=== PATIENT | female | born 1950 | race Caucasian/White ===

== ENCOUNTER → 2021-09-23 13:38 | Outpatient (BNVA) | payer MEDICARE, SELFPAY | PROVIDERS: PCP Internal Medicine; Visit Provider Nurse Practitioner Family | DX: G47.33 Obstructive sleep apnea (adult) (pediatric) (principal); G24.01 Drug induced subacute dyskinesia; T43.505A Adverse effect of unspecified antipsychotics and neuroleptics, initial encounter | CPT/HCPCS: 99212 ==

== ENCOUNTER → 2022-05-12 14:09 | Outpatient (BNVA) | payer MEDICARE, SELFPAY | PROVIDERS: PCP Internal Medicine; Visit Provider Nurse Practitioner Family | DX: G24.01 Drug induced subacute dyskinesia (principal); T43.505A Adverse effect of unspecified antipsychotics and neuroleptics, initial encounter; G47.33 Obstructive sleep apnea (adult) (pediatric); R25.2 Cramp and spasm | CPT/HCPCS: 99212 ==

== ENCOUNTER → 2022-11-14 12:42 | Outpatient (BNVA) | payer MEDICARE, SELFPAY | PROVIDERS: PCP Internal Medicine; Visit Provider Nurse Practitioner Family | DX: G47.33 Obstructive sleep apnea (adult) (pediatric) (principal); G24.01 Drug induced subacute dyskinesia; T43.505A Adverse effect of unspecified antipsychotics and neuroleptics, initial encounter; R25.2 Cramp and spasm | CPT/HCPCS: 99212 ==

== ENCOUNTER 2023-11-13 11:48 | Outpatient (AMB) | payer MEDICARE, SELFPAY ==
[2023-11-13 12:56] VITALS: BP 112/74; PULSE 65; O2SAT 95; BMI 24.7
--- NOTE | 2023-11-13 12:56 | A.OFFVIS_ITS ---
Vital Signs 11/13/23 12:56 Height 5 ft 5 in Weight 148 lb 8 oz BMI 24.7 BP 112/74 Blood Pressure Location Rt brachial Position Sitting Pulse 65 Pulse Source Pulse Oximeter Pulse Oximetry (%) 95 Oxygen Delivery Method Room Air Intake Visit Reasons: 1YR Follow up appt-Unable to lvm Intake Note: Patient presents for 1 year follow up. Patient was doing ok until all of sudden she started getting a little fatigue,had a procedure for her heart and doing better. Allergies hayfever Allergy (Unknown, Uncoded 11/13/23 12:59) Unknown HPI Comments Details: 73-yr-old female presents for follow-up visit. Pt underwent an interval cardiac ablation to manage tachycardia, palpitations, SOB- which was very helpful. She has started on Vit B-[address] Norton. She has been having more daytime fatigue. She wonders if she is just doing too much or expecting too much of herself. She has noticed increased involuntary foot movements- does not prevent herself from walking- can stop it. Has not noticed any oral movements- but never really has. She usually sleeps about 7 hrs. Uses her CPAP nightly. She does have restless sleep- has chronic low back pain which radiates into the LLE. Has LLE spasms/tightness, not full cramps. Uses Tylenol prn. Avoids NSAIDs d/t GERD. States was told she has degenerative disc changes in lumbar region. Also notes sensations of rectum pressure/fullness- like she would need to ahve a BM, but has an ostomy. This is a/w inability to void and bladder fullness. She has LLE weakness. She has never had l-spine mri. Compliant with Magnesium. Previous tried Gabapentin 300mg qd-bid- was not overly helpful. She has been doing PT exercises. 08/09/23- 11/06/23, 90 day CPAP compliance report looks good- usage > 4 hrs 100%, average use 6 hrs 57 min, residual AHI 4.1/hr. [facility] Medical History (Updated 11/13/23 @ 13:55 by GAYLA Hills) Basal cell carcinoma Surgical History (Updated 11/13/23 @ 13:01 by TALIB Logan) H/O heart surgery S/P Mohs surgery for basal cell carcinoma History of cataract extraction with lens replacement H/O splenectomy Family History Father Cancer Stroke Mother Cancer Social History Alcohol intake: never Patient Tobacco Use Status: Former Tobacco user Review of Systems Const All systems reviewed & are unremarkable except as noted in HPI and below Physical Exam Vital Signs: Last Vital Signs Pulse 65 11/13/23 12:56 BP 112/74 11/13/23 12:56 Pulse Ox 95 11/13/23 12:56 Oxygen Delivery Method Room Air 11/13/23 12:56 BMI result Body Mass Index 24.7 Const General: no acute distress Orientation/consciousness: patient oriented x3 HEENT Head: Yes normocephalic Resp Effort & Inspection: normal respiratory effort and able to speak in complete sentences Auscultation: clear to auscultation bilaterally Neuro Other: LLE MS 5-/5 on hip flexor RLE MS: 5/5 Slow to stand, slight stoop, short steps, antalgic gait, steady w/ walker. General: patient oriented x3 Deep tendon reflexes (DTR's): Right patellar reflex intensity grade: 2+ and Left patellar reflex intensity grade: 2+ Psych Mental Status: mental status grossly normal Speech and movement: Clear speech present Attitude: cooperative Results Reviewed Results Reviewed: PAP compliance report- see HPI Assessment & Plan Assessment & Plan (1) Obstructive sleep apnea: Code(s): G47.33 - Obstructive sleep apnea (adult) (pediatric) Category: Medical (2) Leg cramping: Code(s): R25.2 - Cramp and spasm Category: Medical (3) Neuroleptic-induced tardive dyskinesia: Comment: h/o Risperdal exposure, chronic Effexor. Code(s): G24.01 - Drug induced subacute dyskinesia; T43.505A - Adverse effect of unspecified antipsychotics and neuroleptics, initial encounter Category: Medical (4) Low back pain radiating to left lower extremity: Code(s): M54.50 - Low back pain, unspecified; M79.605 - Pain in left leg Category: Medical Plan Continue CPAP 8 cmH2O nightly > 4 hrs nightly, as pt is having good clinical reduction in AHI from use. Clean machine and change PAP supplies routinely. Pt advised that using CPAP cleaning machines may result in her PAP amchine's warranty to be voided. For fatigue- Continue B-12 supplement per PCP. Monitor effect. ? Will monitor TD s/s- currently mild, no indications to start TD agents at this time- pt not currently on any neuroleptics. Continue Magnesium 400mg qhs. For low back pain radiating into LLE w/ LLE weakness, rectal discomfort/bladder issues: Pt advised to undergo l-spine MRI- pt will think about this. Consider retrying gabapentin, or trying pregabalin- she will think about this. May try OTC topical Magnesium or Lidocaine lotions/creams/gels, ? f/u in 6 months or sooner prn. Coding Level of Care Code Est Pt Level 4 (37492) Diagnoses Obstructive sleep apnea G47.33 Leg cramping R25.2 Neuroleptic-induced tardive dyskinesia G24.01; T43.505A Low back pain radiating to left lower extremity M54.50; M79.605
== END 2023-11-13 13:53 | disposition home or self-care (01) ==
PROVIDERS: Visit Provider Nurse Practitioner Family
DX: G47.33 Obstructive sleep apnea (adult) (pediatric) (principal); G24.01 Drug induced subacute dyskinesia; T43.505A Adverse effect of unspecified antipsychotics and neuroleptics, initial encounter; M54.50 Low back pain, unspecified; M79.605 Pain in left leg
CPT/HCPCS: 99214

== ENCOUNTER → 2023-11-13 11:48 | Outpatient (BNVA) | payer MEDICARE, SELFPAY | PROVIDERS: Visit Provider Nurse Practitioner Family | DX: G47.33 Obstructive sleep apnea (adult) (pediatric) (principal); G24.01 Drug induced subacute dyskinesia; T43.505A Adverse effect of unspecified antipsychotics and neuroleptics, initial encounter; M54.50 Low back pain, unspecified; M79.605 Pain in left leg | CPT/HCPCS: 99212 ==

== ENCOUNTER 2024-05-29 14:38 | Outpatient (AMB) | payer MEDICARE, SELFPAY ==
[2024-05-29 14:50] VITALS: BP 132/78; PULSE 65; O2SAT 96; BMI 24.8
--- NOTE | 2024-05-29 14:50 | A.OFFVIS_ITS ---
Vital Signs 05/29/24 14:50 Height 5 ft 5 in Weight 149 lb BMI 24.8 BP 132/78 Blood Pressure Location Rt brachial Position Sitting Pulse 65 Pulse Source Pulse Oximeter Pulse Oximetry (%) 96 Oxygen Delivery Method Room Air Intake Visit Reasons: 6 month F/U Treatment Technician Required: No Accompanied by: Self / Same As Patient Allergies hayfever Allergy (Unknown, Uncoded 11/13/23 12:59) Unknown HPI Comments Details: 73-yr-old female presents for follow-up visit. Pt underwent an interval cardiac ablation in 2023 to manage tachycardia, palpitations, SOB- which was very helpful at [facility]. Dr. Finn. She was tarted on Vit B-12 IM at [facility] by Dr Norton. She has been having more daytime fatigue, dragging and foggy. She has noticed increased involuntary foot movements- does not prevent herself from walking- can stop it. Has not noticed any oral movements- but never really has. CPAP Compliance 02/28/2024- 05/27/2024 She usually sleeps about 7 hrs. Uses her CPAP nightly, Average use >4 hours 97%, average nightly use 6 hours and 52 min, pressures is 8cmH20, residual AHI is 5.7. She adjusts the pressures to 9cmH20 as feels smothered by the lower pressure. She does have restless sleep- has chronic low back pain which radiates into the LLE. Has LLE spasms/tightness, not full cramps. Uses Tylenol prn. Avoids NSAIDs d/t GERD. States was told she has degenerative disc changes in lumbar region. She has LLE weakness. Compliant with Magnesium, it helps with her facial tremors. She has been doing exercises with resistance bands and bike at home. She lives alone and manages all her ADLs by herself. She does have bouts of depression, uses Venlafaxine and it works well. [facility] Medical History Basal cell carcinoma Surgical History H/O heart surgery S/P Mohs surgery for basal cell carcinoma History of cataract extraction with lens replacement H/O splenectomy Family History Father Cancer Stroke Mother Cancer Social History Alcohol intake: never Patient Tobacco Use Status: Former Tobacco user Physical Exam Vital Signs: Last Vital Signs Pulse 65 05/29/24 14:50 BP 132/78 05/29/24 14:50 Pulse Ox 96 05/29/24 14:50 Oxygen Delivery Method Room Air 05/29/24 14:50 BMI result Body Mass Index 24.8 Const General: no acute distress Orientation/consciousness: patient oriented x3 HEENT Head: Yes normocephalic Resp Effort & Inspection: normal respiratory effort and able to speak in complete sentences Auscultation: clear to auscultation bilaterally Neuro Other: LLE MS 5-/5 on hip flexor RLE MS: 5/5 Slow to stand, slight stoop, short steps, antalgic gait, steady w/ walker. General: patient oriented x3 Deep tendon reflexes (DTR's): Right patellar reflex intensity grade: 2+ and Left patellar reflex intensity grade: 2+ Psych Mental Status: mental status grossly normal Speech and movement: Clear speech present Attitude: cooperative Assessment & Plan Assessment & Plan (1) Obstructive sleep apnea: Code(s): G47.33 - Obstructive sleep apnea (adult) (pediatric) Category: Medical (2) Neuroleptic-induced tardive dyskinesia: Comment: h/o Risperdal exposure, chronic Effexor. Code(s): G24.01 - Drug induced subacute dyskinesia; T43.505A - Adverse effect of unspecified antipsychotics and neuroleptics, initial encounter Category: Medical (3) Low back pain radiating to left lower extremity: Code(s): M54.50 - Low back pain, unspecified; M79.605 - Pain in left leg Category: Medical Plan CPAP is compliance is good, will increase pressure to 9cmH20, and see if the smothering feeling resolves. Continue CPAP nightly, as patient continues to experience good clinical effects. Continue Magnesium 400 mg PO daily for facial spasms. Will continue f/u in 6months, to conduct titration study if patient continues to feel 8cmH20 is not working well for her. Patient was seen with Dr. Boyd. Coding Level of Care Code Est Pt Level 4 (50153) Complex EM visit Add On G2211 Diagnoses Obstructive sleep apnea G47.33 Neuroleptic-induced tardive dyskinesia G24.01; T43.505A Low back pain radiating to left lower extremity M54.50; M79.605
== END 2024-05-29 15:28 | disposition home or self-care (01) ==
PROVIDERS: PCP Internal Medicine; Visit Provider Physician Assistant Medical
DX: G47.33 Obstructive sleep apnea (adult) (pediatric) (principal); G24.01 Drug induced subacute dyskinesia; T43.505A Adverse effect of unspecified antipsychotics and neuroleptics, initial encounter; M54.50 Low back pain, unspecified; M79.605 Pain in left leg
CPT/HCPCS: 99214; G2211

== ENCOUNTER → 2024-05-29 14:38 | Outpatient (BNVA) | payer MEDICARE, SELFPAY | PROVIDERS: PCP Internal Medicine; Visit Provider Physician Assistant Medical | DX: G47.33 Obstructive sleep apnea (adult) (pediatric) (principal); G24.01 Drug induced subacute dyskinesia; M54.50 Low back pain, unspecified; M79.605 Pain in left leg; T43.505D Adverse effect of unspecified antipsychotics and neuroleptics, subsequent encounter | CPT/HCPCS: 99212 ==

== ENCOUNTER 2024-11-27 13:15 | Outpatient (AMB) | payer MEDICARE, SELFPAY ==
--- OUTSIDE RECORDS SUMMARY | 2024-11-27 14:06 | XMS_ITS | Data Portability ---
Author Organization [facility], Main Office Address [address] [facility] [address] [place] [id number] Care Team Providers Care Bunch Maker Name Role Phone RASHAWN BUITRAGO Primary Care Provider JIMI JUAREZ Grinder Set Up Operator Thread SERGE MAXWELL Neurologist PEPE TATUM Energy Technician RACHEL CASAREZ Orthopedic Surgeon GEORGE NICK Orthopedic Surgeon [phone] [address] Mattress Weaver [facility] Referrin g Provider CYNDI BEST Weights And Measures Sealer STUART SHARP Referring Provider [phone] Assessment Encounter Date Assessment Date Assessment LastModified by Organization Details LastModified Time 02/03/2020 02/03/2020 This service was provided using telemedicine. Patient consented to telephone visit Patient was located at at home Provider was located in the office. No other persons participated in the telemedicine visit except for the patient unless otherwise indicated here. Total time of visit was 35 minutes. [email or web address] Not available 02/03/2020 12:05:20 Plan of Treatment Reminders Order Date Submit Date Provider Last Modified By Organization Details Last Modified Time Details Appointments None recorded. Lab lipid panel, serum 2019 [place] [facility], [address] [facility], [address], [address], 0 17:07:54 CMP, serum or plasma 2019 020 [facility], [address], [address], [place], [address], 0 17:07:52 CMP, serum or plasma 2018 019 [facility], [address], [address], [place], [address], 9 21:05:22 CBC w/ auto diff 2018 019 [facility], [address], [address], [place], [address], 9 19:26:18 lipid panel, serum 2018 019 [facility], [address], [address], [place], [address], 9 20:56:15 CBC w/ auto diff 2017 018 [facility], [address], [address], [place], [address], 8 19:44:02 BMP, serum or plasma 2017 018 [facility], [address], [address], [place], [address], 8 15:40:29 CBC w/ auto diff 2017 018 [facility], [address], [address], [place], [address], 9 19:55:50 Referral None recorded. Procedures None recorded. Surgeries None recorded. Imaging electrocard iogram 2018 019 [email or web address] In-Office Order, Internal Use Only DO Not Attach Compendium DO Not Attach Compendium, Do Not Delete/merge, [id number] 9 16:54:58 Medication Orders None recorded. Patient TargetsNo targets recorded. Patient Instructions Encounter Date Encounter Id Patient Instructions Last Modified By Organization Details Last Modified Time 05/02/2018 [id number] At [facility] follow up visit, all current and discharge medications (OTC, herbal therapies, supplements) reviewed and reconciled with patient and or caregiver, including potential side effects, drug interactions, instructions, and the consequences of not taking medication. Reviewed potential barriers to medication adherence, such as side effects from medication or cost of medication. I have reviewed the note and agree with the assessment and plan of care. [email or web address] Not available 05/03/2018 05:34:00 05/17/2018 [id number] coughing up blood: care instructions [email or web address] Not available 05/18/2018 10:43:17 pneumonia: care instructions [email or web address] Not available 05/17/2018 13:25:35 bronchiectasis: care instructions [email or web address] Not available 05/18/2018 10:43:59 anemia: care instructions [email or web address] Not available 05/17/2018 13:25:35 Medications (OTC, herbal therapies, supplements) reviewed and reconciled with patient and or caregiver, including potential side effects, drug interactions, instructions, and the consequences of not taking medication. Reviewed potential barriers to medication adherence, such as side effects from medication or cost of medication. [email or web address] Not available 05/18/2018 10:43:43 12/03/2018 [id number] high cholesterol: care instructions [email or web address] Not available 12/03/2018 13:50:20 crohn's disease: care instructions [email or web address] Not available 12/03/2018 13:47:14 preventing falls: care instructions [email or web address] Not available 12/03/2018 13:47:14 medicare preventive services guide (female 74yrs and under) [email or web address] Not available 12/03/2018 13:47:14 depression treatment: care instructions [email or web address] Not available 12/03/2018 13:47:14 Reviewed the risks and benefits of continuous churn buttermaker opiate use, OUD discussed with the patient. Reviewed the risks and benefits of other non-opioid pain therapies. Reviewed caution with driving, fall risk, treatment for constipation. Patient verbalizes understanding of risk and benefits, and of OUD. [email or web address] Not available 12/03/2018 13:07:21 04/17/2019 [id number] low blood pressure: care instructions [email or web address] Not available 04/17/2019 16:29:47 02/03/2020 [id number] high cholesterol: care instructions [email or web address] Not available 02/03/2020 12:08:26 preventing falls: care instructions [email or web address] Not available 02/03/2020 12:05:21 medicare preventive services guide (female 74yrs and under) [email or web address] Not available 02/03/2020 12:05:21 depression treatment: care instructions [email or web address] Not available 02/03/2020 12:09:05 Reviewed the risks and benefits of continuous churn buttermaker opiate use, OUD discussed with the patient. Reviewed the risks and benefits of other non-opioid pain therapies. Reviewed caution with driving, fall risk, treatment for constipation. Patient verbalizes understanding of risk and benefits, and of OUD. [email or web address] Not available 02/03/2020 11:01:00 Reason for Referral None Reported. Results Created Date Observation Date Name Description Value Unit Range Abnormal Flag Note LastModifiedBy Organization Detail LastModifiedTime 05/02/2005/02/2018 BMP, serum or plasm a glucose 91 mg/dL (70-99 ) Not Available [facility] (Centralized Electronic Ordering - All Locations) Patient Can Go To The Location Of Their Choice, [id number] 05/02/2018 15:40:29 05/02/2005/02/2018 BMP, serum or plasm a BUN 23 mg/dL (8-23) Not Available [facility] (Centralized Electronic Ordering - All Locations) Patient Can Go To The Location Of Their Choice, [id number] 05/02/2018 15:40:29 05/02/2005/02/2018 BMP, serum or plasm a creatinine 0.8 mg/dL (0.5-1 .0) Not Available [facility] (Centralized Electronic Ordering - All Locations) Patient Can Go To The Location Of Their Choice, 05/02/2018 15:40:29 05/02/2005/02/2018 BMP, serum or plasm a sodium 143 mmol/ L (133-1 45) Not Available [facility] (Centralized Electronic Ordering - All Locations) Patient Can Go To The Location Of Their Choice, [id number] 05/02/2018 15:40:29 05/02/2005/02/2018 BMP, serum or plasm a potassium 4.5 mmol/ L (3.6-5 .2) Not Available [facility] (Centralized Electronic Ordering - All Locations) Patient Can Go To The Location Of Their Choice, 05/02/2018 15:40:29 05/02/2005/02/2018 BMP, serum or plasm a chloride 108 mmol/ L (98-10 7) high Not Available [facility] (Centralized Electronic Ordering - All Locations) Patient Can Go To The Location Of Their Choice, 05/02/2018 15:40:29 05/02/2005/02/2018 BMP, serum or plasm a bicarbonate 22 mmol/ L (22-29 ) Not Available [facility] (Centralized Electronic Ordering - All Locations) Patient Can Go To The Location Of Their Choice, 05/02/2018 15:40:29 05/02/2005/02/2018 BMP, serum or plasm a anion gap 13 (4-17) Not Available [facility] (Centralized Electronic Ordering - All Locations) Patient Can Go To The Location Of Their Choice, 05/02/2018 15:40:29 05/02/2005/02/2018 BMP, serum or plasm a calcium 9.3 mg/dL (8.6-1 0.5) Not Available [facility] (Centralized Electronic Ordering - All Locations) Patient Can Go To The Location Of Their Choice, 05/02/2018 15:40:29 05/02/2005/02/2018 BMP, serum or plasm a est GFR non 75 mL/mi n/1.7 3_M2 Creat inine based estim ated glome rular filtr ation rate (eGFR ) is calcu lated using the Chron ic Kidne y Disea se Epide miolo gy Colla borat ion (CKD- EPI). The CKD-E PI creat inine equat ion has not been valid ated in child traci (<18 years ), pregn ant women or in some racia l or ethni c subgr oups other than Cauca sians and Afric an Ameri cans. Not Available [facility] (Centralized Electronic Ordering - All Locations) Patient Can Go To The Location Of Their Choice, 05/02/2018 15:40:29 05/02/2005/02/2018 BMP, serum or plasm a est GFR 87 mL/mi n/1.7 3_M2 Creat inine based estim ated aryan hawkinsr filtr ation rate (eGFR ) is calcu lated using the Chron ic Kidne y Disea se Epide miolo gy Colla borat ion (CKD- EPI). The CKD-E PI creat inine equat ion has not been valid ated in child traci (<18 years ), pregn ant women or in some racia l or ethni c subgr oups other than Cauca sians and Afric an Ameri cans. Not Available [facility] (Centralized Electronic Ordering - All Locations) Patient Can Go To The Location Of Their Choice, 05/02/2018 15:40:29 05/17/2005/17/2018 CBC w/ auto diff WBC 8.6 K/mm3 (4.0-1 1.0) Not Available [facility] (Centralized Electronic Ordering - All Locations) Patient Can Go To The Location Of Their Choice, 05/17/2018 19:44:02 05/17/2005/17/2018 CBC w/ auto diff RBC 3.86 M/mm3 (4.20- 5.40) low Not Available [facility] (Centralized Electronic Ordering - All Locations) Patient Can Go To The Location Of Their Choice, 05/17/2018 19:44:02 05/17/2005/17/2018 CBC w/ auto diff HGB 12.3 gm/dL (11.7- 15.5) Not Available [facility] (Centralized Electronic Ordering - All Locations) Patient Can Go To The Location Of Their Choice, 05/17/2018 19:44:02 05/17/2005/17/2018 CBC w/ auto diff HCT 38.3 % (35.7- 45.8) Not Available [facility] (Centralized Electronic Ordering - All Locations) Patient Can Go To The Location Of Their Choice, 05/17/2018 19:44:02 05/17/2005/17/2018 CBC w/ auto diff MCV 99.2 fL (80.0- 100.0) Not Available [facility] (Centralized Electronic Ordering - All Locations) Patient Can Go To The Location Of Their Choice, 05/17/2018 19:44:02 05/17/20 18 05/17/2018 CBC w/ auto diff MCH 31.9 pg (27.0- 34.0) Not Available [facility] (Centralized Electronic Ordering - All Locations) Patient Can Go To The Location Of Their Choice, 05/17/2018 19:44:02 05/17/20 18 05/17/2018 CBC w/ auto diff MCHC 32.1 g/dL (33.0- 37.0) low Not Available [facility] (Centralized Electronic Ordering - All Locations) Patient Can Go To The Location Of Their Choice, 05/17/2018 19:44:02 05/17/20 18 05/17/2018 CBC w/ auto diff plt 370 K/mm3 (150-4 60) Not Available [facility] (Centralized Electronic Ordering - All Locations) Patient Can Go To The Location Of Their Choice, 05/17/2018 19:44:02 05/17/20 18 05/17/2018 CBC w/ auto diff RDW-SD 50.5 fL (<47.0 ) high Not Available [facility] (Centralized Electronic Ordering - All Locations) Patient Can Go To The Location Of Their Choice, 05/17/2018 19:44:02 05/17/20 18 05/17/2018 CBC w/ auto diff MPV 11.2 fL (9.4-1 2.4) Not Available [facility] (Centralized Electronic Ordering - All Locations) Patient Can Go To The Location Of Their Choice, 05/17/2018 19:44:02 05/17/20 18 05/17/2018 CBC w/ auto diff automated NRBC 0.0 #/100 _WBC' s Not Available [facility] (Centralized Electronic Ordering - All Locations) Patient Can Go To The Location Of Their Choice, 05/17/2018 19:44:02 05/17/20 18 05/17/2018 CBC w/ auto diff abs. NRBC 0.0 K/mm3 Not Available [facility] (Centralized Electronic Ordering - All Locations) Patient Can Go To The Location Of Their Choice, 05/17/2018 19:44:02 05/17/20 18 05/17/2018 CBC w/ auto diff neut # 5.5 K/mm3 (1.3-7 .0) Not Available [facility] (Centralized Electronic Ordering - All Locations) Patient Can Go To The Location Of Their Choice, 05/17/2018 19:44:02 05/17/20 18 05/17/2018 CBC w/ auto diff lymph # 1.6 K/mm3 (0.8-3 .1) Not Available [facility] (Centralized Electronic Ordering - All Locations) Patient Can Go To The Location Of Their Choice, 05/17/2018 19:44:02 05/17/20 18 05/17/2018 CBC w/ auto diff mono# 0.9 K/mm3 (0.4-0 .9) Not Available [facility] (Centralized Electronic Ordering - All Locations) Patient Can Go To The Location Of Their Choice, 05/17/2018 19:44:02 05/17/2005/17/2018 CBC w/ auto diff eo # 0.5 K/mm3 (0.0-0 .4) high Not Available [facility] (Centralized Electronic Ordering - All Locations) Patient Can Go To The Location Of Their Choice, 05/17/2018 19:44:02 05/17/20 18 05/17/2018 CBC w/ auto diff baso # 0.1 K/mm3 (0.0-0 .1) Not Available [facility] (Centralized Electronic Ordering - All Locations) Patient Can Go To The Location Of Their Choice, 05/17/2018 19:44:02 05/17/20 18 05/17/2018 CBC w/ auto diff abs. imm gran 0.1 K/mm3 Not Available [facility] (Centralized Electronic Ordering - All Locations) Patient Can Go To The Location Of Their Choice, 05/17/2018 19:44:02 05/17/20 18 05/17/2018 CBC w/ auto diff neut 64.2 % (44-76 ) Not Available [facility] (Centralized Electronic Ordering - All Locations) Patient Can Go To The Location Of Their Choice, 05/17/2018 19:44:02 05/17/20 18 05/17/2018 CBC w/ auto diff lymph 18.4 % (15-43 ) Not Available [facility] (Centralized Electronic Ordering - All Locations) Patient Can Go To The Location Of Their Choice, 05/17/2018 19:44:02 05/17/20 18 05/17/2018 CBC w/ auto diff monocyte 10.0 % (4.5-1 0.5) Not Available [facility] (Centralized Electronic Ordering - All Locations) Patient Can Go To The Location Of Their Choice, 05/17/2018 19:44:02 05/17/2005/17/2018 CBC w/ auto diff eo 5.7 % (0-6) Not Available [facility] (Centralized Electronic Ordering - All Locations) Patient Can Go To The Location Of Their Choice, 05/17/2018 19:44:02 05/17/2005/17/2018 CBC w/ auto diff baso 1.0 % (0-2) Not Available [facility] (Centralized Electronic Ordering - All Locations) Patient Can Go To The Location Of Their Choice, 05/17/2018 19:44:02 05/17/2005/17/2018 CBC w/ auto diff imm gran 0.7 % (0.0-0 .6) high Not Available [facility] (Centralized Electronic Ordering - All Locations) Patient Can Go To The Location Of Their Choice, 05/17/2018 19:44:02 05/17/2005/17/2018 BMP, serum or plasm a glucose 88 mg/dL (70-99 ) Not Available [facility] (Centralized Electronic Ordering - All Locations) Patient Can Go To The Location Of Their Choice, 05/17/2018 21:33:52 05/17/2005/17/2018 BMP, serum or plasm a BUN 14 mg/dL (8-23) Not Available [facility] (Centralized Electronic Ordering - All Locations) Patient Can Go To The Location Of Their Choice, 05/17/2018 21:33:52 05/17/2005/17/2018 BMP, serum or plasm a creatinine 0.8 mg/dL (0.5-1 .0) Not Available [facility] (Centralized Electronic Ordering - All Locations) Patient Can Go To The Location Of Their Choice, 05/17/2018 21:33:52 05/17/2005/17/2018 BMP, serum or plasm a sodium 141 mmol/ L (133-1 45) Not Available [facility] (Centralized Electronic Ordering - All Locations) Patient Can Go To The Location Of Their Choice, 05/17/2018 21:33:52 05/17/2005/17/2018 BMP, serum or plasm a potassium 4.5 mmol/ L (3.6-5 .2) Not Available [facility] (Centralized Electronic Ordering - All Locations) Patient Can Go To The Location Of Their Choice, 05/17/2018 21:33:52 05/17/2005/17/2018 BMP, serum or plasm a chloride 103 mmol/ L (98-10 7) Not Available [facility] (Centralized Electronic Ordering - All Locations) Patient Can Go To The Location Of Their Choice, 05/17/2018 21:33:52 05/17/2005/17/2018 BMP, serum or plasm a bicarbonate 25 mmol/ L (22-29 ) Not Available [facility] (Centralized Electronic Ordering - All Locations) Patient Can Go To The Location Of Their Choice, 05/17/2018 21:33:52 05/17/2005/17/2018 BMP, serum or plasm a anion gap 13 (4-17) Not Available [facility] (Centralized Electronic Ordering - All Locations) Patient Can Go To The Location Of Their Choice, 05/17/2018 21:33:52 05/17/2005/17/2018 BMP, serum or plasm a calcium 9.8 mg/dL (8.6-1 0.5) Not Available [facility] (Centralized Electronic Ordering - All Locations) Patient Can Go To The Location Of Their Choice, 05/17/2018 21:33:52 05/17/2005/17/2018 BMP, serum or plasm a est GFR non 75 mL/mi n/1.7 3_M2 Creat inine based estim ated glome rular filtr ation rate (eGFR ) is calcu lated using the Chron ic Kidne y Disea se Epide miolo gy Colla borat ion (CKD- EPI). The CKD-E PI creat inine equat ion has not been valid ated in child traci (<18 years ), pregn ant women or in some racia l or ethni c subgr oups other than Cauca sians and Afric an Ameri cans. Not Available [facility] (Centralized Electronic Ordering - All Locations) Patient Can Go To The Location Of Their Choice, 05/17/2018 21:33:52 05/17/2005/17/2018 BMP, serum or plasm a est GFR 87 mL/mi n/1.7 3_M2 Creat inine based estim ated glome rular filtr ation rate (eGFR ) is calcu lated using the Chron ic Kidne y Disea se Epide miolo gy Colla borat ion (CKD- EPI). The CKD-E PI creat inine equat ion has not been valid ated in child traci (<18 years ), pregn ant women or in some racia l or ethni c subgr oups other than Cauca sians and Afric an Ameri cans. Not Available [facility] (Centralized Electronic Ordering - All Locations) Patient Can Go To The Location Of Their Choice, 05/17/2018 21:33:52 12/04/1912/03/2018 CBC w/ auto diff WBC 6.7 K/mm3 (4.0-1 1.0) Not Available [facility] (Centralized Electronic Ordering - All Locations) Patient Can Go To The Location Of Their Choice, 12/03/2018 19:55:50 12/04/1912/03/2018 CBC w/ auto diff RBC 3.93 M/mm3 (4.20- 5.40) low Not Available [facility] (Centralized Electronic Ordering - All Locations) Patient Can Go To The Location Of Their Choice, 12/03/2018 19:55:50 12/04/1912/03/2018 CBC w/ auto diff HGB 12.5 gm/dL (11.7- 15.5) Not Available [facility] (Centralized Electronic Ordering - All Locations) Patient Can Go To The Location Of Their Choice, 12/03/2018 19:55:50 12/04/1912/03/2018 CBC w/ auto diff HCT 39.1 % (35.7- 45.8) Not Available [facility] (Centralized Electronic Ordering - All Locations) Patient Can Go To The Location Of Their Choice, 12/03/2018 19:55:50 12/04/1912/03/2018 CBC w/ auto diff MCV 99.5 fL (80.0- 100.0) Not Available [facility] (Centralized Electronic Ordering - All Locations) Patient Can Go To The Location Of Their Choice, 12/03/2018 19:55:50 12/04/1912/03/2018 CBC w/ auto diff MCH 31.8 pg (27.0- 34.0) Not Available [facility] (Centralized Electronic Ordering - All Locations) Patient Can Go To The Location Of Their Choice, 12/03/2018 19:55:50 12/04/1912/03/2018 CBC w/ auto diff MCHC 32.0 g/dL (33.0- 37.0) low Not Available [facility] (Centralized Electronic Ordering - All Locations) Patient Can Go To The Location Of Their Choice, 12/03/2018 19:55:50 12/04/1912/03/2018 CBC w/ auto diff plt 291 K/mm3 (150-4 60) Not Available [facility] (Centralized Electronic Ordering - All Locations) Patient Can Go To The Location Of Their Choice, 12/03/2018 19:55:50 12/04/1912/03/2018 CBC w/ auto diff RDW-SD 51.9 fL (<47.0 ) high Not Available [facility] (Centralized Electronic Ordering - All Locations) Patient Can Go To The Location Of Their Choice, 12/03/2018 19:55:50 12/04/1912/03/2018 CBC w/ auto diff MPV 11.9 fL (9.4-1 2.4) Not Available [facility] (Centralized Electronic Ordering - All Locations) Patient Can Go To The Location Of Their Choice, 12/03/2018 19:55:50 12/04/1912/03/2018 CBC w/ auto diff automated NRBC 0.0 #/100 _WBC' s Not Available [facility] (Centralized Electronic Ordering - All Locations) Patient Can Go To The Location Of Their Choice, 12/03/2018 19:55:50 12/04/1912/03/2018 CBC w/ auto diff abs. NRBC 0.0 K/mm3 Not Available [facility] (Centralized Electronic Ordering - All Locations) Patient Can Go To The Location Of Their Choice, 12/03/2018 19:55:50 12/04/1912/03/2018 CBC w/ auto diff neut # 3.9 K/mm3 (1.3-7 .0) Not Available [facility] (Centralized Electronic Ordering - All Locations) Patient Can Go To The Location Of Their Choice, 12/03/2018 19:55:50 12/04/1912/03/2018 CBC w/ auto diff lymph # 1.7 K/mm3 (0.8-3 .1) Not Available [facility] (Centralized Electronic Ordering - All Locations) Patient Can Go To The Location Of Their Choice, 12/03/2018 19:55:50 12/04/1912/03/2018 CBC w/ auto diff mono# 0.7 K/mm3 (0.4-0 .9) Not Available [facility] (Centralized Electronic Ordering - All Locations) Patient Can Go To The Location Of Their Choice, 12/03/2018 19:55:50 12/04/1912/03/2018 CBC w/ auto diff eo # 0.3 K/mm3 (0.0-0 .4) Not Available [facility] (Centralized Electronic Ordering - All Locations) Patient Can Go To The Location Of Their Choice, 12/03/2018 19:55:50 12/04/1912/03/2018 CBC w/ auto diff baso # 0.1 K/mm3 (0.0-0 .1) Not Available [facility] (Centralized Electronic Ordering - All Locations) Patient Can Go To The Location Of Their Choice, 12/03/2018 19:55:50 12/04/1912/03/2018 CBC w/ auto diff abs. imm gran 0.0 K/mm3 Not Available [facility] ([facility] Ordering - All Locations) Patient Can Go To The Location Of Their Choice, 12/03/2018 19:55:50 12/04/1912/03/2018 CBC w/ auto diff neut 58.3 % (44-76 ) Not Available [facility] (Centralized Electronic Ordering - All Locations) Patient Can Go To The Location Of Their Choice, 12/03/2018 19:55:50 12/04/1912/03/2018 CBC w/ auto diff lymph 25.0 % (15-43 ) Not Available [facility] (Centralized Electronic Ordering - All Locations) Patient Can Go To The Location Of Their Choice, 12/03/2018 19:55:50 12/04/1912/03/2018 CBC w/ auto diff monocyte 10.9 % (4.5-1 0.5) high Not Available [facility] (Centralized Electronic Ordering - All Locations) Patient Can Go To The Location Of Their Choice, 12/03/2018 19:55:50 12/04/1912/03/2018 CBC w/ auto diff eo 4.2 % (0-6) Not Available [facility] (Centralized Electronic Ordering - All Locations) Patient Can Go To The Location Of Their Choice, 12/03/2018 19:55:50 12/04/1912/03/2018 CBC w/ auto diff baso 1.0 % (0-2) Not Available [facility] (Centralized Electronic Ordering - All Locations) Patient Can Go To The Location Of Their Choice, 12/03/2018 19:55:50 12/04/1912/03/2018 CBC w/ auto diff imm gran 0.6 % (0.0-0 .6) Not Available [facility] (Centralized Electronic Ordering - All Locations) Patient Can Go To The Location Of Their Choice, 12/03/2018 19:55:50 12/04/1912/03/2018 lipid panel , serum cholesterol, total 209 mg/dL (<200) high Not Available [facility] ([facility] Ordering - All Locations) Patient Can Go To The Location Of Their Choice, 12/03/2018 20:56:15 12/04/1912/03/2018 lipid panel , serum triglyceride 89 mg/dL (<150) Not Available [facility] ([facility] Order[facility] - All Locations) Patient Can Go To The Location Of Their Choice, 12/03/2018 20:56:15 12/04/1912/03/2018 lipid panel , serum HDL chol 85 mg/dL (>39) Not Available [facility] (Centralized Electronic Ordering - All Locations) Patient Can Go To The Location Of Their Choice, 12/03/2018 20:56:15 12/04/1912/03/2018 lipid panel , serum LDL cholesterol, calculated 106 mg/dL (0-130 ) Not Available [facility] (Centralized Electronic Ordering - All Locations) Patient Can Go To The Location Of Their Choice, 12/03/2018 20:56:15 12/04/1912/03/2018 lipid panel , serum non HDL cholesterol (calc) 124 mg/dL (<160) Not Available [facility] ([facility] Ordering - All Locations) Patient Can Go To The Location Of Their Choice, [id number] 12/03/2018 20:56:15 04/17/20 19 04/17/2019 samuel [email or web address] am done Not Available In-Office Order Internal Use Only DO Not Attach Compendium DO Not Attach Compendium, Do Not Delete/merge, [id number] 04/17/2019 16:38:28 04/19/20 19 04/19/2019 CBC w/ auto diff WBC 7.9 K/mm3 (4.0-1 1.0) Not Available [facility] (Centralized Electronic Ordering - All Locations) Patient Can Go To The Location Of Their Choice, 04/19/2019 19:26:18 04/19/20 19 04/19/2019 CBC w/ auto diff RBC 3.95 M/mm3 (4.20- 5.40) low Not Available [facility] (Centralized Electronic Ordering - All Locations) Patient Can Go To The Location Of Their Choice, 04/19/2019 19:26:18 04/19/20 19 04/19/2019 CBC w/ auto diff HGB 12.3 gm/dL (11.7- 15.5) Not Available [facility] (Centralized Electronic Ordering - All Locations) Patient Can Go To The Location Of Their Choice, 04/19/2019 19:26:18 04/19/20 19 04/19/2019 CBC w/ auto diff HCT 39.5 % (35.7- 45.8) Not Available [facility] (Centralized Electronic Ordering - All Locations) Patient Can Go To The Location Of Their Choice, 04/19/2019 19:26:18 04/19/20 19 04/19/2019 CBC w/ auto diff MCV 100.0 fL (80.0- 100.0) Not Available [facility] (Centralized Electronic Ordering - All Locations) Patient Can Go To The Location Of Their Choice, 04/19/2019 19:26:18 04/19/20 19 04/19/2019 CBC w/ auto diff MCH 31.1 pg (27.0- 34.0) Not Available [facility] (Centralized Electronic Ordering - All Locations) Patient Can Go To The Location Of Their Choice, 04/19/2019 19:26:18 04/19/20 19 04/19/2019 CBC w/ auto diff MCHC 31.1 g/dL (33.0- 37.0) low Not Available [facility] (Centralized Electronic Ordering - All Locations) Patient Can Go To The Location Of Their Choice, 04/19/2019 19:26:18 04/19/20 19 04/19/2019 CBC w/ auto diff plt 289 K/mm3 (150-4 60) Not Available [facility] (Centralized Electronic Ordering - All Locations) Patient Can Go To The Location Of Their Choice, 04/19/2019 19:26:18 04/19/20 19 04/19/2019 CBC w/ auto diff RDW-SD 53.3 fL (<47.0 ) high Not Available [facility] (Centralized Electronic Ordering - All Locations) Patient Can Go To The Location Of Their Choice, 04/19/2019 19:26:18 04/19/20 19 04/19/2019 CBC w/ auto diff MPV 11.7 fL (9.4-1 2.4) Not Available [facility] (Centralized Electronic Ordering - All Locations) Patient Can Go To The Location Of Their Choice, 04/19/2019 19:26:18 04/19/20 19 04/19/2019 CBC w/ auto diff automated NRBC 0.0 #/100 _WBC' s Not Available [facility] (Centralized Electronic Ordering - All Locations) Patient Can Go To The Location Of Their Choice, 04/19/2019 19:26:18 04/19/2004/19/2019 CBC w/ auto diff abs. NRBC 0.0 K/mm3 Not Available [facility] (Centralized Electronic Ordering - All Locations) Patient Can Go To The Location Of Their Choice, 04/19/2019 19:26:18 04/19/20 19 04/19/2019 CMP, serum or plasm a glucose 90 mg/dL (70-99 ) Not Available [facility] (Centralized Electronic Ordering - All Locations) Patient Can Go To The Location Of Their Choice, 04/19/2019 21:05:22 04/19/20 19 04/19/2019 CMP, serum or plasm a BUN 15 mg/dL (8-23) Not Available [facility] (Centralized Electronic Ordering - All Locations) Patient Can Go To The Location Of Their Choice, 04/19/2019 21:05:22 04/19/2004/19/2019 CMP, serum or plasm a creatinine 0.8 mg/dL (0.5-1 .0) Not Available [facility] (Centralized Electronic Ordering - All Locations) Patient Can Go To The Location Of Their Choice, 04/19/2019 21:05:22 04/19/2004/19/2019 CMP, serum or plasm a sodium 143 mmol/ L (133-1 45) Not Available [facility] (Centralized Electronic Ordering - All Locations) Patient Can Go To The Location Of Their Choice, 04/19/2019 21:05:22 04/19/2004/19/2019 CMP, serum or plasm a potassium 4.4 mmol/ L (3.6-5 .2) Not Available [facility] (Centralized Electronic Ordering - All Locations) Patient Can Go To The Location Of Their Choice, 04/19/2019 21:05:22 04/19/2004/19/2019 CMP, serum or plasm a chloride 109 mmol/ L (98-10 7) high Not Available [facility] (Centralized Electronic Ordering - All Locations) Patient Can Go To The Location Of Their Choice, 04/19/2019 21:05:22 04/19/2004/19/2019 CMP, serum or plasm a bicarbonate 22 mmol/ L (22-29 ) Not Available [facility] (Centralized Electronic Ordering - All Locations) Patient Can Go To The Location Of Their Choice, 04/19/2019 21:05:22 04/19/2004/19/2019 CMP, serum or plasm a anion gap 12 (4-17) Not Available [facility] (Centralized Electronic Ordering - All Locations) Patient Can Go To The Location Of Their Choice, 04/19/2019 21:05:22 04/19/2004/19/2019 CMP, serum or plasm a albumin 4.3 gm/dL (3.4-4 .8) Not Available [facility] (Centralized Electronic Ordering - All Locations) Patient Can Go To The Location Of Their Choice, 04/19/2019 21:05:22 04/19/2004/19/2019 CMP, serum or plasm a calcium 9.2 mg/dL (8.6-1 0.5) Not Available [facility] (Centralized Electronic Ordering - All Locations) Patient Can Go To The Location Of Their Choice, 04/19/2019 21:05:22 04/19/2004/19/2019 CMP, serum or plasm a bilirubin,to letty 0.3 mg/dL (0-1.2 ) Not Available [facility] (Centralized Electronic Ordering - All Locations) Patient Can Go To The Location Of Their Choice, 04/19/2019 21:05:22 04/19/2004/19/2019 CMP, serum or plasm a total protein 6.5 gm/dL (6.2-8 .2) Not Available [facility] (Centralized Electronic Ordering - All Locations) Patient Can Go To The Location Of Their Choice, 04/19/2019 21:05:22 04/19/2004/19/2019 CMP, serum or plasm a Ag ratio 2.0 Not Available [facility] (Centralized Electronic Ordering - All Locations) Patient Can Go To The Location Of Their Choice, 04/19/2019 21:05:22 04/19/2004/19/2019 CMP, serum or plasm a AST 22 U/L (0-32) Not Available [facility] (Centralized Electronic Ordering - All Locations) Patient Can Go To The Location Of Their Choice, 04/19/2019 21:05:22 04/19/2004/19/2019 CMP, serum or plasm a alk phos 84 U/L (35-10 4) Not Available [facility] (Centralized Electronic Ordering - All Locations) Patient Can Go To The Location Of Their Choice, 04/19/2019 21:05:22 04/19/2004/19/2019 CMP, serum or plasm a ALT 18 U/L (0-33) Not Available [facility] (Centralized Electronic Ordering - All Locations) Patient Can Go To The Location Of Their Choice, 04/19/2019 21:05:22 04/19/2004/19/2019 CMP, serum or plasm a est GFR non 74 mL/mi n/1.7 3_M2 Creat inine based estim ated glome rular filtr ation rate (eGFR ) is calcu lated using the Chron ic Kidne y Disea se Epide miolo gy Colla borat ion (CKD- EPI). The CKD-E PI creat inine equat ion has not been valid ated in child traci (<18 years ), pregn ant women or in some racia l or ethni c subgr oups other than Cauca sians and Afric an Ameri cans. Not Available [facility] (Centralized Electronic Ordering - All Locations) Patient Can Go To The Location Of Their Choice, 04/19/2019 21:05:22 04/19/20 19 04/19/2019 CMP, serum or plasm a est GFR 86 mL/mi n/1.7 3_M2 Creat inine based estim ated glome rular filtr ation rate (eGFR ) is calcu lated using the Chron ic Kidne y Disea se Epide miolo gy Colla borat ion (CKD- EPI). The CKD-E PI creat inine equat ion has not been valid ated in child traci (<18 years ), pregn ant women or in some racia l or ethni c subgr oups other than Cauca sians and Afric an Ameri cans. Not Available [facility] (Centralized Electronic Ordering - All Locations) Patient Can Go To The Location Of Their Choice, 04/19/2019 21:05:22 02/11/2002/11/2020 CMP, serum or plasm a glucose 98 mg/dL (70-99 ) Not Available [facility] (Centralized Electronic Ordering - All Locations) Patient Can Go To The Location Of Their Choice, 02/11/2020 17:07:52 02/11/2002/11/2020 CMP, serum or plasm a BUN 15 mg/dL (8-23) Not Available [facility] (Centralized Electronic Ordering - All Locations) Patient Can Go To The Location Of Their Choice, 02/11/2020 17:07:52 02/11/2002/11/2020 CMP, serum or plasm a creatinine 0.8 mg/dL (0.5-1 .0) Not Available [facility] (Centralized Electronic Ordering - All Locations) Patient Can Go To The Location Of Their Choice, 02/11/2020 17:07:52 02/11/2002/11/2020 CMP, serum or plasm a sodium 144 mmol/ L (133-1 45) Not Available [facility] (Centralized Electronic Ordering - All Locations) Patient Can Go To The Location Of Their Choice, 02/11/2020 17:07:52 02/11/2002/11/2020 CMP, serum or plasm a potassium 4.2 mmol/ L (3.6-5 .2) Not Available [facility] (Centralized Electronic Ordering - All Locations) Patient Can Go To The Location Of Their Choice, 02/11/2020 17:07:52 02/11/2002/11/2020 CMP, serum or plasm a chloride 110 mmol/ L (98-10 7) high Not Available [facility] (Centralized Electronic Ordering - All Locations) Patient Can Go To The Location Of Their Choice, 02/11/2020 17:07:52 02/11/2002/11/2020 CMP, serum or plasm a bicarbonate 25 mmol/ L (22-29 ) Not Available [facility] (Centralized Electronic Ordering - All Locations) Patient Can Go To The Location Of Their Choice, 02/11/2020 17:07:52 02/11/2002/11/2020 CMP, serum or plasm a anion gap 9 (4-17) Not Available [facility] (Centralized Electronic Ordering - All Locations) Patient Can Go To The Location Of Their Choice, 02/11/2020 17:07:52 02/11/2002/11/2020 CMP, serum or plasm a albumin 4.5 gm/dL (3.4-4 .8) Not Available [facility] (Centralized Electronic Ordering - All Locations) Patient Can Go To The Location Of Their Choice, 02/11/2020 17:07:52 02/11/2002/11/2020 CMP, serum or plasm a calcium 9.4 mg/dL (8.6-1 0.5) Not Available [facility] (Centralized Electronic Ordering - All Locations) Patient Can Go To The Location Of Their Choice, 02/11/2020 17:07:52 02/11/2002/11/2020 CMP, serum or plasm a bilirubin,to letty 0.3 mg/dL (0-1.2 ) Not Available [facility] (Centralized Electronic Ordering - All Locations) Patient Can Go To The Location Of Their Choice, 02/11/2020 17:07:52 02/11/2002/11/2020 CMP, serum or plasm a total protein 6.2 gm/dL (6.2-8 .2) Not Available [facility] (Centralized Electronic Ordering - All Locations) Patient Can Go To The Location Of Their Choice, 02/11/2020 17:07:52 02/11/2002/11/2020 CMP, serum or plasm a Ag ratio 2.7 Not Available [facility] (Centralized Electronic Ordering - All Locations) Patient Can Go To The Location Of Their Choice, 02/11/2020 17:07:52 02/11/2002/11/2020 CMP, serum or plasm a AST 21 U/L (0-32) Not Available [facility] (Centralized Electronic Ordering - All Locations) Patient Can Go To The Location Of Their Choice, 02/11/2020 17:07:52 02/11/2002/11/2020 CMP, serum or plasm a alk phos 76 U/L (35-10 4) Not Available [facility] (Centralized Electronic Ordering - All Locations) Patient Can Go To The Location Of Their Choice, 02/11/2020 17:07:52 02/11/2002/11/2020 CMP, serum or plasm a ALT 15 U/L (0-33) Not Available [facility] (Centralized Electronic Ordering - All Locations) Patient Can Go To The Location Of Their Choice, 02/11/2020 17:07:52 02/11/2002/11/2020 CMP, serum or plasm a est GFR non 73 mL/mi n/1.7 3_M2 Creat inine based estim ated glome rular filtr ation rate (eGFR ) is calcu lated using the Chron ic Kidne y Disea se Epide miolo gy Colla borat ion (CKD- EPI). The CKD-E PI creat inine equat ion has not been valid ated in child traci (<18 years ), pregn ant women or in some racia l or ethni c subgr oups other than Cauca sians and Afric an Ameri cans. Not Available [facility] (Centralized Electronic Ordering - All Locations) Patient Can Go To The Location Of Their Choice, 02/11/2020 17:07:52 02/11/2002/11/2020 CMP, serum or plasm a est GFR 85 mL/mi n/1.7 3_M2 Creat inine based estim ated glome rular filtr ation rate (eGFR ) is calcu lated using the Chron ic Kidne y Disea se Epide miolo gy Colla borat ion (CKD- EPI). The CKD-E PI creat inine equat ion has not been valid ated in child traci (<18 years ), pregn ant women or in some racia l or ethni c subgr oups other than Cauca sians and Afric an Ameri cans. Not Available [facility] (Centralized Electronic Ordering - All Locations) Patient Can Go To The Location Of Their Choice, 02/11/2020 17:07:52 02/11/2002/11/2020 lipid panel , serum cholesterol, total 223 mg/dL (<200) high Not Available [facility] (Central[facility] Ordering - All Locations) Patient Can Go To The Location Of Their Choice, 02/11/2020 17:07:54 02/11/2002/11/2020 lipid panel , serum triglyceride 96 mg/dL (<150) Not Available [facility] ([facility] Order[facility] - All Locations) Patient Can Go To The Location Of Their Choice, 02/11/2020 17:07:54 02/11/2002/11/2020 lipid panel , serum HDL chol 84 mg/dL (>39) Not Available [facility] (Centralized Electronic Ordering - All Locations) Patient Can Go To The Location Of Their Choice, 02/11/2020 17:07:54 02/11/2002/11/2020 lipid panel , serum LDL cholesterol, calculated 120 mg/dL (0-130 ) Not Available [facility] (Centralized Electronic Ordering - All Locations) Patient Can Go To The Location Of Their Choice, 02/11/2020 17:07:54 02/11/2002/11/2020 lipid panel , serum non HDL cholesterol (calc) 139 mg/dL (<160) Not Available [facility] (Centralized [facility] Ordering - All Locations) Patient Can Go To The Location Of Their Choice, 02/11/2020 17:07:54 04/24/20 18 04/23/2018 XR, chest , 2 view No observ ation record ed. [facility] [address] [place], [address], 05/06/2018 06:21:40 04/24/20 18 04/24/2018 CT, angio gram, chest , w/ contr ast No observ ation record ed. [facility] [address] [place], [address], 05/06/2018 06:21:40 05/08/20 18 05/07/2018 MAMMO , scree jenny, digit al, bilat eral No observ ation record ed. [facility] [address] [address], [place], [address], 05/17/2018 13:10:11 05/30/20 18 05/30/2018 CT, chest , w/ contr ast No observ ation record ed. [facility] [address] [place], [address], 05/31/2018 06:48:02 08/06/[address], chest , w/o contr ast No observ ation record ed. [facility] [address] [place], [address], 08/16/2018 15:49:40 04/17/20 19 elect emma diogr am No observ ation record ed. jannette Not Available 04/02 16:49:28 04/26/20 19 04/26/2019 CT, chest , w/o contr ast No observ ation record ed. [facility] [address] [place], [address], 04/26/2019 13:18:20 05/26/20 19 05/25/2019 MAMMO , scree jenny, digit al, bilat eral PROCED URE: MM Digita l Mammo Screen ing INDICA TION: Screen ing for breast cancer . No known palpab le abnorm alitie s. Benign right excisi onal biopsy in 2007. Mother with breast cancer at age 40, sister with breast cancer at age 66. COMPAR TAMAR: 2017 and multip le prior studie s. TECHNI QUE: Full-f ield digita l CC and MLO 3D tomosy nthesi s images of both breast s were acquir ed. Comput er-aid ed detect ion (CAD) was utiliz ed in the interp retati on of this study. DENSIT Y: The breast tissue contai ns scatte red areas of fibrog landul ar densit y. FINDIN GS: No suspic ious masses , suspic ious microc alcifi cation s, or areas of jovita ectura l distor tion are seen in either breast to sugges t malign angella. Stable nodula r densit ies throug hout both breast s are redemo nstrat ed. IMPRES NAVJOT: No mammog raphic eviden ce of malign angella. RECOMM ENDATI ON: Annual mammog raphic screen ing BI-RAD S: 2 (Benig n) Lay letter mailed to david orr WSN: [id number] Dictat ed By: Aye Coles MD Dictat ed Date/T dre: 10:01 am Review ed By: Aye Coles MD Signed By: Aye Coles MD Signed Date/T dre: 10:01 am Transc ribed By: CSBarbara Transc riptio n Date/T dre: 9:56 am Birads : David orr Class: Outpat ient [email or web address] [facility] (Outpt Imaging) [address] [place], [address], 05/28/2019 09:20:35 12/10/19 20 12/10/2019 CT, chest , w/o contr ast No observ ation record ed. [facility] [address] [place], [address], 12/11/2019 08:55:10 12/25/1912/10/2019 CT, chest , w/o contr ast No observ ation record ed. [facility] [address] [facility], [place], [address], 12/25/2019 09:03:10 Result Notes None recorded. 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 Sofiya navarrete MD [address] [facility] [address], [facility] [place], [address], [facility] 6 10:16:01 Cellulit is and abscess of trunk 284592678 Completed 200901/21/2014 RECORDED 09/22/19 10 10:58AM BY DONITA AREVALO ON/ADDEN DUM Rashawn navarrete MD [address] [facility] [address], [place], [address], [facility] 6 10:16:00 Acute bronchit is 31628332 Completed 200701/21/2014 IMPRESSI ON: 1 MONTH OF COUGH, PT WITH A HX OF BRONCHIE CTASIS AND SPLENECT AMY,WILL TREAT WITH AVELOX, CALL IF COUGH NOT RESOLVED OR DEVELOPS FEVERS OR SOB. PT WILL GET CXR IF NOT BETTER IN 2 WEEKS AND RETURN, CXR PAPER TO PT; RECORDED 05/16/20 08 9:49AM BY BARRETT SY, BINGATI ON/ Rashawn navarrete MD [address] [facility], [facility], [address], [facility] 6 10:16:00 Anxiety state 109546442 Completed 201101/21/2014 RECORDED 02/27/20 12 1:17PM BY MONIQUE THOMAS I, DONITA ON/ Rashawn navarrete MD [address] [facility], [place], [address], [facility] 6 10:16:00 Anxiety state 687728361 Active 2013 Rashawn navarrete MD [address] [facility], [place], [address], [facility] 6 10:16:00 Asthma 905269692 Active [address] Marjan navarrete MD [address] [facility], [place], [address], [facility] 6 10:16:01 Screenin g for malignan t neoplasm of breast Completed 200801/21/2014 RECORDED 03/07/20 09 9:46AM BY RASHAWN GRANADO MD, ANNOTATI ON/ Rashawn navarrete MD [address] [facility] [address], [place], [address], [facility] 6 10:16:01 Acute exacerba tion of bronchie ctasis 813873049 Completed 201201/21/2014 IMPRESSI ON: MINOR SXS WITH CLEAR LUNGS. WILL DO SPUTUM CULTURE TO GUIDE TREATMEN T IF ANY NEEDED. IF SHE GETS WORSE WE CAN DO CXR AND EMPIRIC ABX; RECORDED 05/15/20 13 1:00PM BY DONITA MULLER ON/GENE navarrete MD [address] [facility] [address], [place], [address], [facility] 6 10:16:00 Epiderma l burn of foot 73218405 Completed 200701/21/2014 RECORDED 03/12/20 08 1:26PM BY DONITA BELLAMY ON/GENE navarrete MD [address] [facility], [place], [address], [facility] 6 10:16:01 Screenin g for malignan t neoplasm of cervix Completed 201301/21/2014 RECORDED 10/22/19 14 8:00AM BY DONITA MULLER ON/GENE navarrete MD [address] [facility] [address], [place], [address], [facility] 6 10:16:01 Neck pain 17780296 Completed 201101/21/2014 RECORDED 02/27/20 12 1:18PM BY DONITA MULLER ON/GENE navarrete MD [address] [facility] [address], [place], [address], [facility] 6 10:16:00 Chest pain 96741671 Completed 201101/21/2014 RECORDED 03/30/20 12 10:29AM BY JAYSON GARCIA MA, ANNOTATI ON/GENE navarrete MD [address] [facility] [address], [place], [address], [facility] 6 10:16:01 Concussi on injury of brain 827475757 Completed 201101/21/2014 RECORDED 02/27/20 12 1:18PM BY DONITA MULLER ON/ADDEN DUM Rashawn navarrete MD [address], [facility] [place], [address], [facility] 6 10:16:01 Contnavdeepo kait of finger 47065594 Completed 200701/21/2014 RECORDED 03/12/20 08 1:25PM BY DONITA BELLAMY ON/ADDEN Rashawn navarrete MD [address], [facility] [place], [address], [facility] 6 10:16:01 Cough 07083680 Completed 201101/21/2014 RECORDED 02/27/20 12 1:18PM BY DONITA MULLER ON/ADDEN Rashawn navarrete MD [address] [facility] [address], [facility] [place], [address], [facility] 6 10:16:01 Crohn's disease of large bowel 9489059 Active 2013 Rashawn navarrete MD [address] [facility] [address], [facility] [place], [address], [facility] 6 10:16:00 History of depressi on 804601363 Completed 201304/23/2014 RECORDED 10/22/19 14 10:51AM BY MONIQUE THOMAS I, OFFICE VISIT Rashawn navarrete MD [address] [facility] [address], [facility] [place], [address], [facility] 6 10:16:01 Recurren t major depressi ve episodes 491912931 Active 2013 Rashawn navarrete MD [address], [place], [address], [facility] 6 10:16:00 Dysuria 60028646 Completed 201101/21/2014 RECORDED 02/27/20 12 1:18PM BY DONITA MULLER ON/ADDEN DUM Rashawn navarrete MD [address] [facility] [address], [place], [address], [facility] 6 10:16:01 Ronaldo baker [id number] Completed 201310/30/2014 RECORDED 10/22/19 14 11:49AM BY RASHAWN GRANADO MD, OFFICE VISIT Rashawn navarrete MD [address] [facility] [address], [place], [address], [facility] 6 10:16:00 Malaise and fatigue 832826724 Completed 201201/21/2014 RECORDED 01/15/20 13 9:41AM BY DONITA MULLER ON/ADDEN DUM Rashawn navarrete MD [address] [facility] [address], [place], [address], [facility] 6 10:16:01 Influenz a vaccine needed 89561006765 06 Completed 201101/21/2014 RECORDED 02/27/20 12 1:18PM BY DONITA MULLER ON/CHRISEN TI navarrete MD [address] [facility], [place], [address], [facility] 6 10:16:01 Follow-u p encounte r Completed 201101/21/2014 RECORDED 02/27/20 12 1:18PM BY DONITA MULLER ON/ADDEN TI navarrete MD [address] [facility] [address], [place], [address], [facility] 6 10:16:01 Tobacco user [id number] Completed 201304/23/2014 RECORDED 10/22/19 14 10:59AM BY MONIQUE THOMAS I, OFFICE VISIT Rashawn navarrete MD [address] [facility] [address], [place], [address], [facility] 6 10:16:00 History of clinical finding in subject [id number] Completed 201304/23/2014 RECORDED 10/22/19 14 10:59AM BY MONIQUE THOMAS I, OFFICE VISIT Rashawn navarrete MD [address] [facility], [place], [address], [facility] 6 10:16:01 Gastroes ophageal reflux disease 504305150 Active 2013 Rashawn navarrete MD [address] [facility], [place], [address], [facility] 6 10:16:00 Adult health examinat ion Completed 201201/21/2014 RECORDED 12/28/19 13 11:17AM BY BING MULLERATI ON/ADDEN DUM Rashawn navarrete MD [address] [address], [place], [address], [facility] 6 10:16:01 Adult health examinat ion Completed 201304/23/2014 IMPRESSI ON: SHE HAS SOME FALL RISK BECAUSE OF GAIT PROBLEMS FROM BILATERA L KNEE OA. SHE IS FOLLOWED BY [facility] (DR TATUM) FOR THIS. SHE WAS SEEN BY [facility] AND THE RECOMMEN DATIONS WERE INSTITUT ED FOR DEPRESSI ON/COGNI TIVE ISSUES. SHE IS CURRENTL Y STABLE.; RECORDED 10/22/19 14 12:59PM BY RASHAWN GRANADO MD, OFFICE VISIT Rashawn navarrete MD [address] [facility], [place], [address], [facility] 6 10:16:01 Psychoge juancho headache 35629699 Completed 200901/21/2014 RECORDED 09/22/19 10 10:58AM BY BING AREVALOATI ON/ADDHUY navarrete MD [address], [place], [address], [facility] 6 10:16:00 Blood in urine 36263214 Completed 201101/21/2014 RECORDED 02/27/20 12 1:18PM BY DONITA MULLER ON/GENE navarrete MD [address], [place], [address], [facility] 6 10:16:00 Ileostom y present [id number] Completed 201301/21/2014 RECORDED 09/10/19 14 1:43PM BY DONITA MULLER ON/GENE navarrete MD [address], [place], [address], [facility] 6 10:16:01 Pure hypercho lesterol emia 951011322 Completed 201311/07/2016 Rashawn navarrete MD [address], [place], [address], [facility] 7 19:45:09 Lateral epicondy litis 195040233 Completed 201201/21/2014 IMPRESSI ON: SHE WILL RESTART NAPROSYN , RESTART EXERCISE S AND CALL [facility] FOR AN APPT.; RECORDED 05/03/20 13 2:17PM BY JAYSON GARCIA MA, ANNOTATI ON/GENE navarrete MD [address], [place], [address], [facility] 6 10:16:00 Amnesia [id number] Completed 201301/21/2014 STORY: HAD AN EVAL AT [facility] TO BE SECONDAR Y TO MENTAL HEALTH ISSUES.; RECORDED 09/10/19 14 1:44PM BY DONITA MULLER/ADDEN DUM Rashawn navarrete MD [address] [facility] [address], [place], [address], [facility] 6 10:16:01 Migraine [id number] Completed 201101/21/2014 RECORDED 02/27/20 12 1:18PM BY DONITA MULLER ON/ADD DUM Rashawn navarrete MD [address] [facility] [address], [place], [address], [facility] 6 10:16:00 Migraine [id number] Active 2013 Rashawn navarrete MD [address] [facility] [address], [place], [address], [facility] 6 10:16:00 Disorder of upper respirat ory system [id number] Completed 201301/21/2014 IMPRESSI ON: POSSIBLE ALLERGIE S; NO SINUSITI S AND NO ROLE FOR ABX.; RECORDED 10/22/19 14 7:59AM BY MONIQUE THOMAS I, DONITA ON/ADD DUM Rashawn navarrete MD [address] [facility] [address], [place], [address], [facility] 6 10:16:01 Active or passive immuniza tion Completed 201201/21/2014 RECORDED 05/03/20 13 2:17PM BY JAYSON GARCIA MA, DONITA ON/ DUM Rashawn navarrete MD [address] [facility] [address], [place], [address], [facility] 6 10:16:01 Osteoart hritis [id number] Active 2013 BILATERA L KNEES AND LUMBAR; RECORDED 10/22/19 14 10:47AM BY MONIQUE THOMAS I, OFFICE VISIT Rashawn navarrete MD [address] [facility] [address], [place], [address], [facility] 6 10:16:00 Disorder of bone and articula r cartilag e 547930400 Completed 201304/23/2014 RECORDED 10/22/19 14 10:47AM BY MONIQUE THOMAS I, OFFICE VISIT Rashawn navarrete MD [address] [facility] [address], [place], [address], [facility] 6 10:16:00 Shoulder joint pain 267750921 Completed 201201/21/2014 IMPRESSI ON: SHE WILL RESTART NAPROSYN , RESTART EXERCISE S AND CALL [facility] FOR AN APPT.; RECORDED 05/03/20 13 2:17PM BY JAYSON GARCIA MA, DONITA ON/GENE navarrete MD [address] [facility] [address], [place], [address], [facility] 6 10:16:00 Cellulit is of digit 52476616 Completed 201101/21/2014 RECORDED 02/27/20 12 1:18PM BY DONITA MULLER ON/GENE navarrete MD [address] [facility] [address], [place], [address], [facility] 6 10:16:00 Posterio r rhinorrh ea [id number] Completed 201101/21/2014 IMPRESSI ON: PT WITH INCREASE D MUCOSAL SECRETIO NS, POSSIBLY SECONDAR Y TO SEASONAL ALLERGIE S. NO EVIDENCE OF ESOPHAGE AL MOTILITY OR SUPERINTENDENT CONSTRUCTION AL ISSUES AT THIS TIME. ENCOURAG ED DAILY OTC ALLERGY MED WITH DECONGES TANT, TRIAL OF NASAL STEROID. F/U PRN IF SXS WORSEN OR FAIL TO IMPROVE. ; RECORDED 02/27/20 12 1:18PM BY DONITA MULLER ON/GENE navarrete MD [address] [facility] [address], [place], [address], [facility] 6 10:16:00 History of psychiat annabel disorder 431776075 Completed 201304/23/2014 RECORDED 10/22/19 14 10:51AM BY MONIQUE THOMAS I, OFFICE VISIT Rashawn navarrete MD [address] [facility] [address], [place], [address], [facility] 6 10:16:01 Eruption [id number] Completed 201101/21/2014 RECORDED 02/27/20 12 1:18PM BY DONITA MULLER ON/ADDEN DUM Rashawn navarrete MD [address] [facility] [address], [place], [address], [facility] 6 10:16:01 Otalgia 67848632 Completed 201201/21/2014 IMPRESSI ON: NORMAL EXAM, THERE IS NO APPRECIA BLE SWELLING , LYMPHADE NOPATHY OR RASH, SUSPECT THIS IS MUSCULAR AND WOULD LIKE HER TO CONTINUE THE FLEXERIL AND HEATING PAD. I WILL REQUEST THE RECORDS FROM HER RECENT PULM EVAL FROM [facility](NOT IN CHART TODAY).; RECORDED 10/19/19 13 2:33PM BY JOSE COLLADO MA, ANNOTATI ON/GENE navarrete MD [address] [facility] [address], [place], [address], [facility] 6 10:16:00 Knee pain Completed 201101/21/2014 RECORDED 02/27/20 12 1:18PM BY DONITA MULLER ON/GENE navarrete MD [address] [facility] [address], [place], [address], [facility] 6 10:16:00 Epidermo id cyst of skin 539099475 Completed 200701/21/2014 RECORDED 03/12/20 08 1:26PM BY DONITA BELLAMY ON/GENE navarrete MD [address] [facility] [address], [place], [address], [facility] 6 10:16:00 Complica tion [id number] Completed 201101/21/2014 RECORDED 02/27/20 12 1:18PM BY DONITA MULLER ON/GENE navarrete MD [address] [facility] [address], [place], [address], [facility] 6 10:16:01 Contusio n of toe 12073393 Completed 201101/21/2014 RECORDED 02/27/20 12 1:18PM BY DONITA MULLER ON/GENE navarrete MD [address] [facility] [address], [place], [address], [facility] 6 10:16:01 Urinary tract infectio us disease 48500660 Completed 201101/21/2014 RECORDED 02/27/20 12 1:18PM BY DONITA MULLER ON/GENE navarrete MD [address] [facility] [address], [place], [address], [facility] 6 10:16:00 Dizzines s and giddines s 941969660 Completed 201101/21/2014 IMPRESSI ON: THIS SOUNDS LIKE CHRONIC VERTIGO BUT WILL GET AN IMAGING STUDY TO R/O A CENTRAL ETIOLOGY FOR HER SX.; RECORDED 02/27/20 12 1:18PM BY DONITA MULLER ON/GENE navarrete MD [address] [facility] [address], [place], [address], [facility] 6 10:16:01 Pain of joint of wrist 142105649 Completed 04/23/2014 Rashawn navarrete MD [address] [facility] [address], [place], [address], [facility] 6 10:16:00 Osteoart hrosis of the carpomet acarpal joint of the thumb 94773210 Active She had surgery on the right side and is getting injectio ns on the left and may opt for surgery in 2018. Rashawn navarrete MD [address] [facility] [address], [place], [address], [facility] 7 08:35:27 Cellulit is and abscess of trunk 734440871 Completed 200902/10/2014 RECORDED 09/22/19 10 10:58AM BY DONITA AREVALO ON/ADD DUM Rashawn navarrete MD [address] [facility] [address], [place], [address], [facility] 6 10:16:00 Acute bronchit is 79691059 Completed 200702/10/2014 IMPRESSI ON: 1 MONTH OF COUGH, PT WITH A HX OF BRONCHIE CTASIS AND SPLENECT AMY,WILL TREAT WITH AVELOX, CALL IF COUGH NOT RESOLVED OR DEVELOPS FEVERS OR SOB. PT WILL GET CXR IF NOT BETTER IN 2 WEEKS AND RETURN, CXR PAPER TO PT; RECORDED 05/16/20 08 9:49AM BY DONITA HIGHTOWER ON/ DUM Rashawn navarrete MD [address] [facility] [address], [place], [address], [facility] 6 10:16:00 Anxiety state 596996392 Completed 201102/10/2014 RECORDED 02/27/20 12 1:17PM BY DONITA MULLER ON/ DUM Rashawn navarrete MD [address] [facility] [address], [place], [address], [facility] 6 10:16:00 Screenin g for malignan t neoplasm of breast Completed 200802/10/2014 RECORDED 03/07/20 09 9:46AM BY RASHAWN GRANADO MD, DONITA ON/GENE navarrete MD [address], [place], [address], [facility] 6 10:16:01 Acute exacerba tion of bronchie ctasis 165580852 Completed 201202/10/2014 IMPRESSI ON: MINOR SXS WITH CLEAR LUNGS. WILL DO SPUTUM CULTURE TO GUIDE TREATMEN T IF ANY NEEDED. IF SHE GETS WORSE WE CAN DO CXR AND EMPIRIC ABX; RECORDED 05/15/20 13 1:00PM BY DONITA MULLER ON/GENE navarrete MD [address], [place], [address], [facility] 6 10:16:00 Epiderma l burn of foot 63743644 Completed 200702/10/2014 RECORDED 03/12/20 08 1:26PM BY DONITA BELLAMY ON/GENE navarrete MD [address], [place], [address], [facility] 6 10:16:01 Screenin g for malignan t neoplasm of cervix Completed 201302/10/2014 RECORDED 10/22/19 14 8:00AM BY DONITA MULLER/GENE navarrete MD [address], [place], [address], [facility] 6 10:16:01 Neck pain 69058461 Completed 201102/10/2014 RECORDED 02/27/20 12 1:18PM BY DONITA MULLER/GENE navarrete MD [address], [place], [address], [facility] 6 10:16:00 Chest pain 56167575 Completed 201102/10/2014 RECORDED 03/30/20 12 10:29AM BY JAYSON GARCIA MA, DONITA ON/GENE navarrete MD [address], [place], [address], [facility] 6 10:16:01 Concussi on injury of brain 128404230 Completed 201102/10/2014 RECORDED 02/27/20 12 1:18PM BY DONITA MULLER ON/GENE navarrete MD [address] [facility] [address], [place], [address], [facility] 6 10:16:01 Contusio n of finger 57411447 Completed 200702/10/2014 RECORDED 03/12/20 08 1:25PM BY DONITA BELLAMY ON/GENE navarrete MD [address], [place], [address], [facility] 6 10:16:01 Cough 81567294 Completed 201102/10/2014 RECORDED 02/27/20 12 1:18PM BY DONITA MULLER ON/GENE navarrete MD [address] [facility] [address], [place], [address], [facility] 6 10:16:01 Dysuria [id number] Completed 201102/10/2014 RECORDED 02/27/20 12 1:18PM BY DONITA MULLER ON/GENE navarrete MD [address], [place], [address], [facility] 6 10:16:01 Malaise and fatigue 722965513 Completed 201202/10/2014 RECORDED 01/15/20 13 9:41AM BY DONITA MULLER ON/GENE navarrete MD [address] [facility] [address], [place], [address], [facility] 6 10:16:01 Influenz a vaccine needed [id number] 06 Completed 201102/10/2014 RECORDED 02/27/20 12 1:18PM BY DONITA MULLER ON/GENE navarrete MD [address] [facility] [address], [place], [address], [facility] 6 10:16:01 Follow-u p encounte r Completed 201102/10/2014 RECORDED 02/27/20 12 1:18PM BY DONITA MULLER ON/GENE navarrete MD [address] [facility] [address], [place], [address], [facility] 6 10:16:01 Adult health examinat ion Completed 201202/10/2014 RECORDED 12/28/19 13 11:17AM BY DONITA MULLER/GENE navarrete MD [address] [facility] [address], [place], [address], [facility] 6 10:16:01 Psychoge juancho headache 68859520 Completed 200902/10/2014 RECORDED 09/22/19 10 10:58AM BY DONITA AREVALO ON/GENE navarrete MD [address] [facility] [address], [place], [address], [facility] 6 10:16:00 Blood in urine 47345011 Completed 201102/10/2014 RECORDED 02/27/20 12 1:18PM BY DONITA MULLER/GENE navarrete MD [address] [facility] [address], [place], [address], [facility] 6 10:16:00 Ileostom y present 869010860 Completed 201302/10/2014 RECORDED 09/10/19 14 1:43PM BY DONITA MULLER ON/GENE navarrete MD [address] [facility] [address], [place], [address], [facility] 6 10:16:01 Lateral epicondy litis 021849701 Completed 201202/10/2014 IMPRESSI ON: SHE WILL RESTART NAPROSYN , RESTART EXERCISE S AND CALL [facility] FOR AN APPT.; RECORDED 05/03/20 13 2:17PM BY JAYSON GARCIA MA, ANNOTATI ON/GENE navarrete MD [address] [facility] [address], [place], [address], [facility] 6 10:16:00 Amnesia [id number] Completed 201302/10/2014 STORY: HAD AN EVAL AT [facility] AND FELT TO BE SECONDAR Y TO MENTAL HEALTH ISSUES.; RECORDED 09/10/19 14 1:44PM BY DONITA MULLER ON/GENE navarrete MD [address] [facility] [address], [place], [address], [facility] 6 10:16:01 Migraine 12212030 Completed 201102/10/2014 RECORDED 02/27/20 12 1:18PM BY DONITA MULLER/GENE navarrete MD [address] [facility] [address], [place], [address], [facility] 6 10:16:00 Disorder of upper respirat ory system 381384351 Completed 201302/10/2014 IMPRESSI ON: POSSIBLE ALLERGIE S; NO SINUSITI S AND NO ROLE FOR ABX.; RECORDED 10/22/19 14 7:59AM BY DONITA MULLER ON/GENE navarrete MD [address] [facility] [address], [place], [address], [facility] 6 10:16:01 Active or passive immuniza tion Completed 201202/10/2014 RECORDED 05/03/20 13 2:17PM BY JAYSON GARCIA MA, DONITA ON/GENE navarrete MD [address] [facility] [address], [place], [address], [facility] 6 10:16:01 Shoulder joint pain 952073572 Completed 201202/10/2014 IMPRESSI ON: SHE WILL RESTART NAPROSYN , RESTART EXERCISE S AND CALL [facility] FOR AN APPT.; RECORDED 05/03/20 13 2:17PM BY JAYSON GARCIA MA, DONITA ON/GENE navarrete MD [address] [facility] [address], [place], [address], [facility] 6 10:16:00 Cellulit is of digit 06450778 Completed 201102/10/2014 RECORDED 02/27/20 12 1:18PM BY DONITA MULLER ON/GENE navarrete MD [address] [facility] [address], [place], [address], [facility] 6 10:16:00 Posterio r rhinorrh ea 57595325 Completed 201102/10/2014 IMPRESSI ON: PT WITH INCREASE D MUCOSAL SECRETIO NS, POSSIBLY SECONDAR Y TO SEASONAL ALLERGIE S. NO EVIDENCE OF ESOPHAGE AL MOTILITY OR SUPERINTENDENT CONSTRUCTION AL ISSUES AT THIS TIME. ENCOURAG ED DAILY OTC ALLERGY MED WITH DECONGES TANT, TRIAL OF NASAL STEROID. F/U PRN IF SXS WORSEN OR FAIL TO IMPROVE. 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 I WILL REQUEST THE RECORDS FROM HER RECENT PULM EVAL FROM [facility](NOT IN CHART TODAY).; RECORDED 10/19/19 13 2:33PM BY JOSE COLLADO MA, ANNOTATI ON/GENE navarrete MD [address] [facility] [address], [place], [address], [facility] 6 10:16:00 Knee pain Completed 201102/10/2014 RECORDED 02/27/20 12 1:18PM BY DONITA MULLER/GENE navarrete MD [address] [facility] [address], [place], [address], [facility] 6 10:16:00 Epidermo id cyst of skin 625120007 Completed 200702/10/2014 RECORDED 03/12/20 08 1:26PM BY DONITA BELLAMY/GENE navarrete MD [address] [facility] [address], [place], [address], [facility] 6 10:16:00 Complica tion 596521426 Completed 201102/10/2014 RECORDED 02/27/20 12 1:18PM BY DONITA MULLER ON/GENE navarrete MD [address] [facility] [address], [place], [address], [facility] 6 10:16:01 Contusio n of toe 51550675 Completed 201102/10/2014 RECORDED 02/27/20 12 1:18PM BY DONITA MULLER ON/GENE navarrete MD [address] [facility] [address], [place], [address], [facility] 6 10:16:01 Urinary tract infectio us disease 93890676 Completed 201102/10/2014 RECORDED 02/27/20 12 1:18PM BY DONITA MULLER ON/GENE navarrete MD [address] [facility] [address], [place], [address], [facility] 6 10:16:00 Dizzines s and giddines s 179823161 Completed 201102/10/2014 IMPRESSI ON: THIS SOUNDS LIKE CHRONIC VERTIGO BUT WILL GET AN IMAGING STUDY TO R/O A CENTRAL ETIOLOGY FOR HER SX.; RECORDED 02/27/20 12 1:18PM BY DONITA MULLER ON/GENE navarrete MD [address] [facility] [address], [place], [address], [facility] 6 10:16:01 Thoracic back pain 833688496 Active Rashawn navarrete MD [address] [facility] [address], [place], [address], [facility] 6 10:16:00 Degenera tion of lumbar interver tebral disc 76879599 Active 2013 Rashawn navarrete MD [address] [facility] [address], [place], [address], [facility] 6 10:16:00 Palpitat ions 46351200 Active Rashawn navarrete MD [address] [facility] [address], [place], [address], [facility] 6 10:16:01 Bilatera l hearing loss 03200274 Active Rashawn navarrete MD [address] [facility] [address], [place], [address], [facility] 6 10:16:00 Low back pain 728223581 Active Rashawn navarrete MD [address] [facility] [address], [place], [address], [facility] 6 10:16:00 Disorder of breast 60416166 Active Rashawn navarrete MD [address] [facility] [address], [place], [address], [facility] 6 10:16:00 Metatars algia 33118154 Active right toes secondar y to prior fracture raphael blackburn [place] null, [facility] 6 14:55:01 Wound of skin 850833674 Active Rashawn navarrete MD [address] [facility] [address], [place], [address], [facility] 6 10:16:00 Advance directiv e discusse d with patient 288969044 Active Rashawn navarrete MD [address] [facility] [address], [place], [address], [facility] 6 10:16:00 Rib pain 818830172 Active Rashawn navarrete MD [address] [facility] [address], [place], [address], [facility] 6 17:31:59 Hyperlip idemia 84475467 Active 2016 Rashawn navarrete MD [address], [place], [address], [facility] 7 19:45:34 Colostom y present 457840028 Active 2016 Rashawn navarrete MD [address] [facility] [address], [place], [address], [facility] 7 19:49:23 Osteoart hritis of knee 049242315 Active 2016 Seen at [facility]. Also followed by rheum. Consider ing knee replacem ent. Rashawn navarrete MD [address] [facility] [address], [place], 9, [facility] 8 06:51:02 Osteopen ia 395422027 Active 2017 Recommen d calcium with vitamin D. Rashawn navarrete MD [address] [facility] [address], [place], 9, [facility] 8 17:13:53 Pain of right shoulder joint [id number] 608589 Active 2017 Seen at [facility]; underlyi ng cervical radiculo chris. 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, [address], [facility] 0 12:09:35 Problem Notes None recorded. Procedures Surgical History Date Name Laterality Status Provider Name and Address Organization Details Recorded Time 02/03/20 20 [facility] 11:07:14 06/14/20 19 bronchoscopy completed [facility] 06/14/2019 16:05:39 05/26/20 19 Most Recent Mammogram completed [facility] 05/28/2019 09:20:25 05/26/20 19 Mammogram Diagnostic Bilateral completed [facility] 05/28/2019 09:17:52 12/04/19 19 Mini-Cog Test completed Monique Mckeon [facility] 12/03/2018 13:07:21 11/09/19 18 Mini-Cog Test completed Monique Mckeon [facility] 11/08/2017 13:18:44 11/08/19 17 Fall Risk Assessment completed Monique Mckeon [facility] 11/07/2016 11:21:17 11/08/19 17 Mini-Cog Test completed Monique Mckeon [facility] 11/07/2016 11:21:28 11/02/19 16 Fall Risk Assessment completed Monique Mckeon [facility] 11/02/2015 11:07:31 11/02/19 16 Mini-Cog Test completed Monique Mckeon [facility] 11/02/2015 11:07:31 11/02/19 16 Advanced Care Planning completed Monique Mckeon [facility] 11/02/2015 10:59:29 10/21/19 16 Date of Last Pap Smear completed Raghu Judge [facility] 10/26/2015 11:38:19 10/31/19 15 Fall Risk Assessment completed Monique Mckeon [facility] 10/30/2014 09:40:35 10/31/19 15 Mini-Cog Test completed Monique Mckeon [facility] 10/30/2014 09:40:35 09/19/19 15 Other completed Rashawn Buitrago MD [address], [address], [facility] 06/10/2017 08:33:16 07/03/18 85 Splenectomy completed Rashawn Buitrago MD [address], [address], [facility] 10/30/2014 10:06:07 07/03/18 85 Other completed Rashawn Buitrago MD [address], [address], [facility] 10/30/2014 10:06:07 Other completed MEREDITH Sampson [address], [address], [facility] 03/06/2014 14:01:29 Imaging Results None recorded. Procedure Notes None recorded. Medical Equipment None Reported. Allergies Allergen ID Allergen Name Allergen Category Reaction Reaction Severity Criticality Documentation Date Start Date Code Code System Note Provider Name and Address Organization Details Recorded Time 99422 No known allergy (situatio n) Not available Not available Not available Not available 01/14/20142013 96484 6003 SNOMED Alpesh Mann blackburn BARRETT [facility], [facility] 6 14:54:25 82345 adhesive tape environme nt,medica tion rash Not available Not available 05/02/2018 80221 ELMA Greer [facility] 8 09:16:32 Medications Name Sig Start Date Stop Date Status Note LastModified by Organization Details LastModified Time celecoxib 200 mg capsule 12/03 completed Not Available Not Available Not Available cyclobenz aprine 10 mg tablet AT BEDTIME 11/24 completed RECORDED 11/25/19 12 10:43AM BY RAGHU JUDGE, ANNOTATI ON/GENE LUKE; Not Available Not Available Not Available azithromy az 250 mg capsule DIRECTED 04/27 completed RECORDED 06/03/20 09 1:58PM BY WILLARD JOHNSON, [facility], MEDICATI ON AUTO-CHRIS CTIVATIO N;TWO TABS DAY ONE, FOLLOWED BY ONE TAB DAILY DAYS 2-5 Not Available Not Available Not Available silver sulfadiaz ine 1 % topical cream APPLY BID WITH THICK COVERING 05/05 completed RECORDED 05/07/20 07 9:15AM BY RASHAWN GRANADO MD, MEDICATI ON AUTO-CHRIS CTIVATIO N; Not Available Not Available Not Available albuterol sulfate 0.63 mg/3 mL solution for nebulizat ion Inhale 1 mL every day by inhalati on route as needed. active Not Available Not Available No t Available venlafaxi ne ER 37.5 mg capsule,e xtended release 24 hr Take 1 capsule every day by oral route for 30 days. 05/04 completed Not Available Not Available Not Available prednison e 10 mg tablet 03/03 completed Not Available Not Available Not Available venlafaxi ne ER 75 mg capsule,e xtended release 24 hr DAILY 04/17 completed Not Available Not Available Not Available tizanidin e 2 mg tablet TAKE 1 TABLET BY MOUTH EVERY 8 HOURS FOR 10 DAYS active Not Available Not Available No t Available azithromy az 250 mg tablet TAKE 2 TABLETS (500 MG) BY ORAL ROUTE ONCE DAILY FOR 1 DAY THEN 1 TABLET (250 MG) BY ORAL ROUTE ONCE DAILY FOR 4 DAYS 03/03 completed Not Available Not Available Not Available ibuprofen 800 mg tablet active Not Available Not Available Not Available sumatript an 100 mg tablet NEEDED TO TREAT A MIGRAINE MAY REPEAT AFTER 2 HRS 06/15 completed RECORDED 06/15/20 12 10:43AM BY DONITA POND ON/ADDEN DUM; Not Available Not Available Not Available meloxicam 15 mg tablet Take 1 tablet every day by oral route for 30 days. 05/09 completed Not Available Not Available Not Available phenazopy ridine 200 mg tablet THREE TIMES DAILY 06/15 completed RECORDED 06/15/20 10 1:51PM BY CINDY GAN MD, MEDICATI ON AUTO-CHRIS CTIVATIO N; Not Available Not Available Not Available ostomy supplies paste NEEDED 10/20 completed RECORDED 10/21/19 09 2:34PM BY DONITA POND ON/ADDEN DUM;THIS ORDER DISCONTI NUED PER MEDI-SPA N. Not Available Not Available Not Available moxifloxa az 400 mg tablet DAILY 05/26 completed RECORDED 06/06/20 08 9:32AM BY QUEENIE Navarrete MD, MEDICATI ON AUTO-CHRIS CTIVATIO N; Not Available Not Available Not Available venlafaxi ne ER 150 mg capsule,e xtended release 24 hr Take 1 capsule every day by oral route for 30 days. active Not Available Not Available No t Available Advair Diskus 100 mcg-50 mcg/dose powder for inhalatio n EVERY 12 HOURS 01/02 completed RECORDED 01/03/20 10 9:56AM BY ALPESH RODRIGUEZ MA, OFFICE VISIT; Not Available Not Available Not Available metronida zole 500 mg tablet Take 1 tablet 3 times a day by oral route as directed for 7 days. 05/09 completed Not Available Not Available Not Available fluocinon bernardino 0.05 % topical ointment 05/04 completed Not Available Not Available Not Available ciproflox acin 500 mg tablet TWO TIMES DAILY 05/26 completed RECORDED 05/27/20 13 10:52AM BY RASHAWN GRANADO MD, MEDICATI ON AUTO-CHRIS CTIVATIO N; Not Available Not Available Not Available risperido ne 2 mg tablet QD 2007 active RECORDED 03/12/20 08 2:14PM BY RASHAWN GRANADO MD, ANNOTREMBERTO ON/ADDEN DUM; Not Available Not Available Not Available meloxicam 7.5 mg tablet DAILY active RECORDED 06/24/20 11 3:05PM BY RASHAWN GRANADO MD, ANNOTATI ON/ADDEN DUM; Not Available Not Available Not Available oxycodone -acetamin ophen 5 mg-325 mg tablet Q 4HR/PRN active Not Available Not Available No t Available rifampin 300 mg capsule Take 1 capsule 3 times a week by oral route for 30 days. active Not Available Not Available No t Available calcium 600 mg (as calcium carbonate 1,500 mg) tablet DAILY active RECORDED 10/22/19 14 10:48AM BY MONIQUE THOMAS I, OFFICE VISIT; Not Available Not Available Not Available Fluticaso ne Propionat e (Inhal) 50 mcg/BLIST inhl powd DAILY, TO EACH NOSTRIL 2013 active RECORDED 09/10/19 14 2:37PM BY RASHAWN GRANADO MD, OFFICE VISIT; Not Available Not Available Not Available citalopra m 20 mg tablet DAILY 07/05 completed RECORDED 07/05/19 12 6:07PM BY RASHAWN GRANADO MD, DONITA ON/ADDEN DUM; Not Available Not Available Not Available amitripty line 25 mg tablet Take 1 tablet every day by oral route at bedtime for 30 days. 12/03 completed Not Available Not Available Not Available lorazepam 0.5 mg tablet Take 1 tablet every day by oral route as directed for 30 days. 05/09 completed Not Available Not Available Not Available amitripty line 10 mg tablet Take 1 tablet every day by oral route at bedtime for 30 days. 12/03 completed Not Available Not Available Not Available cephalexi n 500 mg capsule FOUR TIMES DAILY 2010 active RECORDED 06/24/20 11 3:06PM BY RASHAWN GRANADO MD, ANNOTATI ON/ADDEN DUM;X7 DAYS Not Available Not Available Not Available pantopraz ole 40 mg tablet,de layed release TAKE 1 TABLET BY MOUTH TWICE A DAY active Not Available Not Available No t Available Antivert 25 mg tablet DAILY NEEDED FOR VERTIGO 01/21 completed RECORDED 01/25/20 12 2:11PM BY RASHAWN GRANADO MD, MEDICATI ON AUTO-CHRIS CTIVATIO N; Not Available Not Available Not Available Advair Diskus 250 mcg-50 mcg/dose powder for inhalatio n active Not Available Not Available Not Available gabapenti n 300 mg capsule Take 1 capsule every day by oral route for 30 days. active Not Available Not Available No t Available omeprazol e 20 mg capsule,d elayed release Take 1 capsule every day by oral route for 30 days. 11/07 completed Not Available Not Available Not Available cephalexi n 500 mg tablet TWO TIMES DAILY 04/08 completed RECORDED 04/12/20 11 9:15AM BY IRMA ENCARNACION PA-C, MEDICATI ON AUTO-CHRIS CTIVATIO N; Not Available Not Available Not Available ibuprofen 600 mg tablet Take 1 tablet 3 times a day by oral route with meals for 14 days. active Not Available Not Available No t Available levofloxa az 750 mg tablet 05/17 completed Not Available Not Available Not Available celecoxib 100 mg capsule Take 1 capsule every day by oral route as directed for 30 days. 05/09 completed Not Available Not Available Not Available fluticaso ne propionat e 50 mcg/actua tion nasal spray,melissa pension USE 2 SPRAYS IN EACH NOSTRIL DAILY 02/02 completed Not Available Not Available Not Available aspirin-a cetaminop hen-caffe ine 250 mg-250 mg-65 mg tablet EVERY 6 HOURS NEEDED FOR PAIN 03/30 completed RECORDED 03/30/20 12 10:34AM BY JAYSON GARCIA MA, OFFICE VISIT; Not Available Not Available Not Available loratadin e 10 mg tablet TAKE 1 TABLET BY MOUTH DAILY 05/02 completed Not Available Not Available Not Available nabumeton e 500 mg tablet Take 2 tablets twice a day by oral route for 30 days. 12/03 completed Not Available Not Available Not Available Ventolin HFA 90 mcg/actua tion aerosol inhaler Inhale 2 puffs every day by inhalati on route for 30 days. active Not Available Not Available No t Available tobramyci n 0.3 %-dexamet hasone 0.1 % eye drops,melissa pension active Not Available Not Available Not Available oxycodone 5 mg tablet 04/17 completed Not Available Not Available Not Available albuterol (refill) 90 mcg/actua tion aerosol inhaler NEEDED active RECORDED 10/22/19 14 10:48AM BY MONIQUE THOMAS I, OFFICE VISIT; Not Available Not Available Not Available azithromy az 500 mg tablet TAKE ONE TABLET BY MOUTH THREE TIMES WEEKLY active Not Available Not Available No t Available codeine-g uaifenesi n oral syrup Q 8HRS PRN COUGH 10/23 completed RECORDED 10/24/19 10 3:07PM BY DONITA POND ON/ADDEN DUM; Not Available Not Available Not Available Stomahesi ve misc MONTHLY 09/09 completed RECORDED 09/10/19 14 11:22AM BY DONITA POND ON/ADDEN DUM;DX: ILEOSTOM Y D/T CROHN'S DISEASE (555.1) Not Available Not Available Not Available Spiriva with HandiHale r 18 mcg and inhalatio n capsules TWO TIMES DAILY active Not Available Not Available No t Available Vicodin EVERY FOUR HOURS, NEEDED 2010 active RECORDED 06/24/20 11 3:06PM BY RASHAWN GRANADO MD, DONITA ON/ADDEN DUM;X 3 DAYS Not Available Not Available Not Available omeprazol e DAILY active RECORDED 10/22/19 14 10:48AM BY MONIQUE THOMAS I, OFFICE VISIT; Not Available Not Available Not Available naproxen sodium DAILY active RECORDED 10/22/19 14 10:48AM BY MONIQUE THOMAS I, OFFICE VISIT; Not Available Not Available Not Available Ocuvite 1 tablet daily by mouth 02/02 completed Not Available Not Available Not Available Castro Garcia Skin Barrier A MONTH FOR 1 YEAR 08/01 completed RECORDED 08/01/19 12 11:50AM BY DONITA POND ON/ADDEN DUM;DX: ILEOSTOM Y Not Available Not Available Not Available Colostomy Pouch MONTHLY 09/09 completed RECORDED 09/10/19 14 11:22AM BY RAGHU JUDGE ANNOTREMBERTO ON/ADDEN DUM;DX: ILEOSTOM Y D/T CROHN'S DIS (555.1) Not Available Not Available Not Available cholecalc iferol (vitamin D3) 25 mcg (1,000 unit) tablet Take 1 tablet every day by oral route. active Not Available Not Available No t Available Breo Ellipta 100 mcg-25 mcg/dose powder for inhalatio n Inhale 1 inhalati on every day by inhalati on route for 90 days. 05/09 completed Not Available Not Available Not Available Durga Cohesive UUD 09/22 completed RECORDED 12/16/19 07 2:48PM BY LUIS FERNANDO WINSTON MD, MEDICATI ON AUTO-CHRIS CTIVATIO N; Not Available Not Available Not Available Breo Ellipta 200 mcg-25 mcg/dose powder for inhalatio n Inhale 1 puff every day by inhalati on route for 30 days. 12/03 completed Not Available Not Available Not Available Vitals Date Recorded Body height Body mass index (BMI) Body weight Heart rate Oxygen saturation Oxygen saturation in Arterial blood by Pulse oximetry Body temperature Systolic blood pressure Diastolic blood pressure Provider Name and Address Organization Details Last Updated DateTime 9 167.64 cm 28.6 kg/m2 65343.8 5 g 82 /min 98 % 98 % 97.7 [degF] 118 mm[Hg] 64 mm[Hg] Monique Mckeon [facility] 9 13:15:42 Date Recorded Body height Provider Name an d Address Organization Details Last Updated DateTime 02/03/2020 167.64 cm Monique Mckeon [facility] 02/03/2020 11:01:16 Date Recorded Body height Body mass index (BMI) Body weight Heart rate Oxygen saturation Oxygen saturation in Arterial blood by Pulse oximetry Body temperature Systolic blood pressure Diastolic blood pressure Provider Name and Address Organization Details Last Updated DateTime 9 167.64 cm 28.2 kg/m2 74026.6 6 g 82 /min 98 % 98 % 98.7 [degF] 94 mm[Hg] 58 mm[Hg] Monique Mckeon [facility] 9 16:04:49 Date Recorded Body height Body mass index (BMI) Body weight Body temperature Heart rate Oxygen saturation Oxygen saturation in Arterial blood by Pulse oximetry Systolic blood pressure Diastolic blood pressure Provider Name and Address Organization Details Last Updated DateTime 8 167.64 cm 28.6 kg/m2 72432.8 5 g 97.9 [degF] 102 /min 94 % 94 % 108 mm[Hg] 68 mm[Hg] Jordana Rosasluz [facility] 8 09:15:40 Date Recorded Body height Body mass index (BMI) Body weight Heart rate Oxygen saturation Oxygen saturation in Arterial blood by Pulse oximetry Body temperature Systolic blood pressure Diastolic blood pressure Provider Name and Address Organization Details Last Updated DateTime 8 167.64 cm 28.2 kg/m2 02596.6 6 g 98 /min 96 % 96 % 97.8 [degF] 122 mm[Hg] 68 mm[Hg] Monique Mckeon [facility] 8 12:56:31 Social History Question Answer Notes LastModified by Organizat ion Details LastModified Time Tobacco Smoking Status Former Smoker Not Available [facility] 05/05/2020 03:36:38 Do You Have An Advance Directive? Yes [id number] Information not available 05/05/2020 Is Blood Transfusion Acceptable In An Emergency? Yes [id number] Information not available 05/05/2020 What Is Your Level Of Caffeine Consumption? Occasional [id number] Information not available 05/05/2020 How Much Tobacco Do You Chew? None [id number] Information not available 05/05/2020 In The 14 Days Before Symptom Onset, Have You Had Close Contact With A Laboratory-confi rmed COVID-19 While That Case Was Ill? No [id number] Information not available 05/05/2020 In The 14 Days Before Symptom Onset, Have You Had Close Contact With A Person Who Is Under Investigation For COVID-19 While That Person Was Ill? No [id number] Information not available 05/05/2020 Have You Been To An Area Known To Be High Risk For COVID-19? No [id number] Information not available 05/05/2020 Are You Deaf Or Do You Have Serious Difficulty Hearing? Yes [id number] Information not available 05/05/2020 What Type Of Diet Are You Following? REGULAR [id number] Information not available 05/05/2020 Which Illicit Or Recreational Drugs Have You Used? None [id number] Information not available 05/05/2020 Live Alone Or With Others? Alone Had A Brother And A Sister Both Of Whom Are . Gets Help When Needed From A Niece. [email or web address] Information not available 02/03/2020 Do You Take Precautions To Prevent Distracted Driving? Yes [employer] Private Information not available 11/02/2015 How Often Do You Need To Have Someone Help You When You Read Instructions, Pamphlets, Or Other Written Material From Your Doctor Or Pharmacy? Never [employer] Private Information not available 11/02/2015 Have You Served In The ? No [email or web address] Information not available 05/19/2016 Have You Or Anyone In Your Household Had Any Of The Following Symptoms In The Last 14 Days: Sore Throat, Cough, Chills, Body Aches For Unknown Reasons, Shortness Of Breath For Unknown Reasons, Loss Of Smell, Loss Of Taste, Fever At Or Greater Than 100 Degrees Fahrenheit? No [email or web address] Information not available 02/03/2020 Are You Or Anyone In Your Household A Health Care Provider Or Emergency Responder? No [employer] Private Information not available 02/03/2020 To The Best Of Your Knowledge Have You Been In Close Proximity To Any Individual Who Tested Positive For COVID-19? No [email or web address] Information not available 02/03/2020 What Was The Date Of Your Most Recent Tobacco Screening? 12/03/2018 [id number] Information not available 05/05/2020 How Many Children Do You Have? 0 [id number] Information not available 05/05/2020 Difficulty Reading? No [employer] Private Information not available 10/30/2014 Seat Belts Used Routinely Yes [email or web address] Information not available 11/02/2015 Are You Sexually Active? No [id number] Information not available 05/05/2020 Smoke Alarm In Home Yes [email or web address] Information not available 11/02/2015 Are You Passively Exposed To Smoke? No Information not available 11/02/2015 Do You Use Sunscreen Routinely? Yes [id number] Information not available 05/05/2020 Difficulty Watching TV? No Information not available 10/30/2014 Do You Have Difficulty Walking Or Climbing Stairs? No [id number] Information not available 05/05/2020 Sex: Unknown Functional Status Question Answer Note LastModified by Organizat ion Details LastModified Time What is your level of alcohol consumption? None [id number] Information not available 05/05/2020 Are you currently employed? No [id number] Information not available 05/05/2020 Difficulty driving at night? Yes Information not available 10/30/2014 Do you have difficulty doing errands alone? No [id number] Information not available 05/05/2020 Are you able to care for yourself? Yes [id number] Information not available 05/05/2020 Do you have difficulty dressing or bathing? No [id number] Information not available 05/05/2020 Do you or have you ever used e-cigarettes or vape? Never used electronic cigarettes [id number] Information not available 05/05/2020 What is your exercise level? Moderate [id number] Information not available 05/05/2020 Mental Status Question Answer Note LastModified by Organization D etails LastModified Time Do you have difficulty concentrating, remembering or making decisions? No [id number] Information no t available 05/05/2020 Family History Relationship Description Onset Age of this Age Resolved Age Notes LastModified by Organization Details LastModified Time Mother Carcinoma in situ of breast 85 [email or web address] Not available 08/2018 13:45:31 Sister Carcinoma in situ of breast [email or web address] Not available 11/01 11:07:30 Father Malignant tumor of colon 80 [email or web address] Not available 08/2018 13:45:46 Medical History No medical history recorded. Gynecological History Statement/Question Response Date of Last Pap Smear 10/21/2015 Most Recent Mammogram 05/26/2019 Obstetrics History GPAL:G 0 P 0 0 0 0 Immunizations Vaccine Type Date Status Note Provider Nam e and Address Organization Details Recorded Time Influenza, split virus, trivalent, PF 5 completed Monique pablo [facility] 04/29/2015 10:11:07 Influenza, high-dose, trivalent, PF 5 completed Monique pablo [facility] 04/29/2015 10:11:07 Influenza, high-dose, trivalent, PF 6 completed Alpesh [place] bev [facility] 05/19/2016 15:00:41 Pneumococcal conjugate PCV 13 5 completed Not Available [facility] 07/20/2019 02:21:36 Influenza, split virus, quadrivalent, preservative 7 completed Monique pablo [facility] 05/09/2017 13:00:17 Influenza, split virus, quadrivalent, preservative 8 completed Jordana pablo [facility] 05/02/2018 09:18:42 Influenza, split virus, trivalent, PF 4 completed Not Available [facility] 07/20/2019 02:21:57 Td (adult), 2 Lf tetanus toxoid, preservative free, adsorbed 0 completed Monique pablo [facility] 04/29/2015 10:11:07 pneumococcal polysaccharide PPV23 0 completed Monique pablo [facility] 04/29/2015 10:11:07 Tdap 7 completed Monique pablo [facility] 04/29/2015 10:11:07 Influenza, split virus, trivalent, preservative 7 completed Monique pablo [facility] 04/29/2015 10:11:07 Influenza, split virus, trivalent, preservative 8 completed Monique pablo [facility] 04/29/2015 10:11:07 Influenza, split virus, trivalent, preservative 9 completed Monique pablo [facility] 04/29/2015 10:11:07 pneumococcal polysaccharide PPV23 9 completed Monique pablo [facility] 04/29/2015 10:11:07 Influenza, split virus, trivalent, preservative 1 completed Monique pablo [facility] 04/29/2015 10:11:07 Meningococcal MCV4O 1 completed Monique pablo [facility] 04/29/2015 10:11:07 Influenza, split virus, trivalent, preservative 1 completed Monique pablo [facility] 04/29/2015 10:11:07 Tdap 1 completed Monique pablo [facility] 04/29/2015 10:11:07 pneumococcal polysaccharide PPV23 3 completed Monique pablo [facility] 04/29/2015 10:11:07 Past Encounters Encounter ID Performer Location Encounter Start Date Encounter Closed Date Diagnosis/Indication Diagnosis SNOMED-CT Code Diagnosis ICD10 Code Diagnosis Note [id number] MEREDITH Munoz Main Office [address] [facility] [address] [facility] [address] 01/21/2014 13:40:31 01/21/2014 14:54:33 Pain of joint of wrist [id number] concern for scaphoid fracture. x-ray normal. still wear splint and see ortho [id number] auto[facility]Comm erce [address] [facility] [place] [address] 09/07/2006 00:00:00 [id number] autoEComm erce [address] [facility] [place] [address] 09/07/2006 00:00:00 [id number] autoEComm erce [address] [facility],[address] [place] [address] 09/07/2006 00:00:00 [id number] autoEComm erc [address] [facility] [place] [address] 04/20/2007 00:00:00 [id number] autoEComm erce [address] [facility] [address] [place] [address] 04/20/2007 00:00:00 [id number] autoEComm erce [address] [facility] [address] [place] [address] 04/20/2007 00:00:00 [id number] autoEComm erce [address] [facility] [address] [place] [address] 04/20/2007 00:00:00 [id number] autoEComm erce [address] [facility] [address] [place] [address] 06/19/2007 00:00:00 [id number] autoEComm erce [address] [facility] [address] [place] [address] 06/19/2007 00:00:00 [id number] autoEComm erce [address] [facility],[address] [place] [address] 06/19/2007 00:00:00 [id number] autoEComm erce [address] [facility],[address] [place] [address] 06/19/2007 00:00:00 [id number] autoEComm erce [address] [facility],[address] [place] [address] 07/12/2006 00:00:00 [id number] autoEComm erce [address] [facility] [place] [address] 07/12/2006 00:00:00 [id number] autoEComm erce [address] [facility],[address] [place] [address] 12/19/2007 00:00:00 [id number] autoEComm erce [address] [facility],[address] [place] [address] 12/19/2007 00:00:00 [id number] autoEComm erce [address] [facility],[address] [place] [address] 03/12/2008 00:00:[address] [id number]Comm erce [address] [place] [address] 03/07/2009 00:00:00 [id number] autoEComm erce [address] [place] [address] 03/07/2009 00:00:00 [id number] autoEComm erce [address] [place] [address] 03/07/2009 00:00:00 [id number] autoEComm erce [address] [place] [address] 03/19/2009 00:00:00 [id number] autoEComm erce [address] [facility] [address] [place] [address] 04/22/2009 00:00:00 [id number] autoEComm erce [address] [facility],[address] [place] [address] 04/22/2009 00:00:00 [id number] autoEComm erce [address] [facility],[address] [place] [address] 04/22/2009 00:00:00 [id number] autoEComm erce [address] [facility] [place] [address] 04/22/2009 00:00:00 [id number] autoEComm erce [address] [facility] [place] [address] 09/21/2009 00:00:00 [id number] autoEComm erce [address] [facility],[address] [place] [address] 09/21/2009 00:00:00 [id number] autoEComm erce [address] [facility],[address] [place] [address] 09/21/2009 00:00:00 [id number] autoEComm erce [address] [facility],[address] [place] [address] 09/21/2009 00:00:00 [id number] autoEComm erce [address] [facility],[address] [place] [address] 01/02/2010 00:00:00 [id number] autoEComm erce [address] [place] [address] 01/02/2010 00:00:00 [id number] autoEComm erce [address] [place] [address] 01/02/2010 00:00:00 [id number] autoEComm erce [address] [place] [address] 05/28/2010 00:00:00 [id number] autoEComm erce [address] [facility] [address] [place] [address] 05/28/2010 00:00:00 [id number] autoEComm erce [address] [facility] [address] [place] [address] 07/12/2010 00:00:00 [id number] autoEComm erce [address] [facility] [address] [place] [address] 07/12/2010 00:00:00 [id number] autoEComm erce [address] [facility] [address] [place] [address] 09/13/2010 00:00:00 [id number] autoEComm erce [address] [facility] [address] [place] [address] 09/13/2010 00:00:00 [id number] autoEComm erce [address] [facility] [address] [place] [address] 09/13/2010 00:00:00 [id number] autoEComm erce [address] [facility] [address] [place] [address] 09/13/2010 00:00:00 [id number] autoEComm erce [address] [facility] [address] [place] [address] 04/01/2011 00:00:00 [id number] autoEComm erce [address] [facility] [address] [place] [address] 04/01/2011 00:00:00 [id number] autoEComm erce [address] [place] [address] 04/01/2011 00:00:00 [id number] autoEComm erce [address] [place] [address] 06/24/2011 00:00:00 [id number] autoEComm erce [address] [place] [address] 06/24/2011 00:00:00 [id number] autoEComm erce [address] [place] [address] 06/24/2011 00:00:00 [id number] autoEComm erce [address] [facility] [address] [place] [address] 09/08/2011 00:00:00 [id number] autoEComm erce [address] [facility],[address] [place] [address] 03/30/2012 00:00:00 [id number] autoEComm erce [address] [facility] [address] [place] [address] 10/18/2012 00:00:00 [id number] autoEComm erce [address] [facility] [address] [place] [address] 10/18/2012 00:00:00 [id number] autoEComm erce [address] [facility] [place] [place] [address] 10/18/2012 00:00:00 [id number] autoEComm erce [address] [facility],[address] [place] [address] 12/27/2012 00:00:00 [id number] autoEComm erce [address] [facility] [address] [place] [address] 01/14/2013 00:00:00 [id number] autoEComm erce [address] [facility] [address] [place] [address] 01/14/2013 00:00:00 [id number] autoEComm erce [address] [place] [address] 04/22/2013 00:00:00 [id number] autoEComm erce [address] [place] [address] 04/22/2013 00:00:00 [id number] autoEComm erce [address] [place] [address] 2 05/03/2013 00:00:00 [id number] autoEComm erce [address] [place] [address] 2 05/03/2013 00:00:00 [id number] autoEComm erce [address] [place] [address] 05/03/2013 00:00:00 [id number] autoEComm erce [address] [facility] [address] [place] [address] 05/15/2013 00:00:00 [id number] autoEComm erce [address] [facility] [address] [place] [address] 2 05/15/2013 00:00:00 [id number] autoEComm erce [address] [facility] [address] [place] [address] 2 05/15/2013 00:00:00 [id number] autoEComm erce [address] [facility] [address] [place] [address] 2 09/09/2013 00:00:00 [id number] autoEComm erce [address] [facility] [address] [place] [address] 2 09/09/2013 00:00:00 [id number] autoEComm erce [address] [place] [address] 2 10/21/2013 00:00:00 [id number] autoEComm erce [address] [place] [address] 2 10/21/2013 00:00:00 [id number] autoEComm erce [address] [facility],[address] [place] [address] 2 05/16/2008 00:00:00 [id number] autoEComm erce [address] [place] [address] 2 05/16/2008 00:00:00 [id number] autoEComm erce [address] [place] [address] 2 05/16/2008 00:00:00 [id number] autoEComm erce [address] [facility] [address] [place] [address] 05/16/2008 00:00:00 [id number] autoEComm erce [address] [place] [address] 2 03/06/2012 00:00:00 [id number] autoEComm erce [address] [facility] [address] [place] [address] 03/06/2012 00:00:00 [id number] autoEComm erce [address] [facility],[address] [place] [address] 2 03/06/2012 00:00:00 [id number] autoEComm erce [address] [facility],[address] [place] [address] 03/06/2012 00:00:00 [id number] autoEComm erce [address] [facility],[address] [place] [address] 09/29/2007 00:00:00 [id number] autoEComm erce [address] [facility],[address] [place] [address] 09/29/2007 00:00:00 [id number] autoEComm erce [address] [facility],[address] [place] [address] 2 02/21/2007 00:00:00 [id number] autoEComm erce [address] [facility],[address] [place] [address] 2 02/21/2007 00:00:00 [id number] autoEComm erce [address] [facility],[address] [place] [address] 02/19/2013 00:00:00 [id number] autoEComm erce [address] [facility],[address] [place] [address] 2 02/19/2013 00:00:00 [id number] autoEComm erce [address] [facility] [address] [place] [address] 2 12/23/2011 00:00:00 [id number] autoEComm erce [address] [place] [address] 12/23/2011 00:00:00 [id number] autoEComm erce [address] [facility],[address] [place] [address] 12/23/2011 00:00:00 [id number] autoEComm erce [address] [facility],[address] [place] [address] 2 01/15/2009 00:00:00 [id number] autoEComm erce [address] [facility],[address] [place] [address] 2 09/12/2008 00:00:00 [id number] autoEComm erce [address] [facility],[address] [place] [address] 2 09/12/2008 00:00:00 [id number] autoEComm erce [address] [facility],[address] [place] [address] 2 11/19/2010 00:00:00 [id number] autoEComm erce [address] [facility],[address] [place] [address] 2 11/19/2010 00:00:00 [id number] MEREDITH Sampson Main Office [address] [facility] [address] [place], [place] [address] 03/06/2014 13:41:22 03/06/2014 14:11:55 Thoracic back pain [id number] Rashawn Buitrago MD Main Office [address] [facility] [address] [place], [place] [address] 04/22/2014 11:20:08 04/22/2014 12:05:47 Thoracic back pain 820752207 Needs infl uenza immunization 169190894 Varicella vaccination 97116680 Essential hypertension 50831994 Osteoarthr osis of the carpometacarpal joint of the thumb 96663240 left hand; she will be getting surgery done next year. 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 to podiatry for considerat ion steroid injection. she will get copy of x[facility] Palpitations 14773784 ch ronic problem with mild change we discussed how to diagnose afib. I suggested either 24 hr holter or cardio referral. she is undecided but understand s the risks of afib. she will call us if interested in either of those options [id number] Rashawn Buitrago MD Main Office [address] [address] [place] [address] 10/30/2014 09:20:58 10/30/2014 10:29:31 Adult health examination 334021267 At [facility] risk for falls 046431679 Bilateral hearing loss 09543986 Administra tion of pneumococcal vaccine 83159897 Pure hypercholesterolemia 835399076 [id number] Rashawn Buitrago MD Main Office [address] [place] [address] 04/29/2015 09:48:27 04/29/2015 11:29:43 Anxiety state 179988291 F41.1 good control with current meds Recurrent major depressive episodes 909561498 F33.9 good control with current meds. Low back pain 719365992 M54.5 appears to be muscular; she will continue with heat and ice and gentle stretching and will call Dr Tatum if it persists. Colostomy present 912019 [address] Juarez Crohn's di sease of large bowel 9509671 K50.[address] Juarez [id number] Rashawn Buitrago MD Main Office [address] [address] [place] [address] 11/02/2015 10:51:39 11/02/2015 11:56:45 Adult health examination 432682955 Z00.00 At formerly [facility] risk for falls 906824214 Z91.81 Advance di rective discussed with patient 844689530 Z71.89 Pure hypercholesterolemia 880458769 E78.0 Colostomy present 597034 [address] Juarez Crohn's di sease of large bowel 6691006 K50.118 [id number] Lina Gonzales PA-C Main Office [address] [place] [address] 02/01/2016 09:47:31 02/01/2016 11:21:36 Dysuria 15778913 R30.0 Rib pain 005271443 R07.8 1 R. lower rib cage pain. Pt. is advised to take Tylenol ES and apply heat for 10 minutes couple of times daily. PT. was reassured. If pain persists or new symptoms occur further work up might be needed. [id number] Rashawn Buitrago MD Main Office [address] [place] [address] 05/04/2016 10:38:02 05/04/2016 12:02:09 Asthma 543983463 J45.909 good control; no longer using an inhaler Anxiety state 736073689 F41.1 good control with current meds Hyperlipidemia 69337075 E78.5 Her 10-year risk according to the risk calculator is 6.9%. She will try to make some changes and we will recheck her lipids in 6 months. [id number] Luis Fernando Winston MD Main Office [address] [place] [address] 05/19/2016 14:45:36 05/19/2016 16:03:37 Pain in lower limb 42742737 M79.661 [id number] Rashawn Buitrago MD Main Office [address] [place] [address] [place] [address] 07/12/2016 13:58:12 07/12/2016 14:58:41 Acute sinusitis 49156991 J01.90 [id number] Rashawn Buitrago MD Main Office [address] [place] [address] 11/07/2016 10:51:50 11/07/2016 12:00:35 Adult health examination 193422353 Z00.00 UTD with immunizati ons and does not want the shingles shot because she reports that her copay for this is around $100. No need for a colonoscop y since it was removed secondary to Crohns disease in 1984. Crohn's di sease of large bowel 5308789 K50.118 Followed by GI and has been stable for years Colostomy present 692879 [address] Juarez Recurrent major depressive episodes 861873717 F33.9 good control with current meds. Hyperlipidemia 85951688 E78.5 Her LDL is running at a good level and her HDL is high at 75. [id number] Rashawn Buitrago MD Main Office [address] [place] [address] [place] [address] 01/13/2017 10:54:58 01/13/2017 12:03:40 Left sided abdominal pain 637147555 R10.9 This is probably groin strain from recent exercise but will get an xray to look for obstructio n. This is less likely given her mild tenderness and a functionin g stoma. [id number] Lina Gonzales PA-C Main Office [address] [address] [place] [address] 03/03/2017 10:38:22 03/03/2017 11:05:06 Costal chondritis 82880042 M94.0 Pt. is advised to use heating pad couple of times a day and add Tylenol PRN on top of her Celebrex she uses for arthritis. [id number] Rashawn Buitrago MD Main Office [facility] [place] [address] [place] [address] 05/09/2017 12:31:17 05/09/2017 13:20:52 Gastroesophageal reflux disease 106975385 K21.9 Asthma 929254198 J45.90 9 Recurrent major depressive episodes 622043931 F33.9 good control with current meds. [id number] Rashawn Buitrago MD Main Office [address] [place] [address] [place] [address] 11/08/2017 12:46:00 11/08/2017 14:05:36 Adult health examination 960187515 Z00.00 UTD with immunizati ons and does not want the shingles shot because she reports that her copay for this is around $100. No need for a colonoscop y since it was removed secondary to Crohns disease in 1984. Palpitations 36758131 R0 0.2 Younger brother recently of an [place] Crohn's di sease of large bowel 9578484 K50.118 Followed by GI and has been stable for years Colostomy present 212050 [address] Juarez Recurrent major depressive episodes 013282525 F33.9 good control with current meds. [id number] Rashawn Buitrago MD Main Office [address] [address] 04/27/2018 08:23:02 04/29/2018 21:04:12 [id number] Lina Gonzales PA-C Main Office [address] [place] [address] 05/02/2018 09:01:11 05/02/2018 10:12:27 Right upper zone pneumonia 779097533 J18.1 f/u with pulmonary. PT. will need repeat CT in 6 weeks. Otherwise ,clinicall y stable from pulm. point of view. Acute inju ry of kidney 7398843480 6088726 N17.9 repeat labs. Anemia 831426125 D64.9 normocytic pattern, ? anemia of chronic disease . Repeat CBC in 1 month. [id number] Rashawn Buitrago MD Main Office [address] [address] 05/17/2018 12:34:29 05/17/2018 13:29:20 Pneumonia 897179443 J18.9 Completed a course of abx and doing better. Anemia 069394914 D64.9 Hemoptysis 69689552 R04. 2 Believed to have been secondary to her pneumonia. Will get a copy of her recent bronchosco py and she will f/u with pulmonary as scheduled. Bronchiectasis 62912027 J47.9 [id number] Rashawn Buitrago MD Main Office [address] [address] 12/03/2018 12:36:08 12/03/2018 13:56:31 Adult health examination 608993012 Z00.00 UTD with immunizati ons and will get the shingles shot at her pharmacy. No need for a colonoscop y since her colon was removed secondary to Crohns disease in 1984. Crohn's di sease of large bowel 9639206 K50.118 Followed by GI and has been stable for years Colostomy present 934251 [address] Juarez Recurrent major depressive episodes 662951111 F33.9 good control with current meds. Hyperlipidemia 59568420 E78.5 Last level was at goal. [id number] Rashawn Buitrago MD Main Office [address] [facility] [address] [place] [address] 04/17/2019 16:00:55 04/17/2019 16:54:57 Low blood pressure 20773937 I95.9 If this persists she will call and we will do a cardiology appointmen t. [id number] Rashawn Buitrago MD Telehealt h 3640 [facility] [address] [place] [address] 02/03/2020 06:46:29 02/03/2020 14:33:27 Adult health examination 543750123 Z00.00 UTD with immunizati ons and will get the shingles shot at her pharmacy. No need for a colonoscop y since her colon was removed secondary to Crohns disease in 1984. Hyperlipidemia 69543814 E78.5 Last level was at goal. Recurrent major depressive episodes 069664417 F33.0 good control with current meds. Seeing a psychiatri st Colostomy present 977654 [address] Juarez Pulmonary Mycobacterium avium complex infection 020884758 A31.0 On meds for one year (started Aug 2019) and followed by Dr Best. Health Concerns Section Related Observation LastModified by Organization Detai ls LastModified Time None Recorded Concern Status LastModified by Organization Details LastModified Time None Recorded Advance Directives Directive Y: Payers Encounter Date Sequence Insurance Name Policy Number Policy Sheets Covered Member ID Sheets Member ID Guarantor Name 05/02/2018 1 [place] [employer] Erika Montalvo [id number] [id number] Erika Montalvo 05/02/2018 2 [place] [id number] Erika Montalvo [id number] Erika Montalvo 05/17/2018 1 [place] [employer] Erika A Katia [id number] [id number] Erika A Katia 05/17/2018 2 [place] [id number] Erika A Katia [id number] Erika A Katia 12/03/2018 1 [place] [employer] Erika A Katia [id number] P46 Erika A Katia 12/03/2018 2 [place] [id number] Erika A Katia [id number] Erika A Katia 04/17/2019 1 [place] [employer] Erika A Katia [id number] P46 Erika A Katia 04/17/2019 2 [place] [id number] Erika A Katia [id number] Erika A Katia 02/03/2020 1 [place] [employer] Erika A Katia [id number] P46 Erika A Katia 02/03/2020 2 [place] [id number] Erika A Katia [id number] Erika A Katia Notes Date Note Type Note Provider Name and Address Organization Details Recorded Time 05/02/2018 text/html Hospitalization Contact RecordReported bypatient.Follow UpHospital[facility]; admit date: (Please enter in format 'MM/DD/YYYY'); date of discharge: (Please enter in format 'MM/DD/YYYY') (04/24/2018); date of contact: (Please enter in format 'MM/DD/YYYY') (04/26/2018)Notes:Med icare covered inpatient stay? yes Medicare JAN with in 48 working hours? yes High Complexity code valid on or before:May Moderate Complexity code valid on or before: May HCP on file? yes MOLST on file? no Discharge Summary available? yes 68 year old female presented to [facility] complaining of hemoptysis . Patient was outside raking leaves reports that evening started to experience coughing fit which resulted to clotted blood . Patient admitted for further management , CT angio ordered impression negative for PE, but concerning for infectious verus malignant process. Patient was started pn IV ceftriaxone and zithromax. Bronchoscopy was completed noted was old blood and a clot , no lesion or mass found. Likely pneumonia . Patient instructed to continue antibiotic for a total of 7 days. Patient was stable for discharge. Patient was switch to oral levaquin and to completed the last 5 days of antibiotic regimen. Custom Dressmaker JAN call to patient regarding discharge status . Unable to successfully reach patient , left detailed message to please contact office with questions, concerns, change in status. Patient is scheduled to follow up with CAROLE Hollingsworth on 05/02/18 at 9:30 am . 68 year old female with past medical h/o Crohn's disease , s/p total colectomy, chronic bronchiectasis followed by DR. Low , presented to [facility] ER on 04/24/18 c/o hemoptysis started on 04/21/18. Pt. had some cough and passing bright red clotted blood intermittently. Some fatigue, no fever or SOB. She denied recent travel. Labs showed mild anemia w/o coagulopathy, renal functions with elev. creatinine. CTA chest showed no PE , but R. hilar adenopathy with nodular infiltrates in the middle and upper lobe concerning for infectious process or malignancy. PT. was admitted . Pt. treated with Rocephin and Azithromycin and transferred to medical floor. Seen by Dr. Best. Had bronchoscopy neg for mass, showed old blood clot. Believed to be pneumonia . Planned CT in 6 weeks and post hosp. f/u. PT. was discharged on Abx and reports completing course yesterday.Pt. reports feeling well since the discharge. No fever, chills. Energy is reported back to normal. Pt. has no kayley with Dr. Low but knows she is supposed to have repeat chest CT in 6 weeks. She will be calling him to have that set up. Melani pablo [facility] 05/03/2018 16:23:44 05/17/2018 text/html She had hemoptys is and went to the [facility] ER where she was diagnosed with pneumonia. She was ruled out for a PE. She also had a bronchoscopy done by Dr Best. She completed a course of abx and is followed by pulmonary and will be having more imaging done next month to document resolution. Currently she is feeling well and denies any cough, fever or SOB. We have her report from her hospitalization and her pulmonary consults but do not have a report on her bronchoscopy. Rashawn Buitrago MD [address], [address], [facility] 05/18/2018 10:44:20 12/03/2018 text/html Medicare Annual Wellness VisitReported bypatient.Diet and Nutrition:healthy diet; discussed vitamin and supplement use (vitamin D); discussed maintaining calcium balance Fracture Risk:history of fractures(right foot 2014) Physical Activity:exercises on a regular basis (walking) Orientation:no disorientation to time; no disorientation to date; no disorientation to place Concentration and Memory:no decreased concentrating ability; does not forget words;memory lapses or loss(recent events) Speech/Motor difficulties:no speech difficulties; no difficulty expressing formulated concepts; no difficulty with fine manipulative tasks; no difficulty writing/copying; no slowed reaction time; does not knock things over when trying to pick them up Hearing:no loss of hearing Vision:no vision problems; cataracts and macular degeneration Activities of Daily Living:able to bathe with limited or no assistance; able to contol urination and bowels; able to dress with limited or no assistance; able to feed self with limited or no assistance; able to get out of chair or bed with limited or no assistance; able to groom with limited or no assistance; able to toilet with limited or no assistance Instrumental Activities of Daily Living:able to do house work with limited or no assistance; able to grocery shop with limited or no assistance; able to manage medications with limited or no assistance; able to manage money with limited or no assistance; able to prepare meals with limited or no assistance; able to use the phone with limited or no assistance Falls Risk Assessment:fall(s) in the past year 1 Rashawn Buitrago MD [address], [address], [facility] 12/03/2018 19:09:39 04/17/2019 text/html She took her BP recently and noted a low blood pressure. She has had a little lightheadedness when changing position. Denies CP and not taking any new meds either prescription or OTC. Does not drink alcohol or do drugs. Has crohns disease and a colostomy and has not noted any change in her colostomy output. No f/c. Rashawn Buitrago MD [address], [address], [facility] 04/17/2019 18:06:40 02/03/2020 text/html Medicare Annual Wellness VisitReported bypatient.Diet and Nutrition:healthy diet; discussed vitamin and supplement use (vitamin D); discussed maintaining calcium balance Fracture Risk:history of fractures(right foot 2014) Physical Activity:exercises on a regular basis (walking) Orientation:no disorientation to time; no disorientation to date; no disorientation to place Concentration and Memory:no decreased concentrating ability; does not forget words;memory lapses or loss(recent events) Speech/Motor difficulties:no speech difficulties; no difficulty expressing formulated concepts; no difficulty with fine manipulative tasks; no difficulty writing/copying; no slowed reaction time; does not knock things over when trying to pick them up Hearing:no loss of hearing Vision:no vision problems; cataracts and macular degeneration Activities of Daily Living:able to bathe with limited or no assistance; able to contol urination and bowels; able to dress with limited or no assistance; able to feed self with limited or no assistance; able to get out of chair or bed with limited or no assistance; able to groom with limited or no assistance; able to toilet with limited or no assistance Instrumental Activities of Daily Living:able to do house work with limited or no assistance; able to grocery shop with limited or no assistance; able to manage medications with limited or no assistance; able to manage money with limited or no assistance; able to prepare meals with limited or no assistance; able to use the phone with limited or no assistance Falls Risk Assessment:fall(s) in the past year 1 Rashawn Buitrago MD [address], [address], [facility] 02/03/2020 12:11:49 OBGyn Episode No OBEpisode recorded.
--- NOTE | 2024-11-27 14:15 | A.OFFVIS_ITS ---
Vital Signs 11/27/24 14:22 Height 5 ft 5 in Weight 152 lb BMI 25.3 BP 122/72 Blood Pressure Location Lt brachial Position Sitting Pulse 66 Pulse Source Pulse Oximeter Pulse Oximetry (%) 95 Oxygen Delivery Method Room Air Intake Visit Reasons: 6 month F/U Intake Note: Patient presents follow up ANNIE. Compliance requested from [facility]. PSG scheduled to order new CPAP 12/25. Looking to see if a candidate for inspire. Allergies heyfever Allergy (Unknown, Uncoded 11/27/24 14:34) Unknown HPI Comments Details: 74 year old female with copd is being evaluated for ANNIE she is on cpap therapy. HST is needed for cpap reinstatement. She goes to sleep at 10pm and tosses and turns, if she starts reading she will fall asleep immediately. She wakes up 3-4 to go use the bathroom. She feels more tired daily. ANGEL infection, with chronic upper respiratory infections and bronchitis which lead to pneumonia 2x in the last 4 months. Mood and diet is okay, she is trying to decrease her cholesterol levels. Denies migraines. Memory is poor at base line, she forgets a lot, can be clearer some days. Loses things easily, word recall is slow, attention and focus has decreased. She does puzzles, socializes daily, does all her yard wark. She lives independently in [facility]. She is able to complete all her ADLs independently. She needs some minor support with daily task and requests assistance. RLS: uncomfortable sensation bilaterally in feet travels up to the shins, she thinks it was TD due to anti depressant use. (Venlafaxine). She is scheduled for in lab sleep study on December 25, 2024, and her labs are wnl. Del[employer] for [employer] services ([email or web address] [facility] Medical History (Updated 11/27/24 @ 15:05 by Carolyn Casillas PA-C) COPD (chronic obstructive pulmonary disease) Basal cell carcinoma Surgical History H/O heart surgery S/P Mohs surgery for basal cell carcinoma History of cataract extraction with lens replacement H/O splenectomy Family History Father Cancer Stroke Mother Cancer Social History Alcohol intake: never Patient Tobacco Use Status: Former Tobacco user Physical Exam Vital Signs: Last Vital Signs Pulse 66 11/27/24 14:22 BP 122/72 11/27/24 14:22 Pulse Ox 95 11/27/24 14:22 Oxygen Delivery Method Room Air 11/27/24 14:22 BMI result Body Mass Index 25.3 Const General: cooperative, comfortable and no acute distress Orientation/consciousness: patient oriented x3 Eyes Pupils: Equal, round and reactive pupils present Neck Neck: Yes full ROM Resp Effort & Inspection: normal respiratory effort and able to speak in complete sentences Neuro Other: slow to stand, ambulates with cane, stooped posture, gait is antalgic, uses her walker when she is more fatigued. General: patient oriented x3 and moves all extremities Cranial nerves: Yes Facial sensation intact/muscles of mastication intact, Yes Equal, round and reactive pupils present, Yes Normal accommodation reflex present, Yes Normal facial strength present, Yes Midline tongue present, Yes Ability to bilaterally rotate head present and Yes Ability to bilaterally elevate shoulders present Gait exam (Neuro): Antalgic gait present Motor exam (neuro): 5/5 motor strength present throughout and Normal motor muscle tone present throughout Coordination: [id number]-fh-[id number] test normal Psych Appearance: grossly normal Results Reviewed Results Reviewed: Labs from Dr. Lai office at [facility] [place]. Assessment & Plan Assessment & Plan (1) Obstructive sleep apnea: Comment: Inspire therapy if her AHI is improved. Code(s): G47.33 - Obstructive sleep apnea (adult) (pediatric) Category: Medical (2) Neuroleptic-induced tardive dyskinesia: Comment: h/o Risperdal exposure, chronic Effexor. Code(s): G24.01 - Drug induced subacute dyskinesia; T43.505A - Adverse effect of unspecified antipsychotics and neuroleptics, initial encounter Category: Medical (3) Low back pain radiating to left lower extremity: Code(s): M54.50 - Low back pain, unspecified; M79.605 - Pain in left leg Category: Medical Plan ANNIE on cpap therapy, insurance needs reinstatement and evaluation of sleep apnea. Inspire candidate? moderate ANNIE ENT? Labs from [facility] are normal with exception of folate >20. HDL was 90, TSH, vit d, b12, homocysteine and mma all normal. Dine in labs at [facility] Dr. powell Patient Instructions: Sleep Hygiene provided: set a scheduled bedtime and wake time to help regulate the circadian rhythm and balance the release of pituitary hormones. Sleep in a dark room, temperatures below 68 degrees, and no devices n bed. Limit caffeinated products 6 hours prior to bed, and limit fluids 2-4 hours prior to bed. Gentle night yoga, diffusing essential oils, and playing soft music can be relaxing. Coding Level of Care Code Est Pt Level 4 (58604) Diagnoses Obstructive sleep apnea G47.33 Neuroleptic-induced tardive dyskinesia G24.01; T43.505A Low back pain radiating to left lower extremity M54.50; M79.605 Time Spent (min) 30
[2024-11-27 14:22] VITALS: BP 122/72; PULSE 66; O2SAT 95; BMI 25.3
== END 2024-11-27 15:05 | disposition home or self-care (01) ==
LOC: HO.HSMS 13:16
PROVIDERS: PCP Internal Medicine; Visit Provider Physician Assistant Medical
DX: G47.33 Obstructive sleep apnea (adult) (pediatric) (principal); G24.01 Drug induced subacute dyskinesia; T43.505A Adverse effect of unspecified antipsychotics and neuroleptics, initial encounter; M54.50 Low back pain, unspecified; M79.605 Pain in left leg
CPT/HCPCS: 99214

== ENCOUNTER → 2024-11-27 13:15 | Outpatient (BNVA) | payer MEDICARE, SELFPAY | PROVIDERS: PCP Internal Medicine; Visit Provider Physician Assistant Medical | DX: G47.33 Obstructive sleep apnea (adult) (pediatric) (principal); G24.01 Drug induced subacute dyskinesia; M54.50 Low back pain, unspecified; M79.605 Pain in left leg; T43.505A Adverse effect of unspecified antipsychotics and neuroleptics, initial encounter; X58.XXXA Exposure to other specified factors, initial encounter; Z99.89 Dependence on other enabling machines and devices | CPT/HCPCS: 99212 ==

== ENCOUNTER → 2024-12-25 19:30 | Outpatient (REF) | payer MEDICARE, SELFPAY ==
--- OUTSIDE RECORDS SUMMARY | 2024-12-25 22:30 | XMS_ITS ---
Author Name [facility] Organization Unknown Encounters Encounter Type Encounter Reason Primary Diagnosis Location Date Ambulatory [facility] 08/29/2024 Ambulatory [facility] 08/29/2024 Care Team Organization Name Specialty Phone Email Start Date End Da [facility]ly [facility] 2024
== END ==
LOC: HO.SL 19:30
PROVIDERS: Visit Provider Nurse Practitioner Family
DX: G47.33 Obstructive sleep apnea (adult) (pediatric) (principal); R06.83 Snoring
CPT/HCPCS: 95810

== ENCOUNTER → 2024-12-25 22:43 | Outpatient (BNV) | payer MEDICARE, SELFPAY | PROVIDERS: Visit Provider Psychiatry & Neurology Neurology | DX: G47.61 Periodic limb movement disorder (principal) | CPT/HCPCS: 95810 ==

== ENCOUNTER 2025-02-28 13:46 | Outpatient (AMB) | payer MEDICARE, SELFPAY ==
--- OUTSIDE RECORDS SUMMARY | 2025-02-28 13:48 | XMS_ITS | Encounter Summary ---
Author Organization [facility] Address [address] [place] [address] Care Team Providers Care Net Development Manager Name Role Phone Terrance Buitrago MD Primary Care Provider U Jose Javed MD Unavailable [phone] Jan Segundo Unavailable Unavailable Natali Phillip MD Unavailable Horacio Juarez MD Unavailable Unavailab Damir Haas MD Unavailable UnavailAnjum Newsome Unavailable Unavailable Star Norton MD Primary Care Provider Unavail able Erika Souza PA-C Unavailable Reason for Visit * Reason Onset Date Comments Provider Call Back 05/20/2019 Encounter Details Date Type Department Care Team Description 05/20/2019 Telephone Pulmonology - [place] [address] [facility] [address] [place] [address] Natali Phillip MD [address] [place] [address] Provider Call Back Social History Tobacco Use Types Packs/Day Years Used Date Smoking Tobacco: Former Cigarettes 1 Q uit: 1980 Smokeless Tobacco: Never Alcohol Use Standard Drinks/Week Comments No 0 (1 standard drink = 0.6 oz pur e alcohol) Sex Assigned at Date Recorded Not on file documented as of this encounter Miscellaneous Notes * Telephone Encounter - Natali Phillip MD - 05/20/2019 6:21 PM EST Can you book her for a bronch in a week or two * Telephone Encounter - Winnie Esteban M.A. - 05/20/2019 3:12 PM EST I called patient but she did not anwer the phone. * Telephone Encounter - Marylou Del Cid - 05/20/2019 9:47 AM EST Caller requesting call back from provider: Is the caller the patient? YES If caller is not the patient, what is the callers name? N/A Callers relationship to patient? N/A If person calling is not the patient themselves, is there a verbal release in FYI or permanent comments for this person: YES Reason for call back: Patient called and said she needs the diagnostic code for her insurance Caller offered to speak with the nurse for assistance: YES Response: Patient offered to speak with nurse for assistance and patient agreed. Message forwarded to nurse. documented in this encounter Plan of Treatment Not on file documented as of this encounter Visit Diagnoses Not on filedocumented in this encounter Care Teams Net Development Manager Relationship Specialty Start Date End Date Terrance Buitrago MD PCP - General Internal Medicine 08/01/1706/02 Star Norton MD [address] [place] [address] PCP - General Internal Medicine 06/13/23 Jose Orozco MD [address] [address] Specialist Cardiology 06/01/23 Jan Segundo [address] [address] Obstetrics/Gynecology 06/12/23 Natali Phillip MD [address] [place] [address] Specialist Pulmonology 06/12/23 Horacio Juarez MD [address] [place] [address] Gastroenterology 06/12/23 Damir Fried MD [address] [place] [address] Rheumatology 06/12/23 Anjum Brody [address] [place] [address] Ophthalmology 06/12/23 Erika Souza PA-C [address] [place] [address] Specialist Cardiology 08/09/23 documented as of this encounter
--- OUTSIDE RECORDS SUMMARY | 2025-02-28 13:48 | XMS_ITS | Encounter Summary ---
Author Organization [facility] Address [address] [place] [address] Care Team Providers Care Pattern Keeper Name Role Phone Terrance Buitrago MD Primary Care Provider U Jose Javed MD Unavailable [phone] Jan Segundo Unavailable Unavailable Natali Phillip MD Unavailable Horacio Juarez MD Unavailable Unavailab Damir Haas MD Unavailable UnavailAnjum Newsome Unavailable Unavailable Star Norton MD Primary Care Provider Unavail able Erika Souza PA-C Unavailable Reason for Visit * Reason Onset Date Comments refill request 05/23/2018 Encounter Details Date Type Department Care Team Description 05/23/2018 Refill Pulmonology - [address] [place] [id number] Richardson Johnson MD refill request Social History Tobacco Use Types Packs/Day Years Used Date Smoking Tobacco: Former Cigarettes 1 Q uit: 1980 Smokeless Tobacco: Never Alcohol Use Standard Drinks/Week Comments No 0 (1 standard drink = 0.6 oz pur e alcohol) Sex Assigned at Date Recorded Not on file documented as of this encounter Miscellaneous Notes * Telephone Encounter - Richardson Johnson MD - 05/23/2018 3:46 PM EST Ordered. * Telephone Encounter - Alexa Rogers M.A. - 05/23/2018 2:38 PM EST Pt has an appt in Aug with you * Telephone Encounter - Gabby Low - 05/23/2018 1:58 PM EST Patient would like script to be: E-PRESCRIBED/FAXED TO PHARMACY WHEN WAS THE PATIENT'S LAST APPOINTMENT WITH THE PRESCRIBING PROVIDER? 05/16/18 Does patient have an upcoming appointment? Yes 08/16/18 (THE MEDICATION REQUESTED IS ON THE MED LIST ABOVE) All of the medications requested were on the CURRENT MEDS list Did you check the Pharmacy information above?: YES Patient wants: 30 -day supply Is this a mail order prescription request ? NO Patients current [place] carrier is: [place] / [place] / Product Type: MEDICARE [id number] documented in this encounter Plan of Treatment Not on file documented as of this encounter Visit Diagnoses Not on filedocumented in this encounter Care Teams Pattern Keeper Relationship Specialty Start Date End Date Terrance Buitrago MD PCP - General Internal Medicine 08/01/1706/02 Star Norton MD [address] [place] [address] PCP - General Internal Medicine 06/13/23 Jose Orozco MD [address] [address] Specialist Cardiology 06/01/23 Jan Segundo [address] [address] Obstetrics/Gynecology 06/12/23 Natali Phillip MD [address] [place] [address] Specialist Pulmonology 06/12/23 Horacio Juarez MD [address] [place] [address] Gastroenterology 06/12/23 Damir Fried MD [address] [place] [address] Rheumatology 06/12/23 Anjum Brody [address] [place] [address] Ophthalmology 06/12/23 Erika Souza PA-C [address] [place] [address] Specialist Cardiology 08/09/23 documented as of this encounter
--- OUTSIDE RECORDS SUMMARY | 2025-02-28 13:48 | XMS_ITS | Clinical Summary ---
Author Organization [facility] Address [address] [place] [address] Care Team Providers Care Director Of Student Services Name Role Phone Jose Orozco MD Unavailable [phone] Jan Segundo Unavailable Unavailable Natali Phillip MD Unavailable Horacio Juarez MD Unavailable Unavailab Damir Haas MD Unavailable UnavailAnjum Newsome Unavailable Unavailable Star Norton MD Primary Care Provider Unavail able Erika Souza PA-C Unavailable Allergies No known active allergies Medications Medication Sig Dispensed Refills Start Date End Date Status venlafaxine (EFFEXOR-XR) 150 MG 24 hr capsule Take 150 mg by mouth daily. 0 Active pantoprazole (PROTONIX) 40 MG tablet TAKE 1 TABLET BY MOUTH TWICE A DAY 2 12/13/2017 Active CPAP Historical (HISTORICAL CPAP)Indications:ANNIE (obstructive sleep apnea) Inhale into the lungs. [facility] 0 Active alendronate (FOSAMAX) 70 MG tablet Take 70 mg by mouth every 7 days. 0 Active simvastatin (ZOCOR) 10 MG tablet 0 12/10/2021 Active Multiple Vitamins-Minerals (PreserVision AREDS 2+Multi Vit) CapIndications:Bronchi ectasis without complication (HCC) Take by mouth. 0 Ac tive MAGNESIUM OXIDE OR Take by mouth. 0 Ac tive Cyanocobalamin 1000 MCG/ML Kit Inject as directed. 0 Active ALBUTEROL SULFATE 108 (90 Base) MCG/ACT Aero SolnIndications:ANNIE (obstructive sleep apnea),LACI (mycobacterium avium-intracellulare) (HCC),Bronchiectasis without complication (HCC) Inhale 2 Puffs into the lungs every 4 hours as needed for Cough or Wheezing for up to 30 days. 16 g 2 02/08/2024 Active Active Problems Problem Noted Date History of cardiac radiofrequency ablati on 08/09/2023 Overview: Done on 07/12/2023 at [facility] w SR indications:Symptomatic palpitation SOB (shortness of breath) 08/09/2023 Sinus riya-tachy syndrome 08/09/2023 Bradycardia 08/09/2023 Atrial tachycardia 06/08/2023 AVNRT (AV tadeo re-entry tachycardia) PSVT (paroxysmal supraventricular tachyc ardia) 06/08/2023 COPD (chronic obstructive pulmonary dise ase) 06/08/2023 HLD (hyperlipidemia) 06/08/2023 Palpitation 06/08/2023 Mycobacterium avium complex 04/08/2019 Asthma 08/28/2017 Allergic rhinitis 08/28/2017 ANNIE (obstructive sleep apnea) 08/28/2017 Overview: CPAP Depression 08/28/2017 Immunizations Name Administration Dates Next Due COVID-19 (Moderna) 11/09/2021,07/01/2021, 021,10/15/2020 COVID-19 (Pfizer) 03/19/2022 Family History Medical History Relation Name Comments Cancer of the Breast Mother Cancer of the Breast Sister COPD,CA D, HTN,Drug/Alcohol, Joint Problems Relation Name Status Comments Mother Sister Social History Tobacco Use Types Packs/Day Years Used Date Smoking Tobacco: Former Cigarettes 1 Q uit: 1979 Smokeless Tobacco: Never Tobacco Cessation:Counseling Given: Not Answered Alcohol Use Standard Drinks/Week Comments No 0 (1 standard drink = 0.6 oz pur e alcohol) Sex Assigned at Date Recorded Not on file Last Filed Vital Signs Vital Sign Reading Time Taken Comments Blood Pressure 114/64 02/01/2024 9:35 AM EDT Pulse 67 02/01/2024 9:35 AM EDT Temperature 36.5 C (97.7 F) 02/01/2024 9:35 AM EDT Respiratory Rate 20 02/01/2024 9:35 AM EDT Oxygen Saturation 96% 02/01/2024 9:35 AM EDT Inhaled Oxygen Concentration - - Weight 65.7 kg (144 lb 12.8 oz) 02/01/2024 9:35 AM EDT Height 165.1 cm (5' 5 ) 02/01/2024 9:35 AM EDT Body Mass Index 24.1 02/01/2024 9:35 AM EDT Plan of Treatment Health Maintenance Due Date Last Done Comments DEPRESSION SCREEN 1960 HEPATITIS C SCREENING 1966 CHOLESTEROL SCREENING 1968 MAMMOGRAM 1988 SHINGLES VACCINE (1 of 2) 1998 BONE DENSITY SCREENING 2013 FALL RISK ASSESSMENT 2013 DTAP/TDAP/TD (3 - Td or Tdap) 05/23/2021 05/23/2011, 04/20/2007 Covid-19 Vaccine (2022-2 4 season) 2024 03/19/2022, 11/09/2021, 07/01/2021, Additional history exists INFLUENZA (#1) 2025 03/13/2019, 03/03, 02/01/2016, Additional history exists PNEUMOCOCCAL VACCINE Completed 10/30/2014, 04/22/2013, 03/19/2009, Additional history exists Care Teams Director Of Student Services Relationship Specialty Start Date End Date Star Norton MD [address] [place] [address] PCP - General Internal Medicine 06/13/23 Jose Orozco MD [address] [address] Specialist Cardiology 06/01/23 Jan Segundo [address] [address] Obstetrics/Gynecology 06/12/23 Natali Phillip MD [address] [place] [address] Specialist Pulmonology 06/12/23 Horacio Juarez MD [address] [place] [address] Gastroenterology 06/12/23 Damir Fried MD [address] [place] [address] Rheumatology 06/12/23 Anjum Brody [address] [place] [address] Ophthalmology 06/12/23 Erika Souza PA-C [address] [place], [place] Specialist Cardiology 08/09/23
--- OUTSIDE RECORDS SUMMARY | 2025-02-28 13:48 | XMS_ITS | Encounter Summary ---
Author Organization [facility] Address [address] [place] [address] Care Team Providers Care Mechanical Spreader Operator Name Role Phone Terrance Buitrago MD Primary Care Provider U Jsoe aJved MD Unavailable [phone] Jan Segundo Unavailable Unavailable Natali Phillip MD Unavailable Horacio Juarez MD Unavailable Unavailab Damir Haas MD Unavailable UnavailAnjum Newsome Unavailable Unavailable Star Norton MD Primary Care Provider Unavail able Erika Souza PA-C Unavailable Encounter Details Date Type Department Care Team Description 04/26/2018 SCAN Medical Records [address] [place] [id number] Abstract, Provider Social History Tobacco Use Types Packs/Day Years Used Date Smoking Tobacco: Former Cigarettes 1 Q uit: 1980 Smokeless Tobacco: Never Alcohol Use Standard Drinks/Week Comments No 0 (1 standard drink = 0.6 oz pur e alcohol) Sex Assigned at Date Recorded Not on file documented as of this encounter Plan of Treatment Not on file documented as of this encounter Procedures Procedure Name Priority Date/Time Associated Diagnosis Comments OUTSIDE LAB Routine 04/26/2018 documented in this encounter Results * OUTSIDE LAB (04/26/2018) Provider Default LAB documented in this encounter Visit Diagnoses Not on filedocumented in this encounter Care Teams Mechanical Spreader Operator Relationship Specialty Start Date End Date Terrance Buitrago MD PCP - General Internal Medicine 08/01/1706/02 Star Norton MD [address] [place] [address] PCP - General Internal Medicine 06/13/23 Jose Orozco MD [address] [address] Specialist Cardiology 06/01/23 Jan Segundo [address] [address] Obstetrics/Gynecology 06/12/23 Natali Phillip MD [address] [place] [address] Specialist Pulmonology 06/12/23 Horacio Juarez MD [address] [place] [address] Gastroenterology 06/12/23 Damir Fried MD [address] [place] [address] Rheumatology 06/12/23 Anjum Brody [address] [place] [address] Ophthalmology 06/12/23 Erika Souza PA-C [address] [place] [address] Specialist Cardiology 08/09/23 documented as of this encounter
--- OUTSIDE RECORDS SUMMARY | 2025-02-28 13:48 | XMS_ITS | Encounter Summary ---
Author Organization [facility] Address [address] [place] [address] Care Team Providers Care Sports Team Manager Name Role Phone Terrance Buitrago MD Primary Care Provider U Jose Javed MD Unavailable [phone] Jan Segundo Unavailable Unavailable Natali Phillip MD Unavailable Horacio Juarez MD Unavailable Unavailab Damir Haas MD Unavailable UnavailAnjum Newsome Unavailable Unavailable Star Norton MD Primary Care Provider Unavail able Erika Souza PA-C Unavailable Encounter Details Date Type Department Care Team Description 06/18/2019 Orders Only Medical Records [address] [place] [address] Natali Phillip MD [address] [place] [address] Social History Tobacco Use Types Packs/Day Years [...] Date/Time Associated Diagnosis Comments OUTSIDE LAB Routine 06/14/2019 documented in this encounter Results * OUTSIDE LAB (06/14/2019) Natali Phillip MD LAB documented in this encounter Visit Diagnoses Not on filedocumented in this encounter Care Teams Sports Team Manager Relationship Specialty Start Date End Date Terrance Buitrago MD PCP - General Internal Medicine 08/01/1706/02 Star Nroton MD [address] [place] [address] PCP - General Internal Medicine 06/13/23 Jose Orozco MD [address] [address] Specialist Cardiology 06/01/23 Jan Segundo [address] [address] Obstetrics/Gynecology 06/12/23 Natali Phillip MD [address] [place] [address] Specialist Pulmonology 06/12/23 Horacio Juarez MD [address] [place] [address] Gastroenterology 06/12/23 Damir Fried MD [address] [place] [address] Rheumatology 06/12/23 Anjum Brody [address] [place] [address] Ophthalmology 06/12/23 Erika Souza PA-C [address] [place] [address] Specialist Cardiology 08/09/23 documented as of this encounter
--- OUTSIDE RECORDS SUMMARY | 2025-02-28 13:48 | XMS_ITS | Encounter Summary ---
Author Organization [facility] Address [address] [place] [address] Care Team Providers Care Research Methods Instructor Name Role Phone Terrance Buitrago MD Primary Care Provider U Jose Javed MD Unavailable [phone] Jan Segundo Unavailable Unavailable aNtali Phillip MD Unavailable Horacio Juarez MD Unavailable Unavailab Damir Haas MD Unavailable UnavailAnjum Newsome Unavailable Unavailable Star Norton MD Primary Care Provider Unavail able Erika Souza PA-C Unavailable Encounter Details Date Type Department Care Team Description 04/26/2019 Orders Only Medical Records [address] [place] [id number] Abstract, Provider Moderate persistent asthma, unspecified whether complicated; Mycobacterium avium complex (HCC) Social History Tobacco Use Types Packs/Day Years [...] Procedure Name Priority Date/Time Associated Diagnosis Comments CAT SCAN OF CHEST NO CONTRAST Routine 04/25/2019 Moderate persistent asthma, unspecified whether complicated Mycobacterium avium complex (HCC) documented in this encounter Results * CAT SCAN OF CHEST NO CONTRAST (04/25/2019) Natali Phillip MD CT SCANS documented in this encounter Visit Diagnoses Diagnosis Moderate persistent asthma, unspecified whether complicated Mycobacterium avium complex (HCC) Other specified mycobacterial diseases documented in this encounter Care Teams Research Methods Instructor Relationship Specialty Start Date End Date Terrance Buitrago MD PCP - General Internal Medicine 08/01/1706/02 Star Norton MD [address] [place] [address] PCP - General Internal Medicine 06/13/23 Jose Orozco MD [address] [address] Specialist Cardiology 06/01/23 Jan Segundo [address] [address] Obstetrics/Gynecology 06/12/23 Natali Phillip MD [address] [place] [address] Specialist Pulmonology 06/12/23 Horacio Juarez MD [address] [place] [address] Gastroenterology 06/12/23 Damir Fried MD [address] [place] [address] Rheumatology 06/12/23 Anjum Brody [address] [place] [address] Ophthalmology 06/12/23 Eriak Souza PA-C [address] [place], [place] Specialist Cardiology 08/09/23 documented as of this encounter
--- OUTSIDE RECORDS SUMMARY | 2025-02-28 13:48 | XMS_ITS | Encounter Summary ---
Author Organization [facility] Address [address] [place] [address] Care Team Providers Care Housefellow Name Role Phone Terrance Buitrago MD Primary Care Provider U Jose Javed MD Unavailable [phone] Jan Segundo Unavailable Unavailable Natali Phillip MD Unavailable Horacio Juarez MD Unavailable Unavailab Damir Haas MD Unavailable UnavailAnjum Newsome Unavailable Unavailable Star Norton MD Primary Care Provider Unavail able Erika Souza PA-C Unavailable Encounter Details Date Type Department Care Team Description 08/06/2018 Old Medical Records Medical Records [address] [place] [id number] Abstract, Provider Social History Tobacco Use Types [...] on filedocumented in this encounter Care Teams Housefellow Relationship Specialty Start Date End Date Terrance Buitrago MD PCP - General Internal Medicine 08/01/1706/02 Star Norton MD [address] [place] [address] PCP - General Internal Medicine 06/13/23 Jose Orozco MD [address] [facility] [address] [place] [address] Specialist Cardiology 06/01/23 Jan Segundo. 300 [facility] [address] [place] [address] Obstetrics/Gynecology 06/12/23 Natali Phillip MD [address] [place] [address] Specialist Pulmonology 06/12/23 Horacio Juarez MD [address] [place] [address] Gastroenterology 06/12/23 Damir Fried MD [address] [place] [address] Rheumatology 06/12/23 Anjum Brody [address] [place] [address] Ophthalmology 06/12/23 Erika Souza PA-C [address] [place] [address] Specialist Cardiology 08/09/23 documented as of this encounter
--- OUTSIDE RECORDS SUMMARY | 2025-02-28 13:48 | XMS_ITS | Encounter Summary ---
Author Organization [facility] Address [address] [place] [address] Care Team Providers Care Material Controller Name Role Phone Terrance Buitrago MD Primary Care Provider U Jose Javed MD Unavailable [phone] Jan Segundo Unavailable Unavailable Natali Phillip MD Unavailable Horacio Juarez MD Unavailable Unavailab Damir Haas MD Unavailable UnavailAnjum Newsome Unavailable Unavailable Star Norton MD Primary Care Provider Unavail able Erika Souza PA-C Unavailable Reason for Visit * Reason Onset Date Comments refill request 06/16/2021 Encounter Details Date Type Department Care Team Description 06/16/2021 Refill Pulmonology - [place] 175 [facility] [address] [place] [address] Natali Phillip MD 175 [place] [address] refill request Social History Tobacco Use Types Packs/Day Years Used Date Smoking Tobacco: Former Cigarettes 1 Q uit: 1979 Smokeless Tobacco: Never Alcohol Use Standard Drinks/Week Comments No 0 (1 standard drink = 0.6 oz pur e alcohol) Sex Assigned at Date Recorded Not on file COVID-19 Exposure Response Date Recorded In the last month, have you been in contact with someone who was confirmed or suspected to have Coronavirus / COVID-19? No / Unsure 06/08/2021 2:44 PM EST documented as of this encounter Miscellaneous Notes * Telephone Encounter - Corina Chase - 06/16/2021 11:15 AM EST JONY 06/08/2021 documented in this encounter Plan of Treatment Not on file documented as of this encounter Visit Diagnoses Diagnosis 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 Chronic obstructive pulmonary disease, unspecified COPD type (HCC) documented in this encounter Care Teams Material Controller Relationship Specialty Start Date End Date Terrance Buitrago MD PCP - General Internal Medicine 08/01/1706/02 Star Norton MD 175 [place] [address] PCP - General Internal Medicine 06/13/23 Jose Orozco MD [address] [address] Specialist Cardiology 06/01/23 Jan Segundo [address] [address] Obstetrics/Gynecology 06/12/23 Natali Phillip MD [address] [place], [place] Specialist Pulmonology 06/12/23 Horacio Juarez MD [address] [place], [place] Gastroenterology 06/12/23 Damir Fried MD 175 [place] [address] Rheumatology 06/12/23 Anjum Brody [address] [place] [address] Ophthalmology 06/12/23 Erika Souza PA-C [address] [place], [place] Specialist Cardiology 08/09/23 documented as of this encounter
--- OUTSIDE RECORDS SUMMARY | 2025-02-28 13:48 | XMS_ITS | Encounter Summary ---
Author Organization [facility] Address [address] [place] [address] Care Team Providers Care Terrestrial Ecologist Name Role Phone Terrance Buitrago MD Primary Care Provider U Jose Javed MD Unavailable [phone] Jan Segundo Unavailable Unavailable Natali Phillip MD Unavailable Horacio Juarez MD Unavailable Unavailab Damir Haas MD Unavailable UnavailAnjum Newsome Unavailable Unavailable Star Norton MD Primary Care Provider Unavail able Erika Souza PA-C Unavailable Reason for Visit * Reason Comments E-prescribe Rx Request Encounter Details Date Type Department Care Team Description 08/28/2020 Refill Pulmonology - [place] 175 [facility] [address] [place] [address] Natali Phillip MD 175 [place] [address] E-prescribe Rx Request Social History Tobacco Use Types Packs/Day Years Used Date Smoking Tobacco: Former Cigarettes 1 Q uit: 1979 Smokeless Tobacco: Never Alcohol Use Standard Drinks/Week Comments No 0 (1 standard drink = 0.6 oz pur e alcohol) Sex Assigned at Date Recorded Not on file documented as of this encounter Miscellaneous Notes * Telephone Encounter - Arnel Rausch - 08/28/2020 4:54 PM EST [id number] documented in this encounter Plan of Treatment Not on file documented as of this encounter Visit Diagnoses Diagnosis LACI (mycobacterium avium-intracellulare) ([facility]) Pulmonary diseases due to other mycobacteria documented in this encounter Care Teams Terrestrial Ecologist Relationship Specialty Start Date End Date Terrance Buitrago MD PCP - General Internal Medicine 08/01/1706/02 Star Norton MD 175 [place] [address] PCP - General Internal Medicine 06/13/23 Jose Orozco MD [address] [address] Specialist Cardiology 06/01/23 Jan Segundo [address] [address] Obstetrics/Gynecology 06/12/23 Natali Phillip MD [address] [place], [place] Specialist Pulmonology 06/12/23 Horacio Juarez MD 175 [place] [address] Gastroenterology 06/12/23 Damir Fried MD 175 [place] [address] Rheumatology 06/12/23 Anjum Brody [address] [place] [address] Ophthalmology 06/12/23 Erika Souza PA-C [address] [place], [place] Specialist Cardiology 08/09/23 documented as of this encounter
--- OUTSIDE RECORDS SUMMARY | 2025-02-28 13:48 | XMS_ITS | Encounter Summary ---
Author Organization [facility] Address [address] [place] [address] Care Team Providers Care Garment Supervisor Name Role Phone Terrance Buitrago MD Primary Care Provider U Jose Javed MD Unavailable [phone] Jan Segundo Unavailable Unavailable Natali Phillip MD Unavailable Horacio Juarez MD Unavailable Unavailab Damir Haas MD Unavailable UnavailAnjum Newsome Unavailable Unavailable Star Norton MD Primary Care Provider Unavail able Erika Souza PA-C Unavailable Reason for Visit * Reason Onset Date Comments medication problems 07/26/2019 Encounter Details Date Type Department Care Team Description 07/26/2019 Telephone Pulmonology - [place] 175 [facility] [address] [place] [address] Natali Phillip MD 175 [place] [address] medication problems Social History Tobacco Use Types Packs/Day Years Used Date Smoking Tobacco: Former Cigarettes 1 Q uit: 1980 Smokeless Tobacco: Never Alcohol Use Standard Drinks/Week Comments No 0 (1 standard drink = 0.6 oz pur e alcohol) Sex Assigned at Date Recorded Not on file documented as of this encounter Miscellaneous Notes * Telephone Encounter - Natali Phillip MD - 07/26/2019 5:55 PM EST Spoke with her- will continue med for now * Telephone Encounter - Marylou Del Cid - 07/26/2019 10:44 AM EST What is the name of the medication patient is having a problem with?: rifampin (RIFADIN) 300 MG capsule ethambutol (MYAMBUTOL) 400 MG tablet What is the problem?: patient called and said she was given these medication for Mycobacterium avium-intracellulare infection, but she believe one or both of these medication are giving her allergic reaction. After taking them she has itching hands and lower back. Patient would like to know what should she do or to received a call back. Please advise. Is the patient calling about the problem? YES If the patient is not the caller who is? N/a Is this a NEW medication?: YES How long has the patient been taking this medication? Unknown Who prescribed this medication for the patient? Dr Phillip Who is patients PCP?: Dr. Terrance Buitrago Payor: MEDICARE-[employer] / Plan[place] / Product Type: MEDICARE [id number] documented in this encounter Plan of Treatment Not on file documented as of this encounter Visit Diagnoses Not on filedocumented in this encounter Care Teams Garment Supervisor Relationship Specialty Start Date End Date Terrance Buitrago MD PCP - General Internal Medicine 08/01/1706/02 Star Norton MD [address] [place] [address] PCP - General Internal Medicine 06/13/23 Jose Orozco MD [address] [address] Specialist Cardiology 06/01/23 Jan Segundo [address] [address] Obstetrics/Gynecology 06/12/23 Natali Phillip MD [address] [place] [address] Specialist Pulmonology 06/12/23 Horacio Juarez MD 175 [place] [address] Gastroenterology 06/12/23 Damir Fried MD 175 [place] [address] Rheumatology 06/12/23 Anjum Brody [address] [place] [address] Ophthalmology 06/12/23 Erika Souza PA-C [address] [place] [address] Specialist Cardiology 08/09/23 documented as of this encounter
--- OUTSIDE RECORDS SUMMARY | 2025-02-28 13:48 | XMS_ITS | Encounter Summary ---
Author Organization [facility] Address [address] [place] [address] Care Team Providers Care Downstream Biomanufacturing Technician Name Role Phone Terrance Buitrago MD Primary Care Provider U Jose Javed MD Unavailable [phone] Jan Segundo Unavailable Unavailable Natali Phillip MD Unavailable Horacio Juarez MD Unavailable Unavailab Damir Haas MD Unavailable UnavailAnjum Newsome Unavailable Unavailable Star Norton MD Primary Care Provider Unavail able Erika Souza PA-C Unavailable Encounter Details Date Type Department Care Team Description 11/06/2021 [facility] Medical Records [address] [place] [id number] [place] [address] Social History Tobacco Use Types Packs/Day Years [...] Name Priority Date/Time Associated Diagnosis Comments OUTSIDE EKG Routine 11/06/2021 OUTSIDE PLAIN FILM Routine 11/06/2021 OUTSIDE LAB Routine 11/06/2021 OUTSIDE LAB Routine 11/06/2021 OUTSIDE LAB Routine 11/06/2021 documented in this encounter Results * OUTSIDE PLAIN FILM (11/06/2021) Provider Default RADIOLOGY * OUTSIDE LAB (11/06/2021) Provider Default LAB * OUTSIDE LAB (11/06/2021) Provider Default LAB * OUTSIDE LAB (11/06/2021) Provider Default LAB * OUTSIDE EKG (11/06/2021) Provider Default CARDIOLOGY documented in this encounter Visit Diagnoses Not on filedocumented in this encounter Care Teams Downstream Biomanufacturing Technician Relationship Specialty Start Date End Date Terrance Buitrago MD PCP - General Internal Medicine 08/01/1706/02 Star Norton MD [address] [place] [address] PCP - General Internal Medicine 06/13/23 Jose Orozco MD [address] [address] Specialist Cardiology 06/01/23 Jan Segundo [address] [address] Obstetrics/Gynecology 06/12/23 Natali Phillip MD [address] [place], [place] Specialist Pulmonology 06/12/23 Horacio Juarez MD [address] [place] Gastroenterology 06/12/23 Damir Fried MD [address] [place] Rheumatology 06/12/23 Anjum Brody [address] [place] [address] Ophthalmology 06/12/23 Erika Souza PA-C [address] [place], [place] Specialist Cardiology 08/09/23 documented as of this encounter
--- OUTSIDE RECORDS SUMMARY | 2025-02-28 13:48 | XMS_ITS | Encounter Summary ---
Author Organization [facility] Address [address] [place] [address] Care Team Providers Care Rock Loader Name Role Phone Terrance Buitrago MD Primary Care Provider U Jose Javed MD Unavailable [phone] Jan Segundo Unavailable Unavailable Natali Phillip MD Unavailable Horacio Juarez MD Unavailable Unavailab Damir Haas MD Unavailable UnavailAnjum Newsome Unavailable Unavailable Star Norton MD Primary Care Provider Unavail able Erika Souza PA-C Unavailable Encounter Details Date Type Department Care Team Description 06/19/2019 Orders Only Medical Records [address] [place] [address] Natali Phillip MD [address] [place] [address] Social History Tobacco Use Types Packs/Day Years [...] Name Priority Date/Time Associated Diagnosis Comments OUTSIDE PATHOLOGY Routine 06/14/2019 documented in this encounter Results * OUTSIDE PATHOLOGY (06/14/2019) Natali Phillip MD OUTSIDE LAB documented in this encounter Visit Diagnoses Not on filedocumented in this encounter Care Teams Rock Loader Relationship Specialty Start Date End Date Terrance Buitrago MD PCP - General Internal Medicine 08/01/1706/02 Star Norton MD [address] [place] [address] PCP - General Internal Medicine 06/13/23 Jose Orozco MD [address] [address] Specialist Cardiology 06/01/23 Jan Segundo [address] [address] Obstetrics/Gynecology 06/12/23 Natali Phillip MD 175 [place] [address] Specialist Pulmonology 06/12/23 Horacio Juarez MD 175 [place] [address] Gastroenterology 06/12/23 Damir Fried MD 175 [place] [address] Rheumatology 06/12/23 Anjum Brody 175 [place] [address] Ophthalmology 06/12/23 Erika Souza PA-C [address] [place], [place] Specialist Cardiology 08/09/23 documented as of this encounter
--- OUTSIDE RECORDS SUMMARY | 2025-02-28 13:48 | XMS_ITS | Encounter Summary ---
Author Organization [facility] Address [address] [place] [address] Care Team Providers Care Group Sales Representative Name Role Phone Terrance Buitrago MD Primary Care Provider U Jose Javed MD Unavailable [phone] Jan Segundo Unavailable Unavailable Natali Phillip MD Unavailable Horacio Juarez MD Unavailable Unavailab Damir Haas MD Unavailable UnavailAnjum Newsome Unavailable Unavailable Star Norton MD Primary Care Provider Unavail able Erika Souza PA-C Unavailable Reason for Visit * Reason Onset Date Comments refill request 12/17/2020 Encounter Details Date Type Department Care Team Description 12/17/2020 Refill Pulmonology - [place] 175 [facility] [address] [place] [address] Natali Phillip MD [address] [place] [address] refill request Social History Tobacco Use Types Packs/Day Years Used Date Smoking Tobacco: Former Cigarettes 1 Q uit: 1980 Smokeless Tobacco: Never Alcohol Use Standard Drinks/Week Comments No 0 (1 standard drink = 0.6 oz pur e alcohol) Sex Assigned at Date Recorded Not on file documented as of this encounter Miscellaneous Notes * Telephone Encounter - Naty Malagon - 12/17/2020 9:17 AM EDT Lee 3/23/12/22/20 documented in this encounter Plan of Treatment Not on file documented as of this encounter Visit Diagnoses Diagnosis 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 Chronic obstructive pulmonary disease, unspecified COPD type (HCC) documented in this encounter Care Teams Group Sales Representative Relationship Specialty Start Date End Date Terrance Buitrago MD PCP - General Internal Medicine 08/01/1706/02 Star Norton MD [address] [place] [address] PCP - General Internal Medicine 06/13/23 Jose Orozco MD [address] [address] Specialist Cardiology 06/01/23 Jan Segundo [address] [address] Obstetrics/Gynecology 06/12/23 Natali Phillip MD [address] [place] [address] Specialist Pulmonology 06/12/23 Horacio Juarez MD [address] [place] [address] Gastroenterology 06/12/23 Damir Fried MD 175 [place] [address] Rheumatology 06/12/23 Anjum Brody [address] [place] [address] Ophthalmology 06/12/23 Erika Souza PA-C [address] [place], [place] Specialist Cardiology 08/09/23 documented as of this encounter
--- OUTSIDE RECORDS SUMMARY | 2025-02-28 13:48 | XMS_ITS | Encounter Summary ---
Author Organization [facility] Address [address] [place] [address] Care Team Providers Care Interpretative Dancer Name Role Phone Terrance Buitrago MD Primary Care Provider U Jose Javed MD Unavailable [phone] Jan Segundo Unavailable Unavailable Natali Phillip MD Unavailable Horacio Juarez MD Unavailable Unavailab Damir Haas MD Unavailable UnavailAnjum Newsome Unavailable Unavailable Star Norton MD Primary Care Provider Unavail able Erika Souza PA-C Unavailable Encounter Details Date Type Department Care Team Description 04/25/2018 [facility] Medical Records [address] [place] [id number] Abstract, Provider Social History Tobacco Use Types [...] Date/Time Associated Diagnosis Comments OUTSIDE LAB Routine 04/25/2018 documented in this encounter Results * OUTSIDE LAB (04/25/2018) Provider Default LAB documented in this encounter Visit Diagnoses Not on filedocumented in this encounter Care Teams Interpretative Dancer Relationship Specialty Start Date End Date Terrance Buitrago MD PCP - General Internal Medicine 08/01/1706/02 Star Norton MD [address] [place] [address] PCP - General Internal Medicine 06/13/23 Jose Orozoc MD [address] [address] Specialist Cardiology 06/01/23 Jan Segundo [address] [address] Obstetrics/Gynecology 06/12/23 Natali Phillip MD [address] [place] [address] Specialist Pulmonology 06/12/23 Horacio Juarez MD [address] [place] [address] Gastroenterology 06/12/23 Damir Fried MD [address] [place] [address] Rheumatology 06/12/23 Anjum Brody [address] [place] [address] Ophthalmology 06/12/23 Erika Souza PA-C [address] [place] [address] Specialist Cardiology 08/09/23 documented as of this encounter
--- OUTSIDE RECORDS SUMMARY | 2025-02-28 13:48 | XMS_ITS | Encounter Summary ---
Author Organization [facility] Address [address] [place] [address] Care Team Providers Care Online Publisher Name Role Phone Terrance Buitrago MD Primary Care Provider U Jose Javed MD Unavailable [phone] Jan Segundo Unavailable Unavailable Natali Phillip MD Unavailable Horacio Juarez MD Unavailable Unavailab Damir Haas MD Unavailable UnavailAnjum Newsome Unavailable Unavailable Star Norton MD Primary Care Provider Unavail able Erika Souza PA-C Unavailable Encounter Details Date Type Department Care Team Description 05/16/2019 Telephone Pulmonology - [place] 175 [facility] [address] [place] [phone] Natali Phillip MD [address] [place] [address] Social History Tobacco Use Types Packs/Day Years Used Date Smoking Tobacco: Former Cigarettes 1 Q uit: 1980 Smokeless Tobacco: Never Alcohol Use Standard Drinks/Week Comments No 0 (1 standard drink = 0.6 oz pur e alcohol) Sex Assigned at Date Recorded Not on file documented as of this encounter Miscellaneous Notes * Telephone Encounter - Natali Phillip MD - 05/16/2019 9:42 AM EST Please give pt an apt to go over ct results at 245pm. Pt aware documented in this encounter Plan of Treatment Not on file documented as of this encounter Visit Diagnoses Not on filedocumented in this encounter Care Teams Online Publisher Relationship Specialty Start Date End Date Terrance Buitrago MD PCP - General Internal Medicine 08/01/1706/02 Star Norton MD [address] [place] [address] PCP - General Internal Medicine 06/13/23 Jose Orozco MD [address] [address] Specialist Cardiology 06/01/23 Jan Segundo [address] [address] Obstetrics/Gynecology 06/12/23 Natali Phillip MD [address] [place] [address] Specialist Pulmonology 06/12/23 Horacio Juarez MD [address] [place] [address] Gastroenterology 06/12/23 Damir Fried MD [address] [place] [address] Rheumatology 06/12/23 Anjum Brody [address] [place] [address] Ophthalmology 06/12/23 Erika Souza PA-C [address] [place] [address] Specialist Cardiology 08/09/23 documented as of this encounter
--- OUTSIDE RECORDS SUMMARY | 2025-02-28 13:48 | XMS_ITS | Encounter Summary ---
Author Organization [facility] Address [address] [place] [address] Care Team Providers Care Refrigerator Repairman Name Role Phone Jose Orozco MD Unavailable [phone] Jan Segundo Unavailable Unavailable Natali Phillip MD Unavailable Horacio Juarez MD Unavailable Unavailab Damir Haas MD Unavailable UnavailAnjum Newsome Unavailable Unavailable Star Norton MD Primary Care Provider Unavail able Erika Souza PA-C Unavailable Encounter Details Date Type Department Care Team Description 11/30/2023 Orders Only Cardio PVC POC [address] [address] Jose Orozco MD [address] [facility] [address] [place] [address] Social History Tobacco Use Types Packs/Day Years [...] Date/Time Associated Diagnosis Comments OUTSIDE EKG Routine 11/30/2023 documented in this encounter Results * OUTSIDE EKG (11/30/2023) Jose Orozco MD CARDIOLOGY documented in this encounter Visit Diagnoses Not on filedocumented in this encounter Care Teams Refrigerator Repairman Relationship Specialty Start Date End Date Star Norton MD [address] [place] [address] PCP - General Internal Medicine 06/13/23 Jose Orozco MD [address] [address] Specialist Cardiology 06/01/23 Jan Segundo [address] [address] Obstetrics/Gynecology 06/12/23 Natali Phillip MD [address] [place] [address] Specialist Pulmonology 06/12/23 Horacio Juarez MD [address] [place] [address] Gastroenterology 06/12/23 Damir Fried MD 175 [place] [address] Rheumatology 06/12/23 Anjum Brody [address] [place] [address] Ophthalmology 06/12/23 Erika Souza PA-C [address] [place] [address] Specialist Cardiology 08/09/23 documented as of this encounter
--- OUTSIDE RECORDS SUMMARY | 2025-02-28 13:48 | XMS_ITS | Encounter Summary ---
Author Organization [facility] Address [address] [place] [address] Care Team Providers Care Product Applications Engineer Name Role Phone Terrance Buitrago MD Primary Care Provider U Jose Javed MD Unavailable Jan Segundo Unavailable Unavailable Natali Phillip MD Unavailable Horacio Juarez MD Unavailable Unavailab Damir Haas MD Unavailable UnavailAnjum Newsome Unavailable Unavailable Star Norton MD Primary Care Provider Unavail able Erika Souza PA-C Unavailable Reason for Visit * Reason Onset Date Comments Orders Call 05/02/2018 Encounter Details Date Type Department Care Team Description 05/02/2018 Telephone Pulmonology [address] [place] [address] Richardson Johnson MD Orders Call Social History Tobacco Use Types Packs/Day Years Used Date Smoking Tobacco: Former Cigarettes 1 Q uit: 1980 Smokeless Tobacco: Never Alcohol Use Standard Drinks/Week Comments No 0 (1 standard drink = 0.6 oz pur e alcohol) Sex Assigned at Date Recorded Not on file documented as of this encounter Miscellaneous Notes * Telephone Encounter - Natali Phillip MD - 05/07/2018 5:39 PM EST done * Telephone Encounter - Diego Peterson - 05/02/2018 4:[address]. Phillip. I will route it to Dr. Phillip. * Telephone Encounter - Alexa Rogers M.A. - 05/02/2018 4:08 PM EDT Pt needs to contact the office that did the Bronch and they need to order the CT * Telephone Encounter - Richardson Johnson MD - 05/02/2018 3:27 PM EDT Whoever did bronchoscopy and wants CT scan can put the order in. * Telephone Encounter - Alexa Rogers M.A. - 05/02/2018 2:24 PM EDT Pleae advise if needs Then put order in I will contact the pt thanks * Telephone Encounter - Diego Peterson - 05/02/2018 1:52 PM EDT Patient is stating that she had a bronchoscopy done last week some time. She was told that a CT Scan needed to be ordered and have it done within 6 weeks. I don't see orders from CT Scan and patient is calling to check on status of her getting call to schedule. documented in this encounter Plan of Treatment Not on file documented as of this encounter Visit Diagnoses Diagnosis Pulmonary nodule- Primary Solitary pulmonary nodule Lymphadenopathy Enlargement of lymph nodes documented in this encounter Care Teams Product Applications Engineer Relationship Specialty Start Date End Date Terrance Buitrago MD PCP - General Internal Medicine 08/01/1706/02 Star Norton MD [address] [place] [address] PCP - General Internal Medicine 06/13/23 Jose Orozco MD 300 [facility] [address] [place] [address] Specialist Cardiology 06/01/23 Jan Segundo 300 [facility] [address] [place] [address] Obstetrics/Gynecology 06/12/23 Natali Phillip MD 175 [place] [address] Specialist Pulmonology 06/12/23 Horacio Juarez MD [address] [place] [address] Gastroenterology 06/12/23 Damir Fried MD 175 [place] [address] Rheumatology 06/12/23 Anjum Brody [address] [place] [address] Ophthalmology 06/12/23 Erika Souza PA-C [address] [place] [address] Specialist Cardiology 08/09/23 documented as of this encounter
--- OUTSIDE RECORDS SUMMARY | 2025-02-28 13:48 | XMS_ITS | Encounter Summary ---
Author Organization [facility] Address [address] [place] [address] Care Team Providers Care Repairer Sash And Door Name Role Phone Jose Orozco MD Unavailable [phone] Jan Segundo Unavailable Unavailable Natali Phillip MD Unavailable Horacio Juarez MD Unavailable Unavailab Damir Haas MD Unavailable UnavailAnjum Newsome Unavailable Unavailable Star Norton MD Primary Care Provider Unavail able Erika Souza PA-C Unavailable Reason for Visit * Reason Comments E-prescribe Rx Request Encounter Details Date Type Department Care Team Description 01/03/2024 Refill Pulmonology - [place] 175 [facility] [address] [place] [id number] Natali Phillip MD 175 [place] [address] E-prescribe Rx Request Social History Tobacco Use Types Packs/Day Years Used Date Smoking Tobacco: Former Cigarettes 1 Q uit: 1980 Smokeless Tobacco: Never Alcohol Use Standard Drinks/Week Comments No 0 (1 standard drink = 0.6 oz pur e alcohol) Sex Assigned at Date Recorded Not on file documented as of this encounter Miscellaneous Notes * Telephone Encounter - Tesfaye Harrison - 01/03/2024 11:17 AM EDT NOV JONY to schedule JONY 06/14/23 documented in this encounter Plan of Treatment Not on file documented as of this encounter Visit Diagnoses Diagnosis ANNIE (obstructive sleep apnea) Obstructive sleep apnea (adult) (pediatric) 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 Bronchiectasis without complication (HCC) Bronchiectasis without acute exacerbation documented in this encounter Care Teams Repairer Sash And Door Relationship Specialty Start Date End Date Star Norton MD [address] [place] [address] PCP - General Internal Medicine 06/13/23 Jose Orozco MD [address] [address] Specialist Cardiology 06/01/23 Jan eSgundo [address] [address] Obstetrics/Gynecology 06/12/23 Natali Phillip MD [address] [place] [address] Specialist Pulmonology 06/12/23 Horacio Juarez MD [address] [place] [address] Gastroenterology 06/12/23 Damir Fried MD [address] [place] [address] Rheumatology 06/12/23 Anjum Brody [address] [place] [address] Ophthalmology 06/12/23 Erika Souza PA-C 175 [place] [address] Specialist Cardiology 08/09/23 documented as of this encounter
--- OUTSIDE RECORDS SUMMARY | 2025-02-28 13:49 | XMS_ITS | Encounter Summary ---
Author Organization [facility] Address [address] [place] [address] Care Team Providers Care Fund Raiser Name Role Phone Jose Orozco MD Unavailable [phone] Jan Segundo Unavailable Unavailable Natali Phillip MD Unavailable Horacio Juarez MD Unavailable Unavailab Damir Haas MD Unavailable UnavailAnjum Newsome Unavailable Unavailable Star Norton MD Primary Care Provider Unavail able Erika Souza PA-C Unavailable Encounter Details Date Type Department Care Team Description 07/05/2023 SCAN Medical Records [address] [place] [address] Abstract, Provider Social History Tobacco Use Types Packs/Day Years Used Date Smoking Tobacco: Former Cigarettes 1 Q uit: 1980 Smokeless Tobacco: Never Alcohol Use Standard Drinks/Week Comments No 0 (1 standard drink = 0.6 oz pur e alcohol) Sex Assigned at Date Recorded Not on file documented as of this encounter Progress Notes * Nuvia Craven - 07/10/2023 3:24 PM EST Mailed letter documented in this encounter Plan of Treatment Not on file documented as of this encounter Procedures Procedure Name Priority Date/Time Associated Diagnosis Comments OUTSIDE LAB Routine 07/05/2023 documented in this encounter Results * OUTSIDE LAB (07/05/2023) Provider Default LAB documented in this encounter Visit Diagnoses Not on filedocumented in this encounter Care Teams Fund Raiser Relationship Specialty Start Date End Date Star Norton MD [address] [place] [address] PCP - General Internal Medicine 06/13/23 Jose Orozco MD [address] [address] Specialist Cardiology 06/01/23 Jan Segundo [address] [address] Obstetrics/Gynecology 06/12/23 Natali Phillip MD [address] [place], [place] Specialist Pulmonology 06/12/23 Horacio Juarez MD 175 [place] [address] Gastroenterology 06/12/23 Damir Fried MD [address] [place] [address] Rheumatology 06/12/23 Anjum Brody [address] [place] [address] Ophthalmology 06/12/23 Erika Souza PA-C [address] [place], [place] Specialist Cardiology 08/09/23 documented as of this encounter
--- OUTSIDE RECORDS SUMMARY | 2025-02-28 13:49 | XMS_ITS | Encounter Summary ---
Author Organization [facility] Address [address] [place] [address] Care Team Providers Care Cylindrical Mixer Name Role Phone Terrance Buitrago MD Primary Care Provider U Jose Javed MD Unavailable [phone] Jan Segundo Unavailable Unavailable Natali Phillip MD Unavailable Horacio Juarez MD Unavailable Unavailab Damir Haas MD Unavailable UnavailAnjum Newsome Unavailable Unavailable Star Norton MD Primary Care Provider Unavail able Erika Souza PA-C Unavailable Reason for Visit * Reason Comments E-prescribe Rx Request Encounter Details Date Type Department Care Team Description 04/08/2020 Refill Pulmonology - [place] 175 [facility] [address] [place] [address] Natali Phillip MD [address] [place] [address] E-prescribe Rx Request Social History [...] have Coronavirus / COVID-19? No / Unsure 03/17/2020 1:14 PM EDT documented as of this encounter Miscellaneous Notes * Telephone Encounter - Carmella Macdonald - 04/08/2020 8:31 AM EDT - 03.17.2020May - 06.18.2020 Refills - 4 documented in this encounter Plan of Treatment Not on file documented as of this encounter Visit Diagnoses Not on filedocumented in this encounter Care Teams Cylindrical Mixer Relationship Specialty Start Date End Date Terrance Buitrago MD PCP - General Internal Medicine 08/01/1706/02 Star Norton MD [address] [place] [address] PCP - General Internal Medicine 06/13/23 Jose Orozco MD [address] [address] Specialist Cardiology 06/01/23 Jan Segundo [address] [address] Obstetrics/Gynecology 06/12/23 Natali Phillip MD [address] [place] [address] Specialist Pulmonology 06/12/23 Horacio Juarez MD [address] [place] [address] Gastroenterology 06/12/23 Damir Fried MD [address] [place] [address] Rheumatology 06/12/23 Anjum Brody [address] [place] [address] Ophthalmology 06/12/23 Erika Souza PA-C [address] [place], [place] Specialist Cardiology 08/09/23 documented as of this encounter
--- OUTSIDE RECORDS SUMMARY | 2025-02-28 13:49 | XMS_ITS | Encounter Summary ---
Author Organization [facility] Address [address] [place] [address] Care Team Providers Care Tafe Lecturer Name Role Phone Terrance Buitrago MD Primary Care Provider U Jose Javed MD Unavailable [phone] Jan Segundo Unavailable Unavailable Natali Phillip MD Unavailable Horacio Juarez MD Unavailable Unavailab Damir Haas MD Unavailable UnavailAnjum Newsome Unavailable Unavailable Star Norton MD Primary Care Provider Unavail able Erika Souza PA-C Unavailable Reason for Visit * Reason Onset Date Comments refill request 07/20/2022 Encounter Details Date Type Department Care Team Description 07/20/2022 Refill Pulmonology - [place] 175 [facility] [address] [place] [address] Natali Phillip MD 175 [place] [address] refill request Social History Tobacco Use Types Packs/Day Years Used Date Smoking Tobacco: Former Cigarettes 1 Q uit: 1980 Smokeless Tobacco: Never Alcohol Use Standard Drinks/Week Comments No 0 (1 standard drink = 0.6 oz pur e alcohol) Sex Assigned at Date Recorded Not on file documented as of this encounter Miscellaneous Notes * Telephone Encounter - Kavon Coles CMA - 07/22/2022 11:34 AM EST JONY 06/13/22 NOV 12/12/22. * Telephone Encounter - Ondina Mc - 07/20/2022 2:18 PM EST Patient would like script to be: E-PRESCRIBED/FAXED TO PHARMACY WHEN WAS THE PATIENT'S LAST APPOINTMENT IN ADULT MEDICINE? 06/13/22 WHEN WAS THE LAST TIME THE PATIENT SAW THEIR PCP? Same as above Does patient have an upcoming appointment? Yes 12/12/22 (THE MEDICATION REQUESTED IS ON THE MED LIST ABOVE) All of the medications requested were on the CURRENT MEDS list Did you check the Pharmacy information above?: YES Patient wants: 30 -day supply Is this a mail order prescription request ? NO If the refill is from a FAXED refill request what is the RX # listed on the fax? 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 300 [facility] [address] [place] [address] Obstetrics/Gynecology 06/12/23 Natali Phillip MD [address] [place] [address] Specialist Pulmonology 06/12/23 Horacio Juarez MD [address] [place] [address] Gastroenterology 06/12/23 Damir Fried MD [address] [place] [address] Rheumatology 06/12/23 Anjum Brody [address] [place] [address] Ophthalmology 06/12/23 Erika Souza PA-C [address] [place] [address] Specialist Cardiology 08/09/23 documented as of this encounter
--- OUTSIDE RECORDS SUMMARY | 2025-02-28 13:49 | XMS_ITS | Encounter Summary ---
Author Organization [facility] Address [address] [place] [address] Care Team Providers Care Offset Platemaker Name Role Phone Terrance Buitrago MD Primary Care Provider U Jose Javed MD Unavailable [phone] Jan Segundo Unavailable Unavailable Natali Phillip MD Unavailable Horacio Juarez MD Unavailable Unavailab Damir Haas MD Unavailable UnavailAnjum Newsome Unavailable Unavailable Star Norton MD Primary Care Provider Unavail able Erika Souza PA-C Unavailable Reason for Visit * Reason Comments E-prescribe Rx Request Encounter Details Date Type Department Care Team Description 10/22/2019 Refill Pulmonology - [place] 175 [facility] [address] [place] [address] Natali Phillip MD [address] [place] [address] E-prescribe Rx Request Social History Tobacco Use Types Packs/Day Years Used Date Smoking Tobacco: Former Cigarettes 1 Q uit: 1980 Smokeless Tobacco: Never Alcohol Use Standard Drinks/Week Comments No 0 (1 standard drink = 0.6 oz pur e alcohol) Sex Assigned at Date Recorded Not on file documented as of this encounter Miscellaneous Notes * Telephone Encounter - Deana Edwards - 10/22/2019 3:23 PM EDT Patient would like script to be: E-PRESCRIBED/FAXED TO PHARMACY WHEN WAS THE PATIENT'S LAST APPOINTMENT WITH THE PRESCRIBING PROVIDER? 09/09/19 Does patient have an upcoming appointment? Yes 12/12/19 (THE MEDICATION REQUESTED IS ON THE MED LIST ABOVE) All of the medications requested were on the CURRENT MEDS list Did you check the Pharmacy information above?: YES Patient wants: 30 -day supply Is this a mail order prescription request ? NO Patients current insurance carrier is: Payor: MEDICARE-[employer] / [place] / Product Type: MEDICARE [id number] documented in this encounter Plan of Treatment Not on file documented as of this encounter Visit Diagnoses Not on filedocumented in this encounter Care Teams Offset Platemaker Relationship Specialty Start Date End Date Terrance Buitrago MD PCP - General Internal Medicine 08/01/1706/02 Star Norton MD [address] [place] [address] PCP - General Internal Medicine 06/13/23 Jose Orozco MD [address] [address] Specialist Cardiology 06/01/23 Jan Segundo [address] [address] Obstetrics/Gynecology 06/12/23 Natali Phillip MD [address] [place] [address] Specialist Pulmonology 06/12/23 Horacio Juarez MD [address] [place] [address] Gastroenterology 06/12/23 Damir Fried MD [address] [place] [address] Rheumatology 06/12/23 Anjum Brody [address] [place] [address] Ophthalmology 06/12/23 Erika Souza PA-C [address] [place] [address] Specialist Cardiology 08/09/23 documented as of this encounter
--- OUTSIDE RECORDS SUMMARY | 2025-02-28 13:49 | XMS_ITS | Encounter Summary ---
Author Organization [facility] Address [address] [place] [address] Care Team Providers Care Manager Of Photography Name Role Phone Terrance Buitrago MD Primary Care Provider U Jose Javed MD Unavailable [phone] Jan Segundo Unavailable Unavailable Natali Phillip MD Unavailable Horacio Juarez MD Unavailable Unavailab Damir Haas MD Unavailable UnavailAnjum Newsome Unavailable Unavailable Star Norton MD Primary Care Provider Unavail able Erika Souza PA-C Unavailable Reason for Visit * Reason Comments E-prescribe Rx Request Encounter Details Date Type Department Care Team Description 11/18/2019 Refill Pulmonology - [place] 175 [facility] [address] [place] [address] Natali Phillip MD [address] [place] [address] E-prescribe Rx Request Social History Tobacco Use Types Packs/Day Years Used Date Smoking Tobacco: Former Cigarettes 1 Q uit: 1980 Smokeless Tobacco: Never Alcohol Use Standard Drinks/Week Comments No 0 (1 standard drink = 0.6 oz pur e alcohol) Sex Assigned at Date Recorded Not on file documented as of this encounter Miscellaneous Notes * Telephone Encounter - Alison Pickett - 11/19/2019 12:37 PM EDT Patient would like script to be: E-PRESCRIBED/FAXED TO PHARMACY WHEN WAS THE PATIENT'S LAST APPOINTMENT WITH THE PRESCRIBING PROVIDER? 09/09/2019 Does patient have an upcoming appointment? Yes 12/12/2019 (THE MEDICATION REQUESTED IS ON THE MED LIST ABOVE) All of the medications requested were on the CURRENT MEDS list Did you check the Pharmacy information above?: YES Patient wants: 30 -day supply Is this a mail order prescription request ? NO Patients current insurance carrier is: Payor: MEDICARE-[employer] / Plan: MEDICARE-[employer] / Product Type: MEDICARE [id number] documented in this encounter Plan of Treatment Not on file documented as of this encounter Visit Diagnoses Diagnosis LACI (mycobacterium avium-intracellulare) (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 documented in this encounter Care Teams Manager Of Photography Relationship Specialty Start Date End Date Terrance Buitrago MD PCP - General Internal Medicine 08/01/1706/02 Star Norton MD [address] [place] [address] PCP - General Internal Medicine 06/13/23 Jose Orozco MD [address] [address] Specialist Cardiology 06/01/23 Jan Segundo [address] [address] Obstetrics/Gynecology 06/12/23 Natali Phillip MD [address] [place] [address] Specialist Pulmonology 06/12/23 Horacio Juarez MD [address] [place] [address] Gastroenterology 06/12/23 Damir Fried MD [address] [place] [address] Rheumatology 06/12/23 Anjum Brody [address] [place] [address] Ophthalmology 06/12/23 Erika Souza PA-C [address] [place] [address] Specialist Cardiology 08/09/23 documented as of this encounter
--- OUTSIDE RECORDS SUMMARY | 2025-02-28 13:49 | XMS_ITS | Encounter Summary ---
Author Organization [facility] [place] [address] Care Team Providers Care Franchise Sales Representative Name Role Phone Star Norton MD Primary Care Provider [phone] Encounter Details Date Type Department Care Team (Latest Contact Info) Description 05/21/2024 Lab Requisition [facility] - Main Lab 299 [facility] [place] [address] Jan Segundo MD 299 [facility] [address] [place] [address] Encounter for gynecological examination (general) (routine) without abnormal findings Social History Tobacco Use Types Packs/Day Years Used Date Smoking Tobacco: Former Cigarettes Q uit: 07/03/1979 Smokeless Tobacco: Never Alcohol Use Standard Drinks/Week Comments No 0 (1 standard drink = 0.6 oz pur e alcohol) Comments Unknown Sex and Gender Information Value Date Recorded Sex Assigned at Female 06/04/2024 11:43 AM EST Legal Sex Female 10:10 PM EST Gender Identity Female 06/04/2024 11:43 AM EST Sexual Orientation Choose not to disclose 2023 11:43 AM EST documented as of this encounter Plan of Treatment Upcoming Encounters Date Type Department Care Team (Late st Contact Info) Description 08/18/2025 1:00 PM EST [facility] 175 [facility] [address] [place] [address] Natali Phillip MD [address] [place] [address] documented as of this encounter Procedures Procedure Name Priority Date/Time Associated Diagnosis Comments PAP SMEAR Routine 05/20/2024 12:00 AM EST Encounter for gynecological examination (general) (routine) without abnormal findings documented in this encounter Results * Pap smear (05/20/2024 12:00 AM EST) Interpretation Negative for intraepithelial lesion or malignancy 05/22/2024 4:09 PM [facility] General Categorization Negative 05/22/2024 4:09 PM [facility] Specimen Adequacy Satisfactory for evaluation, endocervical/hayward sformation zone component present 05/22/2024 4:09 PM [facility] Pap Methodology Liquid Based Pap Test 05/22/2024 4:09 PM [facility] Disclaimer The Pap test is a screening test which carries an inherent false negative rate. These test results should be correlated with the patient's clinical findings and history. This Pap test was processed using an automated screening system. Technical cytopathology services provided by [facility], at [address] [place] [address] (CLIA # [id number]/Shaquille Ware MD, Networking Administrator.) 05/22/2024 4:09 PM [facility] Console Pap Interpretation Reported 05/22/2024 4:09 PM [facility] Brushing/Spatula Cervix uteri structure / Unknown 05/20/2024 05/21/2024 10:28 AM EST us Jan Segundo MD LAB CYTOLOGY ORDERABLES Final Result [facility] [address] [place] [address], documented in this encounter Visit Diagnoses Diagnosis Encounter for gynecological examination (general) (routine) without abnormal findings documented in this encounter Care Teams Franchise Sales Representative Relationship Specialty Start Date End Date Star Norton MD [address] [place] [address] PCP - General 06/13/23 documented as of this encounter
--- OUTSIDE RECORDS SUMMARY | 2025-02-28 13:49 | XMS_ITS | Encounter Summary ---
Author Organization [facility] Address [address] [place] [address] Care Team Providers Care Open End Spinning Operator Name Role Phone Terrance Buitrago MD Primary Care Provider U Jose Javed MD Unavailable [phone] Jan Segundo Unavailable Unavailable Natali Phillip MD Unavailable Horacio Juarez MD Unavailable Unavailab Damir Haas MD Unavailable UnavailAnjum Newsome Unavailable Unavailable Star Norton MD Primary Care Provider Unavail able Erika Souza PA-C Unavailable Reason for Visit * Reason Comments E-prescribe Rx Request Encounter Details Date Type Department Care Team Description 08/21/2022 Refill Pulmonology - [place] 175 [facility] [address] [place] [address] Natali Phillip MD [address] [place] [address] E-prescribe Rx Request Social History [...] Telephone Encounter - Kavon Coles CMA - 08/22/2022 11:48 AM EST JONY 06/13/22 NOV 12/12/22 * Telephone Encounter - Vero Cormier - 08/22/2022 10:02 AM EST Patient would like script to be: [...] / [place] / Product Type: MEDICARE [id number] documented in this encounter Plan of Treatment Not on file documented as of this encounter Visit Diagnoses Diagnosis 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 300 [facility] [address] [place] [address] Obstetrics/Gynecology 06/12/23 Natali Phillip MD [address] [place] [address] Specialist Pulmonology 06/12/23 Horacio Juarez MD [address] [place] [address] Gastroenterology 06/12/23 Damir Fried MD [address] [place] [address] Rheumatology 06/12/23 Anjum Brody [address] [place], [place] Ophthalmology 06/12/23 Erika Souza PA-C [address] [place] [address] Specialist Cardiology 08/09/23 documented as of this encounter
--- OUTSIDE RECORDS SUMMARY | 2025-02-28 13:49 | XMS_ITS | Encounter Summary ---
Author Organization [facility] Address [address] [place] [address] Care Team Providers Care Dairy Helper Name Role Phone Jose Orozco MD Unavailable [phone] Jan Segundo Unavailable Unavailable Natali Phililp MD Unavailable Horacio Juarez MD Unavailable Unavailab Damir Haas MD Unavailable UnavailAnjum Newsome Unavailable Unavailable Star Norton MD Primary Care Provider Unavail able Erika Souza PA-C Unavailable Reason for Visit * Reason Onset Date Comments other 08/18/2023 Chest discomfort Encounter Details Date Type Department Care Team Description 08/18/2023 Telephone Cardio [facility] [address] [place] [address] [address] [place] [address] Erika Souza PA-C [address] [place] [address] [id number] other (Chest discomfort) Social History Tobacco Use Types Packs/Day Years Used Date Smoking Tobacco: Former Cigarettes 1 Q uit: 1979 Smokeless Tobacco: Never Alcohol Use Standard Drinks/Week Comments No 0 (1 standard drink = 0.6 oz pur e alcohol) Sex Assigned at Date Recorded Not on file documented as of this encounter Miscellaneous Notes * Telephone Encounter - Mireya Watt - 08/22/2023 1:18 PM EST Pt informed of the below and aware not to take Metoprolol and call if she endorses increased burdenof palpitaitons. Metoprolol d/c from med module. * Telephone Encounter - Carline Ziegler NP - 08/22/2023 12:44 PM EST She may discontinue, phone with increased burden of palpitations * Telephone Encounter - Antonia Joel RN - 08/22/2023 10:43 AM EST Please see below. Called pt this AM, is not taking Metoprolol currently, as she was diagnosed with PNA. She is status post SVT ablation, was weaning off of the Metoprolol. Has upcoming 24 hour Holterordered for 08/30/23. Do you want her to stay on Metoprolol 12.5mg BID? * Telephone Encounter - Shanelle Harrison - 08/22/2023 10:27 AM EST Patient calling, she states she went to [facility] on 08/18/23 for her chest discomfort. She was diagnosed with pneumonia and would like to make her provider aware it was not a cardiac related issue.pleaseadvise. . * Telephone Encounter - Mireya Watt - 08/18/2023 12:24 PM EST I called pt and informed her of the below regarding Metoprolol dosing. She voiced understanding, I also advised her to call us when she is dc from the hospital. * Telephone Encounter - Carline Ziegler NP - 08/18/2023 12:15 PM EST May begin with 12-1/2 twice a day and if not effective increase to a full tab * Telephone Encounter - Mireya Watt - 08/18/2023 11:59 AM EST Pt informed of the below message and agreeable. States she is going to try to find a ride to [employer]. Not having chest discomfort right now. She was on a Metoprolol Tartrate taper, so she took 25 mg BID for 3 days, then 12.5 mg BID for 3 days, then stopped. Would you like her to resume Metoprolol 25 mg BID or Metoprolol 12.5 mg BID? * Telephone Encounter - Carline Ziegler NP - 08/18/2023 11:32 AM EST Images from the original note were not included. Per LM note: Please have her resume Metoprolol, although chest pain is atypical I do not see any recent stress testing. History suggests no pertinent family history, cardiac risk factors include remote smoking and hyperlipidemia, as it is Monday, I would recommend that she be seen in the ER for an EKG, assessment and blood work. * Telephone Encounter - Mireya Watt - 08/18/2023 10:32 AM EST I called pt. Onset of left-sided chest discomfort, that she describes as squeezing/pressure, while walking to the bus yesterday. Chest discomfort felt more subtle per pt while sitting and was not completely alleviated. Today, the discomfort is occurring both on exertion and at rest- lasting a fewseconds to a minute at a time. She rates the discomfort a 2 on the Numeric Pain Scale. Pt denies radiation, N/V, diaphoresis, dizziness, lightheadedness, presyncope and recent illness. She drinks 64 ounces of water daily, 1 cup of caffeinated coffee in the AM and 1 cup of tea nightly. Last night, she endorsed palpitations that felt stronger for a couple seconds, her HR went as high as 105 bpm while sitting and did not persist. While on the phone, BP 109/74, HR 96 bpm. Pt does not have an AppleWatch, KardiaMobile, or device with EKG capabilities. Denies palpitations currently. Pt was educated on when to call 9-1-1: for chest discomfort lasting 10 min or longer, unrelieved by rest, worsening SOB, presyncope, or at the onset of other new, concerning symptoms. Pt was seen in office 08/09/23 and she stopped taking Metoprolol 2 days ago. Pending Holter monitor placement on 08/30/23. Pt is s/p SVT ablation as of 07/12/23 and reports experiencing the chest discomfort prior to the procedure. She is questioning if being off of the Metoprolol is causing her symptoms and also asked if she can restart the med? * Telephone Encounter - Vandana eBasley - 08/18/2023 9:51 AM EST Patient has chest discomfort (has Holter monitor appointment 08/30/2023). Chest discomfort started yesterday morning. Also states pulse went up to 100. Please advise documented in this encounter Plan of Treatment Not on file documented as of this encounter Visit Diagnoses Not on filedocumented in this encounter Care Teams Dairy Helper Relationship Specialty Start Date End Date Star Norton MD [address] [place] [address] PCP - General Internal Medicine 06/13/23 Jose Orozco MD [address] [address] Specialist Cardiology 06/01/23 Jan Segundo [address] [address] Obstetrics/Gynecology 06/12/23 Natali Phillip MD [address] [place] [address] Specialist Pulmonology 06/12/23 Horacio Juarez MD [address] [place] [address] Gastroenterology 06/12/23 Damir Fried MD [address] [place] [address] Rheumatology 06/12/23 Anjum Brody [address] [place] [address] Ophthalmology 06/12/23 Erika Souza PA-C [address] [place] [address] Specialist Cardiology 08/09/23 documented as of this encounter
--- OUTSIDE RECORDS SUMMARY | 2025-02-28 13:49 | XMS_ITS | Encounter Summary ---
Author Organization [facility] Address [address] [place] [address] Care Team Providers Care Dining Manager Name Role Phone Terrance Buitrago MD Primary Care Provider U Jose Javed MD Unavailable [phone] Jan Segundo Unavailable Unavailable Natali Phillip MD Unavailable Horacio Juarez MD Unavailable Unavailab Damir Haas MD Unavailable UnavailAnjum Newsome Unavailable Unavailable Star Norton MD Primary Care Provider Unavail able Erika Souza PA-C Unavailable Encounter Details Date Type Department Care Team Description 08/25/2017 Release of Information Medical Records [address] [place] [id number] Abstract, Provider Social History Tobacco Use Types Packs/Day Years Used Date Smoking Tobacco: Former Cigarettes 1 Q uit: 1980 Alcohol Use Standard Drinks/Week Comments No 0 (1 standard drink = 0.6 oz pur e alcohol) Sex Assigned at Date Recorded Not on file documented as of this encounter Plan of Treatment Not on file documented as of this encounter Visit Diagnoses Not on filedocumented in this encounter Care Teams Dining Manager Relationship Specialty Start Date End Date Terrance Buitrago MD PCP - General Internal Medicine 08/01/1706/02 Star Norton MD [address] [place] [address] PCP - General Internal Medicine 06/13/23 Jose Orozco MD [address] [place], [place] [id number] Specialist Cardiology 06/01/23 Jan Segundo. 300 [facility] [address] [place] [address] Obstetrics/Gynecology 06/12/23 Natali Phillip MD [address] [place] [address] Specialist Pulmonology 06/12/23 Horacio Juarez MD [address] [place] [address] Gastroenterology 06/12/23 Damir Fried MD [address] [place] [address] Rheumatology 06/12/23 Anjum Brody [address] [place], [place] Ophthalmology 06/12/23 Erika Souza PA-C [address] [place] [address] Specialist Cardiology 08/09/23 documented as of this encounter
--- OUTSIDE RECORDS SUMMARY | 2025-02-28 13:49 | XMS_ITS | Encounter Summary ---
Author Organization [facility] Address [address] [place] [address] Care Team Providers Care Package Designer Name Role Phone Terrance Buitrago MD Primary Care Provider U Jose Javed MD Unavailable [phone] Jan Segundo Unavailable Unavailable Natali Phillip MD Unavailable Horacio Juarez MD Unavailable Unavailab Damir Haas MD Unavailable UnavailAnjum Newsome Unavailable Unavailable Star Norton MD Primary Care Provider Unavail able Erika Souza PA-C Unavailable Encounter Details Date Type Department Care Team Description 04/23/2018 SCAN Medical Records [address] [place] [address] Abstract, Provider Social History Tobacco Use Types [...] Name Priority Date/Time Associated Diagnosis Comments OUTSIDE PLAIN FILM Routine 04/23/2018 documented in this encounter Results * OUTSIDE PLAIN FILM (04/23/2018) Provider Default RADIOLOGY documented in this encounter Visit Diagnoses Not on filedocumented in this encounter Care Teams Package Designer Relationship Specialty Start Date End Date Terrance Buitrago MD PCP - General Internal Medicine 08/01/1706/02 Star Norton MD [address] [place] [address] PCP - General Internal Medicine 06/13/23 Jose Orozco MD [address] [address] Specialist Cardiology 06/01/23 Jan Segundo [address] [address] Obstetrics/Gynecology 06/12/23 Natali Phillip MD [address] [place] [address] Specialist Pulmonology 06/12/23 Horacio Juarez MD [address] [place] [address] Gastroenterology 06/12/23 Damir Fried MD [address] [place] [address] Rheumatology 06/12/23 Anjum Brody [address] [place] [address] Ophthalmology 06/12/23 Erika Souza PA-C [address] [place] [address] Specialist Cardiology 08/09/23 documented as of this encounter
--- OUTSIDE RECORDS SUMMARY | 2025-02-28 13:49 | XMS_ITS | Encounter Summary ---
Author Organization [facility] Address [address] [place] [address] Care Team Providers Care Bone Crusher Name Role Phone Terrance Buitrago MD Primary Care Provider U Jose Javed MD Unavailable [phone] Jan Segundo Unavailable Unavailable Natali Phillip MD Unavailable Horacio Juarez MD Unavailable Unavailab Damir Haas MD Unavailable UnavailAnjum Newsome Unavailable Unavailable Star Norton MD Primary Care Provider Unavail able Erika Souza PA-C Unavailable Reason for Visit * Reason Onset Date Comments Release Of Information 01/07/2020 Encounter Details Date Type Department Care Team Description 01/07/2020 Telephone Pulmonology - [place] 175 [facility] [address] [place] [address] Natali Phillip MD [address] [place] [address] Release Of Information Social History Tobacco Use Types Packs/Day Years Used Date Smoking Tobacco: Former Cigarettes 1 Q uit: 1979 Smokeless Tobacco: Never Alcohol Use Standard Drinks/Week Comments No 0 (1 standard drink = 0.6 oz pur e alcohol) Sex Assigned at Date Recorded Not on file documented as of this encounter Miscellaneous Notes * Telephone Encounter - Kylah Briseno - 01/07/2020 10:12 AM EDT The patient is calling because Dr. Phillip ordered a lung bisopy but the doctor who was supposed to dothe lung biospy stated that the patient did not need it. Patient just wanted to let Dr. Phillip know she didn't get it done and unsure if the appiontment is necessary due to her not getting a lung bisopy. Please call patient if appiontment is not needed. documented in this encounter Plan of Treatment Not on file documented as of this encounter Visit Diagnoses Not on filedocumented in this encounter Care Teams Bone Crusher Relationship Specialty Start Date End Date Terrance Buitrago MD PCP - General Internal Medicine 08/01/1706/02 Star Norton MD [address] [place] [address] PCP - General Internal Medicine 06/13/23 Jose Orozco MD [address] [address] Specialist Cardiology 06/01/23 Jan Segundo [address] [address] Obstetrics/Gynecology 06/12/23 Natali Phillip MD [address] [place], [place] Specialist Pulmonology 06/12/23 Horacio Juarez MD [address] [place] [address] Gastroenterology 06/12/23 Damir Fried MD [address] [place] [address] Rheumatology 06/12/23 Anjum Brody [address] [place] [address] Ophthalmology 06/12/23 Erika Souza PA-C [address] [place], [place] Specialist Cardiology 08/09/23 documented as of this encounter
--- OUTSIDE RECORDS SUMMARY | 2025-02-28 13:49 | XMS_ITS | Encounter Summary ---
Author Organization [facility] Address [address] [place] [address] Care Team Providers Care Betting Agency Manager Name Role Phone Terrance Buitrago MD Primary Care Provider U Jose Javed MD Unavailable [phone] Jan Segundo Unavailable Unavailable Natali Phillip MD Unavailable Horacio Juarez MD Unavailable Unavailab Damir Haas MD Unavailable UnavailAnjum Newsome Unavailable Unavailable Star Norton MD Primary Care Provider Unavail able Erika Souza PA-C Unavailable Reason for Visit * Reason Comments E-prescribe Rx Request Encounter Details Date Type Department Care Team Description 06/24/2022 Refill Pulmonology - [place] 175 [facility] [address] [place] [address] Natali Phillip MD [address] [place] [address] E-prescribe Rx Request Social History Tobacco Use Types Packs/Day Years Used Date Smoking Tobacco: Former Cigarettes 1 Q uit: 1979 Smokeless Tobacco: Never Alcohol Use Standard Drinks/Week Comments No 0 (1 standard drink = 0.6 oz pur e alcohol) Sex Assigned at Date Recorded Not on file COVID-19 Exposure Response Date Recorded In the last 10 days, have yo u been in contact with someone who was confirmed or suspected to have Coronavirus/COVID-19? 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 Chronic obstructive pulmonary disease, unspecified COPD type (HCC) documented in this encounter Care Teams Betting Agency Manager Relationship Specialty Start Date End Date Terrance Buitrago MD PCP - General Internal Medicine 08/01/1706/02 Star Norton MD [address] [place] [address] PCP - General Internal Medicine 06/13/23 Jose Orozco MD [address] [place] [address] Specialist Cardiology 06/01/23 Jan Segundo [address] [place] [address] Obstetrics/Gynecology 06/12/23 Natali Phillip MD [address] [place] [address] Specialist Pulmonology 06/12/23 Horacio Juarez MD [address] [place] [address] Gastroenterology 06/12/23 Damir Fried MD [address] [place] [address] Rheumatology 06/12/23 Anjum Brody [address] [place] [address] Ophthalmology 06/12/23 Erika Souza PA-C [address] [place] [address] Specialist Cardiology 08/09/23 documented as of this encounter
--- OUTSIDE RECORDS SUMMARY | 2025-02-28 13:49 | XMS_ITS | Encounter Summary ---
Author Organization [facility] Address [address] [place] [address] Care Team Providers Care Order Taker Name Role Phone Terrance Buitrago MD Primary Care Provider U Jose Javed MD Unavailable [phone] Jan Segundo Unavailable Unavailable Natali Phillip MD Unavailable Horacio Juarez MD Unavailable Unavailab Damir Haas MD Unavailable UnavailAnjum Newsome Unavailable Unavailable Star Norton MD Primary Care Provider Unavail able Erika Souza PA-C Unavailable Encounter Details Date Type Department Care Team Description 04/04/2023 Hot Blaster Report Medical Records [address] [place] [address] Star Norton MD Social History Tobacco Use Types Packs/Day Years [...] Name Priority Date/Time Associated Diagnosis Comments OUTSIDE LOOP RECORDER Routine 04/18/2023 documented in this encounter Results * OUTSIDE LOOP RECORDER (04/18/2023) Provider Default CARDIOLOGY documented in this encounter Visit Diagnoses Not on filedocumented in this encounter Care Teams Order Taker Relationship Specialty Start Date End Date Terrance Buitrago MD PCP - General Internal Medicine 08/01/1706/02 Star Norton MD [address] [place] [address] PCP - General Internal Medicine 06/13/23 Jose Orozco MD [address] [address] Specialist Cardiology 06/01/23 Jan Segundo [address] [address] Obstetrics/Gynecology 06/12/23 Natali Phillip MD [address] [place] [address] Specialist Pulmonology 06/12/23 Horacio Juarez MD [address] [place] [address] Gastroenterology 06/12/23 Damir Fried MD [address] [place] [address] Rheumatology 06/12/23 Anjum Brody [address] [place] [address] Ophthalmology 06/12/23 Erika Souza PA-C [address] [place] [address] Specialist Cardiology 08/09/23 documented as of this encounter
--- OUTSIDE RECORDS SUMMARY | 2025-02-28 13:49 | XMS_ITS | Encounter Summary ---
Author Organization [facility] Address [address] [place] [address] Care Team Providers Care Educational Program Director Name Role Phone Terrance Buitrago MD Primary Care Provider U Jose Javed MD Unavailable [phone] Jan Segundo Unavailable Unavailable Natali Phillip MD Unavailable Horacio Juarez MD Unavailable Unavailab Damir Haas MD Unavailable UnavailAnjum Newsome Unavailable Unavailable Star Norton MD Primary Care Provider Unavail able Erika Souza PA-C Unavailable Reason for Visit * Reason Comments E-prescribe Rx Request Encounter Details Date Type Department Care Team Description 07/24/2022 Refill Pulmonology - [place] 175 [facility] [address] [place] [address] Natali Phillip MD [address] [place] [address] E-prescribe Rx Request Social History Tobacco Use Types Packs/Day Years Used Date Smoking Tobacco: Former Cigarettes 1 Q uit: 1979 Smokeless Tobacco: Never Alcohol Use Standard Drinks/Week Comments No 0 (1 standard drink = 0.6 oz pur e alcohol) Sex Assigned at Date Recorded Not on file documented as of this encounter Miscellaneous Notes * Telephone Encounter - Tesfaye Hunter - 07/25/2022 10:02 AM EST Patient would like script to be: E-PRESCRIBED/FAXED TO PHARMACY WHEN WAS THE PATIENT'S LAST APPOINTMENT IN ADULT MEDICINE? 06/13/2022 WHEN WAS THE LAST TIME THE PATIENT SAW THEIR PCP? Same as above Does patient have an upcoming appointment? 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 Chronic obstructive pulmonary disease, unspecified COPD type (HCC) documented in this encounter Care Teams Educational Program Director Relationship Specialty Start Date End Date Terrance Buitrago MD PCP - General Internal Medicine 08/01/1706/02 Star Norton MD [address] [place] [address] PCP - General Internal Medicine 06/13/23 Jose Orozco MD [address] [address] Specialist Cardiology 06/01/23 Jan Segundo [address] [address] Obstetrics/Gynecology 06/12/23 Natali Phillip MD [address] [place] [address] Specialist Pulmonology 06/12/23 Horacio Juarez MD [address] [place] [address] Gastroenterology 06/12/23 Damir Fried MD [address] [place] [address] Rheumatology 06/12/23 Anjum Brody [address] [place] [address] Ophthalmology 06/12/23 Erika Souza PA-C [address] [place] [address] Specialist Cardiology 08/09/23 documented as of this encounter
--- OUTSIDE RECORDS SUMMARY | 2025-02-28 13:49 | XMS_ITS | Clinical Summary ---
Author Organization [facility] Address [address] [place] [address] Phone Care Team Providers Care [employer]ou[employer] Name Role Phone Star Norton MD Primary Care Provider [phone] Allergies Active Allergy Reactions Criticality Noted Date Comments Adhesive Rash 08/13/2024 Medications albuterol HFA (PROAIR HFA ; PROVENTIL HFA ; VENTOLIN HFA) 90 mcg/actuation inhaler Inhale 2 puffs by mouth. 4 Active MAGNESIUM OXIDE ORAL Take by mouth. Activ e multivit-min/fe rrous fumarate (MULTI VITAMIN ORAL) Take by mouth. Activ e simvastatin (ZOCOR) 10 mg tablet 2 Active alendronate (FOSAMAX) 70 mg tablet Take 1 tablet (70 mg total) by mouth. Active pantoprazole (PROTONIX) 40 mg EC tablet Take 1 tablet (40 mg total) by mouth 2 (two) times a day. 8 Active venlafaxine XR (EFFEXOR-XR) 150 mg 24 hr capsule Take 1 capsule (150 mg total) by mouth. Active miscellaneous medical supply misc CPAP Active fluticasone propionate (FLONASE) 50 mcg/actuation nasal spray Administer 2 sprays into each nostril 1 (one) time each day. 4 Active Active Problems Problem Noted Date Diagnosed Date Esophageal dysphagia 08/26/2024 Gastroesophageal reflux disease without esophagi tis 08/26/2024 Sinus riya-tachy syndrome (CMS/[facility] V24, [facility] V28) 08/09/2023 Bradycardia 08/09/2023 SOB (shortness of breath) 08/09/2023 Atrial tachycardia ([facility] V24) 06/08/2023 AVNRT (AV tadeo re-entry tachycardia) ([facility] V 24) 06/08/2023 PSVT (paroxysmal supraventri cular tachycardia) ([facility] V24) 06/08/2023 Palpitation 06/08/2023 HLD (hyperlipidemia) 06/08/2023 COPD (chronic obstructive pu lmonary disease) ([facility] V24, [facility] V28) 06/08/2023 Mycobacterium avium complex ([facility] [facility] V24, [facility]/ C V28) 04/08/2019 ANNIE (obstructive sleep apnea) 08/28/2017 Overview (05/03/2024): CPAP Depression 08/28/2017 Allergic rhinitis 08/28/2017 Asthma 08/28/2017 Encounters Date Type Department Care Team Description 02/17/2025 1:15 PM EDT Office Visit Pulmonolgy - [place] [address] [phone] Natali Phillip MD Bronchiectasis without complication ([facility] V24, [facility] V28) (Primary Dx); Mycobacterium avium complex ([facility] V24, [facility] V28) 01/17/2025 Telephone Pulmonolgy - [place] [address] [phone] Natali Phillip MD 01/08/2025 Telephone Pulmonolgy - [place] [address] [phone] Natali Phillip MD 11/29/2024 Telephone Pulmonolgy - [place] [address] [phone] Jaye Portillo [place] 11/28/2024 Telephone Pulmonolgy - [place] [address] [phone] Natali Phillip MD from Last 3 Months Immunizations Name Administration Dates Next Due Moderna SARS-CoV-2 COVID-19, mRNA, LNP-S, preservative free 11/09/2021,07/01/2021,11/12/2020,2020 Pfizer SARS-CoV-2 COVID-19, mRNA, LNP-S, preservative free 03/19/2022 Tdap Tetanus diptheria acell ular pertussis (Boostrix; Adacel) 7yo and older 05/24/2011 Surgical History Surgery Date Site/Laterality Comments COLECTOMY Medical History Medical History Date Comments Allergic rhinitis 08/28/2017 DX:Allergic rh initis ANNIE (obstructive sleep apnea) 08/28/2017 DX :ANNIE (obstructive sleep apnea); COMMENT: CPAP Depression 08/28/2017 DX:Depression GERD (gastroesophageal reflux disease) DX:GERD (gastroesophageal reflux disease) Osteoarthritis DX:Osteoarthriti s Anxiety DX:Anxiety Pain in right hip DX:Pain in rig ht hip Crohn's disease without comp lication ([facility] V24, [facility] V28) DX:Crohn's disease without complication (HCC) COPD (chronic obstructive pu lmonary disease) ([facility] V24, [facility] V28) H/O ileostomy Family History Medical History Relation Name Comments Breast cancer Mother Breast cancer Sister COPD,CAD, HTN, Drug/Alcohol, Joint Problems Relation Name Status Comments Mother Sister Social History Tobacco Use Types Packs/Day Years Used Date Smoking Tobacco: Former Cigarettes Q uit: 07/03/1979 Smokeless Tobacco: Never Tobacco Cessation:Counseling Given: Not Answered Alcohol Use Standard Drinks/Week Comments No 0 (1 standard drink = 0.6 oz pur e alcohol) Interpersonal Safety Answer Date Record ed Physical Abuse 08/21/2024 Verbal Abuse 08/21/2024 Comments No Sex and Gender Information Value Date Recorded Sex Assigned at Female 06/04/2024 11:43 AM EST Legal Sex Female 10:10 PM EST Gender Identity Female 06/04/2024 11:43 AM EST Sexual Orientation Choose not to disclose 2023 11:43 AM EST Obstetrics History Para Term AB IAB SAB Ectopic Multiple Livin g Live Births 0 Last Filed Vital Signs Vital Sign Reading Time Taken Comments Blood Pressure 116/78 02/17/2025 1:20 PM EDT Pulse 69 02/17/2025 1:20 PM EDT Temperature 36.3 C (97.4 F) 02/17/2025 1:20 PM EDT Respiratory Rate 16 02/17/2025 1:20 PM EDT Oxygen Saturation 97% 02/17/2025 1:20 PM EDT Inhaled Oxygen Concentration - - Weight 67.4 kg (148 lb 9.6 oz) 02/17/2025 1:20 P M EDT Height 165.1 cm (5' 5 ) 02/17/2025 1:20 PM EDT Body Mass Index 24.73 02/17/2025 1:20 PM EDT Plan of Treatment Upcoming Encounters Date Type Department Care Team (Late st Contact Info) Description 08/18/2025 1:00 PM EST Office Visit Pulmonolgy - [address] [place] [phone] Natali Phillip MD [address] [place] [phone] Health Maintenance Due Date Last Done Comments DTaP,Tdap,and Td Vaccines (4 - Td or Tdap) 05/24/2021 05/24/2011, 04/20/2007, 11/01/1999 Hepatitis C Screening 06/11/2022 Medicare Annual Wellness Visit 06/11/2022 Social Influencers of Health Screening 06/11/2022 Depression Screening 07/03/2024 COVID-19 Vaccine ( season) 2024 03/23/2024, 03/28/2023, 03/19/2022, Additional history exists Influenza Vaccine (#1) 2025 , 03/26/2023, 03/13/2022, Additional history exists Falls Risk Assessment 08/21/2025 08/21/2024 Hypertension/CHF/CAD Annual BMP Blood Test 01/27/2026 01/27/2025, 06/21/2024 Cholesterol Screening (Lipid Panel) 06/21/2029 06/21/2024 Osteoporosis Screening (Bone Density Screening) 08/05/2030 08/05/2020 Meningococcal ACWY Vaccine Aged Out 11/19/2010 N o longer eligible based on patient's age to complete this topic Pneumococcal Vaccine: 50+ Years Completed 10/30/2014, 04/22/2013, 03/19/2009, Additional history exists Zoster Vaccines Completed 01/13/2021, 03/01/2020 RSV Immunization Adult Patients Completed 03/26/2023 Breast Cancer Screening Discontinued 07/12/19, 07/11/2023, 07/08/2022, Additional history exists MMR Vaccines Aged Out 09/25/2024, 08/28/2024 No lo nger eligible based on patient's age to complete this topic HIB Vaccines Aged Out No longer eligi ble based on patient's age to complete this topic HPV Vaccines Aged Out No longer eligi ble based on patient's age to complete this topic Hepatitis A Vaccines Aged Out No long er eligible based on patient's age to complete this topic Hepatitis B Vaccines Aged Out No long er eligible based on patient's age to complete this topic IPV Vaccines Aged Out No longer eligi ble based on patient's age to complete this topic Meningococcal B Vaccine Aged Out No l onger eligible based on patient's age to complete this topic RSV Immunization Patients Under 20 months Aged Out No longer eligible based on patient's age to complete this topic Varicella Vaccines Aged Out No longer eligible based on patient's age to complete this topic Procedures Procedure Name Priority Date/Time Associated Diagnosis Comments IMMUNOGLOBULINS IGG, IGA, IGM, IGE Routine 01/27/2025 1:22 PM EDT Bronchiectasis without complication (CMS/HCC V24, CMS/HCC V28) Aspiration into airway, subsequent encounter CBC WITH AUTO DIFFERENTIAL Routine 01/27/2025 1:22 PM EDT Vitamin B12 deficiency anemia Hyperlipemia Major depressive disorder, recurrent episode, moderate (CMS/HCC V24, CMS/HCC V28) Obstructive sleep apnea (adult) (pediatric) CBC AND DIFFERENTIAL Routine 01/27/2025 1:22 PM EDT Vitamin B12 deficiency anemia Hyperlipemia Major depressive disorder, recurrent episode, moderate (CMS/HCC V24, CMS/HCC V28) Obstructive sleep apnea (adult) (pediatric) THYROID STIMULATING HORMONE Routine 01/27/2025 1:22 PM EDT Vitamin B12 deficiency anemia Hyperlipemia Major depressive disorder, recurrent episode, moderate (CMS/HCC V24, CMS/HCC V28) Obstructive sleep apnea (adult) (pediatric) SEDIMENTATION RATE Routine 01/27/2025 1: 22 PM EDT Vitamin B12 deficiency anemia Hyperlipemia Major depressive disorder, recurrent episode, moderate (CMS/HCC V24, CMS/HCC V28) Obstructive sleep apnea (adult) (pediatric) COMPREHENSIVE METABOLIC PANEL Routine 01/27/2025 1:22 PM EDT Vitamin B12 deficiency anemia Hyperlipemia Major depressive disorder, recurrent episode, moderate (CMS/HCC V24, CMS/HCC V28) Obstructive sleep apnea (adult) (pediatric) MG MAMMO DIGITAL SCREENING W QUENTIN BILAT Routine 07/12/2024 1:04 PM EST Encounter for screening mammogram for malignant neoplasm of breast LIPID PANEL WITH REFLEX TO DIRECT LDL Routine 06/21/2024 1:22 PM EST Anemia, unspecified Encounter for general adult medical examination with abnormal findings Hyperlipemia Routine medical exam Blood glucose elevated Senile arthritis Frequency of urination Vitamin B12 deficiency anemia Vitamin D deficiency disease Fatigue 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 CODIE DEXA AXIAL SKELETON Routine 08/05/19 21 11:35 AM EST Asymptomatic menopausal state from Last 3 Months or Most Recently Relevant to Health Maintenance Results * (ABNORMAL) Immunoglobulins IgG, IgA, IgM, IgE (01/27/2025 1:22 PM EDT) Total IgG 839 549 - 1,584 mg/dL LAB CHEMISTRY METHOD 01/27/2025 6:06 PM EDT [facility] IgA 433(H) 61 - 348 mg/dL LAB CHEMISTRY METHOD 01/27/2025 6:06 PM EDT [facility] IgM 26 23 - 259 mg/dL LAB CHEMISTRY METHOD 01/27/2025 6:06 PM EDT [facility] IgE 23.0 0.0 - 158.0 I Unit/mL LAB CHEMISTRY METHOD 01/27/2025 6:06 PM EDT [facility] Blood Venous blood specimen / Unknown Venipuncture / Unknown 01/27/2025 1:22 PM EDT 01/27/2025 1:43 PM EDT us Natali Phillip MD LAB BLOOD ORDERABLES Final Resul t [facility] [address] [place] [address], * (ABNORMAL) CBC auto differential (01/27/2025 1:22 PM EDT) WBC 7.4 4.8 - 10.8 K/mcL LAB HEMETOLOGY METHOD 01/27/2025 2:13 PM EDT [facility] RBC 3.70(L) 3.80 - 4.80 M/mcL LAB HEMETOLOGY METHOD 01/27/2025 2:13 PM EDT [facility] Hemoglobin 11.6 11.5 - 16.0 g/dL LAB HEMETOLOGY METHOD 01/27/2025 2:13 PM EDT [facility] Hematocrit 36.4 35.0 - 47.0 % LAB HEMETOLOGY METHOD 01/27/2025 2:13 PM EDT [facility] MCV 97.8 79.0 - 98.0 FL LAB HEMETOLOGY METHOD 01/27/2025 2:13 PM EDT [facility] MCH 31.2 27.0 - 32.0 pcg LAB HEMETOLOGY METHOD 01/27/2025 2:13 PM EDT [facility] MCHC 31.9(L) 32.0 - 37.0 g/dL LAB HEMETOLOGY METHOD 01/27/2025 2:13 PM EDT [facility] RDW 14.6 11.0 - 15.0 % LAB HEMETOLOGY METHOD 01/27/2025 2:13 PM EDT [facility] Platelets 298 130 - 400 K/mcL LAB HEMETOLOGY METHOD 01/27/2025 2:13 PM EDT [facility] MPV 11.0 7.0 - 11.0 FL [facility] NRBC 0.0 <1.0 % LAB HEMETOLOGY METHOD 01/27/2025 2:13 PM EDT [facility] NRBC Absolute 0.00 <0.10 K/mcL LAB [facility]OLOG[facility] Neutrophils Relative 59.3 % LAB HEMETOLOGY METHOD 01/27/2025 2:13 PM [facility] Lymphocytes Relative 24.8 % LAB HEMETOLOGY METHOD 01/27/2025 2:13 PM [facility] Monocytes Relative 9.6 % LAB HEMETOLOGY METHOD 01/27/2025 2:13 PM [facility] Eosinophils Relative 4.4 % LAB HEMETOLOGY METHOD 01/27/2025 2:13 PM [facility] Basophils Relative 1.1 % LAB HEMETOLOGY METHOD 01/27/2025 2:13 PM [facility] Immature Granulocytes Relative 0.8 % LAB HEMETOLOGY METHOD [facility]/27[facility]2025 [facility] Neutrophils Absolute 4.40 1.50 - 7.00 K/mcL LAB HEMETOLOGY METHOD 01/27[facility]2025 2[facility] Lymphocytes Absolute 1.84 1.00 - 5.00 K/mcL LAB HEMETOLOGY METHOD 01/27/2025 2:13 PM [facility] Monocytes Absolute 0.71 0.20 - 1.00 K/mcL LAB HEMETOLOGY METHOD 01/27/2025 2:13 PM EDT [facility] Eosinophils Absolute 0.33 0.00 - 0.50 K/mcL LAB HEMETOLOGY METHOD 01/27/2025 2:13 PM EDT [facility] Basophils Absolute 0.08 0.00 - 0.20 K/mcL LAB HEMETOLOGY METHOD 01/27/2025 2:13 PM EDT [facility] Immature Granulocytes Absolute 0.06(H) 0.00 - 0.03 K/[facility] LAB HEMETOLOGY METHOD 01/27/2025 2:13 PM EDT [facility] Blood Venous blood specimen / Unknown Venipuncture / Unknown 01/27/2025 1:22 PM EDT 01/27/2025 1:43 PM EDT Star Norton MD LAB BLOOD ORDERABLES Final Res ult Performing Organization Address City/[facility]/ZIP Co de Phone Number [facility] [address] [place] [address], [place] [phone] * Sedimentation rate (01/27/2025 1:22 PM EDT) Pathologist [facility] Sed Rate 16 0 - 30 mm/hr LAB HEMETOLOGY METHOD 01/27/2025 2:40 PM EDT [facility] Blood Venous blood specimen / Unknown Venipuncture / Unknown 01/27/2025 1:22 PM EDT 01/27/2025 1:43 PM EDT Star Norton MD LAB BLOOD ORDERABLES Final Res ult [facility] [address] [place] [address], [place] [phone] * Thyroid stimulating hormone (01/27/2025 1:22 PM EDT) TSH 3.46 0.40 - 4.00 mcIU/mL LAB CHEMISTRY METHOD 01/27/2025 6:16 PM EDT [facility] Blood Venous blood specimen / Unknown Venipuncture / Unknown 01/27/2025 1:22 PM EDT 01/27/2025 1:43 PM EDT us Star Norton MD LAB BLOOD ORDERABLES Final Res ult [facility] [address] [place] [address], * (ABNORMAL) Comprehensive metabolic panel (01/27/2025 1:22 PM EDT) Sodium 140 133 - 145 mmol/L LAB CHEMISTRY METHOD 01/27/2025 2:59 PM [facility] Potassium 4.0 3.5 - 5.5 mmol/L LAB CHEMISTRY METHOD 01/27/2025 2:59 PM [facility] Chloride 112(H) 96 - 110 mmol/L LAB CHEMISTRY METHOD 01/27/2025 2:59 PM [facility] CO2 24 21 - 32 mmol/L LAB CHEMISTRY METHOD 01/27/2025 2:59 PM [facility] Anion Gap 4 3 - 11 LAB CHEMISTRY METHOD 01/27/2025 2:59 PM [facility] Glucose 83 70 - 100 mg/dL LAB CHEMISTRY METHOD 01/27/2025 2:59 PM [facility] BUN 22 5 - 25 mg/dL LAB CHEMISTRY METHOD 01/27/2025 2:59 PM [facility] Creatinine 1.10 0.50 - 1.10 mg/dL LAB CHEMISTRY METHOD 01/27/2025 2:59 PM [facility] eGFR 52(L) >=60 mL/min/1. 73m2 LAB CHEMISTRY METHOD 01/27/2025 2:59 PM T [facility] Comment:Calculation based on the Chronic Kidney Disease Epidemiology Collaboration (CKD-EPI) equation refit without adjustment for race. BUN/Creatinine Ratio 20.0 LAB CHEMISTRY METHOD 01/27/2025 2:59 PM EDT [facility] Calcium 9.2 8.5 - 10.5 mg/dL LAB CHEMISTRY METHOD 01/27/2025 2:59 PM EDT [facility] AST (SGOT) 20 10 - 42 unit/L LAB CHEMISTRY METHOD 01/27/2025 2:59 PM EDT [facility] ALT (SGPT) 21 10 - 60 unit/L LAB CHEMISTRY METHOD 01/27/2025 2:59 PM EDT [facility] Alkaline Phosphatase 65 42 - 121 unit/L LAB CHEMISTRY METHOD 01/27/2025 2:59 PM EDT [facility] Total Protein 6.7 6.0 - 8.0 g/dL LAB CHEMISTRY METHOD 01/27/2025 2:59 PM EDT [facility] Albumin 3.6 3.2 - 5.0 g/dL LAB CHEMISTRY METHOD 01/27/2025 2:59 PM EDT [facility] Total Bilirubin 0.3 0.0 - 1.4 mg/dL LAB CHEMISTRY METHOD 01/27/2025 2:59 PM EDT [facility] Blood Venous blood specimen / Unknown Venipuncture / Unknown 01/27/2025 1:22 PM EDT 01/27/2025 1:43 PM EDT us Star Norton MD LAB BLOOD ORDERABLES Final Res ult [facility] [address] [place] [address], [place] [phone] * MG Mammo Digital Screening w Quentin bilat (07/12/2024 1:04 PM EST) Anatomical Region Laterality Modality Breast Bilateral Mammography 07/12/2024 2:34 PM EST Impressions 07/12/2024 2:42 PM EST No mammographic evidence of malignancy. No suspicious interval change. A negative mammogram in the presence of a clinically suspicious palpable abnormality does not preclude the possibility of malignancy or alter the indications for biopsy. ASSESSMENT: BI-RADS 1: NEGATIVE RECOMMENDATION(S): 1: Routine screening mammogram BILATERAL in 1 year. -------- FINAL REPORT -------- Dictated By: Slick Matthews Dictated Date: 07/12/2024 14:34 ET Assigned Physician: Slick Matthews Reviewed and Electronically Signed By: Slick Matthews Signed Date: 07/12/2024 14:42 ET Workstation ID: [id number] Transcribed By: Self Edit Transcribed Date: 07/12/2024 14:36 ET Narrative 07/12/2024 2:42 PM EST EXAM: SCREENING MAMMOGRAPHY, BILATERAL HISTORY: SCREENING. Family history of breast cancer, mother and sister. COMPARISON: 07/11/2023, 07/08/2022, 05/28/2021, 05/26/2020 TECHNIQUE: Synthesized CC and MLO projections of each breast. Tomosynthesis of each breast in the CC and MLO projections. ADDITIONAL IMAGING: None Computer-aided detection was employed with the [employer] AI 3-D. TISSUE DENSITY: There are scattered areas of fibroglandular density. (BI-RADS category B) FINDINGS: RIGHT BREAST: No suspicious mass. No suspicious calcification. No distortion. No additional suspicious right breast findings Partially included axillary surgical clip LEFT BREAST: No suspicious mass. No suspicious calcification. No distortion. No additional suspicious left breast findings Procedure Note Slick Matthews MD - 07/12/2024 EXAM: SCREENING MAMMOGRAPHY, BILATERAL HISTORY: SCREENING. Family history of breast cancer, mother andsister. COMPARISON: 07/11/2023, 07/08/2022, 05/28/2021, 05/26/2020 TECHNIQUE: Synthesized CC and MLO projections of each breast.Tomosynthesis of each breast in the CC and MLO projections. ADDITIONAL IMAGING: None Computer-aided detection was employed with the [employer] AI 3-D. TISSUE DENSITY: There are scattered areas of fibroglandular density.(BI-RADS category B) FINDINGS: RIGHT BREAST: No suspicious mass. No suspicious calcification. No distortion. Noadditional suspicious right breast findings Partially included axillary surgical clip LEFT BREAST: No suspicious mass. No suspicious calcification. No distortion. Noadditional suspicious left breast findings IMPRESSION: No mammographic evidence of malignancy. No suspicious interval change. A negative mammogram in the presence of a clinically suspicious palpableabnormality does not preclude the possibility of malignancy or alter theindications for biopsy. ASSESSMENT: BI-RADS 1: NEGATIVE RECOMMENDATION(S): 1: Routine screening mammogram BILATERAL in 1 year. -------- FINAL REPORT -------- Dictated By: Slick Matthews Dictated Date: 07/12/2024 14:34 ET Assigned Physician: Slick Matthews Reviewed and Electronically Signed By: Slick Matthews Signed Date: 07/12/2024 14:42 ET Workstation ID: [id number] Transcribed By: Self Edit Transcribed Date: 07/12/2024 14:36 ET George Segundo MD IMG BI PROCEDURES Final Result * Lipid panel with reflex to direct LDL (06/21/2024 1:22 PM EST) Cholesterol 186 0 - 200 mg/dL LAB CHEMISTRY METHOD 06/21/2024 6:23 PM [facility] Triglycerides 95 0 - 150 mg/dL LAB CHEMISTRY METHOD 06/21/2024 6:23 PM [facility] HDL 90 >=40 mg/dL LAB CHEMISTRY METHOD 06/21/2024 6:23 PM [facility] LDL Calculated 77 0 - 100 mg/dL LAB CHEMISTRY METHOD 06/21/2024 6:23 PM [facility] VLDL Cholesterol Victor Hugo 19 mg/dL LAB CHEMISTRY METHOD 06/21/2024 6:23 PM [facility] Non HDL Chol. (LDL+VLDL) 96 <145 mg/dL LAB CHEMISTRY METHOD 06/21/2024 6:23 PM [facility] Chol/HDL Ratio 2.1 0.0 - 4.4 LAB CHEMISTRY METHOD 06/21/2024 6:23 PM EST [facility] Blood Venous blood specimen / Unknown Venipuncture / Unknown 06/21/2024 1:22 PM EST 06/21/2024 2:18 PM EST us Star Norton MD LAB BLOOD ORDERABLES Final Res ult [facility] [address] [place] [address], * CODIE DEXA AXIAL SKELETON (08/05/2020 11:35 AM EST) Anatomical Region Laterality Modality Mammography 08/05/2020 10:3 1 AM EST Narrative 08/05/2020 11:35 AM EST [facility] Diagnostic Imaging Department [address] [place] [address] Patient: ERIKA MCCARTHY Brooke /Age/Sex: 1950 - 70 - F Unit#: [id number] Location/Status: [facility] Mnemonic/Ordering Site: MAMDEXAAX/SPMAM Ordering Physician: GEORGE SEGUNDO MD [facility] Dexa Axial Skeleton - 08/05/201123 HISTORY: The patient is a 70-year-old postmenopausal female with clinical concern for metabolic bone disease. FINDINGS: Dual energy x-ray absorptiometry of the lumbar spine and femurs is performed. The mean bone mineral density at L1-3 is 1.155 gm/cm2 which is 99% of that of young normals and 112% of that of age matched controls. This yields a T- score of -0.1 and a Z-score of 1.1 and there is therefore no evidence of osteoporosis or osteopenia here. The mean bone mineral density of the femurs bilaterally is 0.749 gm/cm2 which is 74% of that of young normals and 88% of that of age matched controls. This yields a T-score of -2.1 and a Z-score of -0.8 which is diagnostic of osteopenia. However, the T-score of the right femoral neck is -2.5 and that of the left femoral neck is -2.6 which is diagnostic of osteoporosis. IMPRESSION: 1. Osteoporosis. 2. FRAX analysis yields a 10-year probability of major osteoporotic fracture of 23.0% and a 10-year probability of hip fracture of 6.1%. Code 02620 Dictating Physician: KIT MCCOLLUM MD Electronically Signed by: KIT MCCOLLUM MD Dic Date/Time: 08/05/20 1134 Sign date/Time: 08/05/20 1135 Procedure Note Kit Mccollum MD - 06/21/2022 [facility] Diagnostic Imaging Department [address] [place], [place] [id number] Patient: ERIKA MCCARTHY Brooke DennisB./Age/Sex: 1950 - 70 - F Unit#: [id number] Location/Status[facility] Mnemonic/Ordering Site: [facility] Ordering Physician: GEORGE SEGUNDO MD Codie Dexa Axial Skeleton - 08/05/201123 HISTORY: The patient is a 70-year-old postmenopausal female withclinical concern for metabolic bone disease. FINDINGS: Dual energy x-ray absorptiometry of the lumbar spine and femursis performed. The mean bone mineral density at L1-3 is 1.155 gm/cm2 which is99% of that of young normals and 112% of that of age matched controls. Thisyields a T- score of -0.1 and a Z-score of 1.1 and there is therefore no evidence of osteoporosis or osteopenia here. The mean bone mineral density of the femurs bilaterally is 0.749 gm/qg7hpbuz is 74% of that of young normals and 88% of that of age matched controls.This yields a T-score of -2.1 and a Z-score of -0.8 which is diagnostic of osteopenia. However, the T-score of the right femoral neck is -2.5 andthat of the left femoral neck is -2.6 which is diagnostic of osteoporosis. IMPRESSION: 1. Osteoporosis. 2. FRAX analysis yields a 10-year probability of major osteoporoticfracture of 23.0% and a 10-year probability of hip fracture of 6.1%. Code 42612 Dictating Physician: KIT MCCOLLUM MD Electronically Signed by: KIT MCCOLLUM MD Dic Date/Time: 08/05/20 1134 Sign date/Time: 08/05/20 1135 George Segundo MD IMG BI PROCEDURES Final Result from Last 3 Months or Most Recently Relevant to Health Maintenance Insurance MEDICARE [facility] [place]ICAID [place] Care Teams Mineral Ore Processing Labourer Relationship Specialty Start Date End Date Star Norton MD [address] [place] [address] PCP - General 06/13/23
--- OUTSIDE RECORDS SUMMARY | 2025-02-28 13:49 | XMS_ITS | Encounter Summary ---
Author Organization [facility] Address [address] [place] [address] Care Team Providers Care Petrography Teacher Name Role Phone Terrance Buitrago MD Primary Care Provider U Jose Javed MD Unavailable [phone] Jan Segundo Unavailable Unavailable Natali Phillip MD Unavailable Horacio Juarez MD Unavailable Unavailab Damir Haas MD Unavailable UnavailAnjum Newsome Unavailable Unavailable Star Norton MD Primary Care Provider Unavail able Erika Souza PA-C Unavailable Encounter Details Date Type Department Care Team Description 04/06/2023 ON LICENSE OF [facility] Medical Records [address] [place] [address] Abstract, Provider Social History Tobacco Use Types [...] Date/Time Associated Diagnosis Comments OUTSIDE LAB Routine 04/06/2023 documented in this encounter Results * OUTSIDE LAB (04/06/2023) Provider Default LAB documented in this encounter Visit Diagnoses Not on filedocumented in this encounter Care Teams Petrography Teacher Relationship Specialty Start Date End Date Terrance Buitrago MD PCP - General Internal Medicine 08/01/1706/02 Star Norton MD [address] [place] [address] PCP - General Internal Medicine 06/13/23 Jose Orozco MD [address] [address] Specialist Cardiology 06/01/23 Jan Segundo [address] [address] Obstetrics/Gynecology 06/12/23 Natali Phillip MD [address] [place] [address] Specialist Pulmonology 06/12/23 Horacio Juarez MD [address] [place] [address] Gastroenterology 06/12/23 Damir Fried MD [address] [place] [address] Rheumatology 06/12/23 Anjum Brody [address] [place] [address] Ophthalmology 06/12/23 Erika Souza PA-C [address] [place] [address] Specialist Cardiology 08/09/23 documented as of this encounter
--- OUTSIDE RECORDS SUMMARY | 2025-02-28 13:49 | XMS_ITS | Encounter Summary ---
Author Organization [facility] Address [address] [place] [address] Care Team Providers Care Proof Reader Name Role Phone Terrance Buitrago MD Primary Care Provider U Jose Javed MD Unavailable [phone] Jan Segundo Unavailable Unavailable Natali Phillip MD Unavailable Horacio Juarez MD Unavailable Unavailab Damir Haas MD Unavailable UnavailAnjum Newsome Unavailable Unavailable Star Norton MD Primary Care Provider Unavail able Erika Souza PA-C Unavailable Encounter Details Date Type Department Care Team Description 05/22/2020 Orders Only Pulmonology - [place] 175 [facility] [address] [place] [phone] Natali Phillip MD [address] [place] [address] LACI (mycobacterium avium-intracellulare) (HCC) (Primary Dx) Social History Tobacco Use Types Packs/Day Years [...] encounter Visit Diagnoses Diagnosis LACI (mycobacterium avium-intracellulare) (HCC)- Primary Pulmonary diseases due to other mycobacteria documented in this encounter Care Teams Proof Reader Relationship Specialty Start Date End Date Terrance Buitrago MD PCP - General Internal Medicine 08/01/1706/02 Star Norton MD [address] [place] [address] PCP - General Internal Medicine 06/13/23 Jose Orozco MD [address] [address] Specialist Cardiology 06/01/23 Jan Segundo [address] [address] Obstetrics/Gynecology 06/12/23 Natali Phillpi MD [address] [place], [place] Specialist Pulmonology 06/12/23 Horacio Juarez MD [address] [place] [address] Gastroenterology 06/12/23 Damir Fried MD [address] [place] [address] Rheumatology 06/12/23 Anjum Brody [address] [place] [address] Ophthalmology 06/12/23 Erika Souza PA-C [address] [place], [place] Specialist Cardiology 08/09/23 documented as of this encounter
--- OUTSIDE RECORDS SUMMARY | 2025-02-28 13:49 | XMS_ITS | Encounter Summary ---
Author Organization [facility] Address [address] [place] [address] Care Team Providers Care Scale Operator Name Role Phone Terrance Buitrago MD Primary Care Provider U Jose Javed MD Unavailable [phone] Jan Segundo Unavailable Unavailable Natali Phillip MD Unavailable Horacio Juarez MD Unavailable Unavailab Damir Haas MD Unavailable UnavailAnjum Newsome Unavailable Unavailable Star Norton MD Primary Care Provider Unavail able Erika Souza PA-C Unavailable Reason for Visit * Reason Comments E-prescribe Rx Request Encounter Details Date Type Department Care Team Description 04/09/2020 Refill Pulmonology - [place] 175 [facility] [address] [place] [address] Natali Phillip MD [address] [place] [address] E-prescribe Rx Request Social History [...] * Telephone Encounter - Carmella Macdonald - 04/09/2020 8:56 AM EDT - 03.17.2020May - 06.08.2020 Refills - 4 documented in this encounter Plan of Treatment Not on file documented as of this encounter Visit Diagnoses Diagnosis LACI (mycobacterium avium-intracellulare) ([facility]) Pulmonary diseases due to other mycobacteria documented in this encounter Care Teams Scale Operator Relationship Specialty Start Date End Date Terrance Buitrago MD PCP - General Internal Medicine 08/01/1706/02 Star Norton MD [address] [place] [address] PCP - General Internal Medicine 06/13/23 Jose Orozco MD [address] [address] Specialist Cardiology 06/01/23 Jan Segundo [address] [address] Obstetrics/Gynecology 06/12/23 Natali Phillip MD [address] [place], [place] Specialist Pulmonology 06/12/23 Horacio Juarez MD [address] [place] Gastroenterology 06/12/23 Damir Fried MD [address] [place], [place] Rheumatology 06/12/23 Anjum Brody [address] [place] [address] Ophthalmology 06/12/23 Erika Souza PA-C [address] [place], [place] Specialist Cardiology 08/09/23 documented as of this encounter
--- OUTSIDE RECORDS SUMMARY | 2025-02-28 13:49 | XMS_ITS | Encounter Summary ---
Author Organization [facility] Address [address] [place] [address] Care Team Providers Care Printing Press Operator Name Role Phone Terrance Buitrago MD Primary Care Provider U Jose Javed MD Unavailable [phone] Jan Segundo Unavailable Unavailable Natali Phillip MD Unavailable Horacio Juarez MD Unavailable Unavailab Damir Haas MD Unavailable UnavailAnjum Newsome Unavailable Unavailable Star Norton MD Primary Care Provider Unavail able Erika Souza PA-C Unavailable Encounter Details Date Type Department Care Team Description 12/11/2019 Orders Only Pulmonology - [place] 175 [facility] [address] [place] [phone] Natali Phillip MD [address] [place] [address] Pulmonary nodule Social History Tobacco Use Types Packs/Day Years [...] CAT SCAN OF CHEST NO CONTRAST Routine 12/10/2019 Pulmonary nodule documented in this encounter Results * CAT SCAN OF CHEST NO CONTRAST (12/10/2019) Natali Phillip MD CT SCANS documented in this encounter Visit Diagnoses Diagnosis Pulmonary nodule Solitary pulmonary nodule documented in this encounter Care Teams Printing Press Operator Relationship Specialty Start Date End Date Terrance Buitrago MD PCP - General Internal Medicine 08/01/1706/02 Star Norton MD [address] [place] [address] PCP - General Internal Medicine 06/13/23 Jose Orozco MD [address] [address] Specialist Cardiology 06/01/23 Jan Segundo [address] [address] Obstetrics/Gynecology 06/12/23 Natali Phillip MD [address] [place] [address] Specialist Pulmonology 06/12/23 Horacio Juarez MD [address] [place] [address] Gastroenterology 06/12/23 Damir Fried MD [address] [place] [address] Rheumatology 06/12/23 Anjum Brody [address] [place] [address] Ophthalmology 06/12/23 Erika Souza PA-C [address] [place] [address] Specialist Cardiology 08/09/23 documented as of this encounter
--- OUTSIDE RECORDS SUMMARY | 2025-02-28 13:49 | XMS_ITS | Encounter Summary ---
Author Organization [facility] Address [address] [place] [address] Care Team Providers Care Aerospace Technician Name Role Phone Terrance Buitrago MD Primary Care Provider U Jose Javed MD Unavailable [phone] Jan Segundo Unavailable Unavailable Natali Phillip MD Unavailable Horacio Juarez MD Unavailable Unavailab Damir Haas MD Unavailable UnavailAnjum Newsome Unavailable Unavailable Star Norton MD Primary Care Provider Unavail able Erika Souza PA-C Unavailable Encounter Details Date Type Department Care Team Description 02/09/2023 [facility] Medical Records [address] [place] [address] Abstract, Provider Social History Tobacco Use Types [...] Date/Time Associated Diagnosis Comments OUTSIDE LAB Routine 02/09/2023 documented in this encounter Results * OUTSIDE LAB (02/09/2023) Provider Default LAB documented in this encounter Visit Diagnoses Not on filedocumented in this encounter Care Teams Aerospace Technician Relationship Specialty Start Date End Date Terrance Buitrago MD PCP - General Internal Medicine 08/01/1706/02 Stra Norton MD [address] [place] [address] PCP - General Internal Medicine 06/13/23 Jose Orozco MD [address] [address] Specialist Cardiology 06/01/23 Jan Segundo [address] [address] Obstetrics/Gynecology 06/12/23 Natali Phillip MD [address] [place] [address] Specialist Pulmonology 06/12/23 Horacio Juarez MD [address] [place] [address] Gastroenterology 06/12/23 Damir Fried MD [address] [place] [address] Rheumatology 06/12/23 Anjum Brody [address] [place] [address] Ophthalmology 06/12/23 Erika Souza PA-C [address] [place] [address] Specialist Cardiology 08/09/23 documented as of this encounter
--- OUTSIDE RECORDS SUMMARY | 2025-02-28 13:49 | XMS_ITS | Encounter Summary ---
Author Organization [facility] Address [address] [place] [address] Care Team Providers Care Small Engine Specialist Name Role Phone Terrance Buitrago MD Primary Care Provider U Jose Javed MD Unavailable [phone] Jan Segundo Unavailable Unavailable Natali Phillip MD Unavailable Horacio Juarez MD Unavailable Unavailab Damir Haas MD Unavailable UnavailAnjum Newsome Unavailable Unavailable Star Norton MD Primary Care Provider Unavail able Erika Souza PA-C Unavailable Encounter Details Date Type Department Care Team Description 04/26/2004 SCAN Medical Records [address] [place] [address] Abstract, Provider Social History Tobacco Use Types Packs/Day Years Used Date Smoking Tobacco: Never Assessed Sex Assigned at Date Recorded Not on file documented as of this encounter Plan of Treatment Not on file documented as of this encounter Procedures Procedure Name Priority Date/Time Associated Diagnosis Comments OUTSIDE NUCLEAR STRESS TEST Routine 04/26/2004 documented in this encounter Results * OUTSIDE NUCLEAR STRESS TEST (04/26/2004) Provider Default CARDIOLOGY documented in this encounter Visit Diagnoses Not on filedocumented in this encounter Care Teams Small Engine Specialist Relationship Specialty Start Date End Date Terrance Buitrago MD PCP - General Internal Medicine 08/01/1706/02 Star Norton MD [address] [place] [address] PCP - General Internal Medicine 06/13/23 Jose Orozco MD [address] [place] [address] Specialist Cardiology 06/01/23 Jan Segundo [address] [place] [address] Obstetrics/Gynecology 06/12/23 Natali Phillip MD [address] [place] [address] Specialist Pulmonology 06/12/23 Horacio Juarez MD [address] [place] [address] Gastroenterology 06/12/23 Damir Fried MD [address] [place] [address] Rheumatology 06/12/23 Anjum Brody [address] [place] [address] Ophthalmology 06/12/23 Erika Souza PA-C [address] [place] [address] Specialist Cardiology 08/09/23 documented as of this encounter
[2025-02-28 14:02] VITALS: BP 110/62; PULSE 64; O2SAT 96; BMI 25.5
--- NOTE | 2025-02-28 14:02 | MHC.OFFVIS ---
Vital Signs 02/28/25 14:02 Height 5 ft 5 in Weight 153 lb BMI 25.5 BP 110/62 Blood Pressure Location Rt brachial Position Supine Pulse 64 Pulse Source Pulse Oximeter Pulse Oximetry (%) 96 Oxygen Delivery Method Room Air Intake Visit Reasons: 3m follow up Wind Energy Mechanic Required: No Accompanied by: Self / Same As Patient Allergies heyfever Allergy (Unknown, Uncoded 02/28/25 14:05) Unknown HPI Comments Details: 74 year old female with copd is being evaluated for ANNIE she is on cpap therapy. 12/2024 PSG is consistent with AHI of 4 and O2 is 85%. Significant Periodic Limb Movement. REM sleep is not recorded which underestimates her sleep arousals. Increased PLMD 18.5/hr. Will try her on dopamine agonist and check labs. She has a h/o copd, mycobactrium infection, with chronic upper respiratory infections, bronchitis which leads to chronic bronchitis and pneumonia, she is followed by her Guest Relations Associate. She goes to sleep at 10pm, tosses and turns all night as evidenced on her sleep study. She starts reading and this helps her to fall asleep. She has multiple arousals and feels chronically fatigued. She wakes up 3-4x to use the bathroom. She notices less face ticks/movements. Just notices the twitches in her feet more now. Mood and diet is okay, she is trying to lower her cholesterol levels and walks daily as tolerable with her cane. Denies migraines. Memory is poor at base line, she forgets a lot, can be clearer some days. She loses things easily, has difficulty with word recall is slow, attention and focus decreased. She does puzzles, socializes daily, does all her yard work. She lives independently and is able to complete all her ADLs. She needs some minor support with daily task and requests assistance. RLS: uncomfortable sensation bilaterally in feet travels up to the shins, she thinks it was TD due to anti depressant use. (Venlafaxine). Her hands cramp, and legs get tremulous, and she feels anxious. [facility] Medical History COPD (chronic obstructive pulmonary disease) Basal cell carcinoma Surgical History H/O heart surgery S/P Mohs surgery for basal cell carcinoma History of cataract extraction with lens replacement H/O splenectomy Family History Father Cancer Stroke Mother Cancer Social History Alcohol intake: never Patient Tobacco Use Status: Former Tobacco user Physical Exam Vital Signs: Last Vital Signs Pulse 64 02/28/25 14:02 BP 110/62 02/28/25 14:02 Pulse Ox 96 02/28/25 14:02 Oxygen Delivery Method Room Air 02/28/25 14:02 BMI result Body Mass Index 25.5 Const General: cooperative, comfortable and no acute distress Orientation/consciousness: patient oriented x3 Eyes Pupils: Equal, round and reactive pupils present Neck Neck: Yes full ROM Resp Effort & Inspection: able to speak in complete sentences Neuro Other: slow to stand, ambulates with cane, stooped posture, gait is antalgic, uses her walker when she is more fatigued. General: patient oriented x3 and moves all extremities Cranial nerves: Yes Facial sensation intact/muscles of mastication intact, Yes Equal, round and reactive pupils present, Yes Normal accommodation reflex present, Yes Normal facial strength present, Yes Midline tongue present, Yes Ability to bilaterally rotate head present and Yes Ability to bilaterally elevate shoulders present Gait exam (Neuro): Antalgic gait present Motor exam (neuro): Normal motor muscle tone present throughout Psych Appearance: grossly normal Results Reviewed Results Reviewed: PSG 12/2024 AHI is 4 and oxygen is 8%%, with significant Periodic Limb movements, causing disrupted sleep. 18.5/hr. REM sleep not recorded due to disruptions in sleep. Will try her on dopamine agonist and check labs for deficiencies. Will check labs. Assessment & Plan Assessment & Plan (1) Organic periodic limb movement disorder: Code(s): G47.61 - Periodic limb movement disorder Category: Medical (2) Obstructive sleep apnea: Comment: Inspire therapy if her AHI is improved. Code(s): G47.33 - Obstructive sleep apnea (adult) (pediatric) Category: Medical (3) Neuroleptic-induced tardive dyskinesia: Comment: h/o Risperdal exposure, chronic Effexor. Code(s): G24.01 - Drug induced subacute dyskinesia; T43.505A - Adverse effect of unspecified antipsychotics and neuroleptics, initial encounter Category: Medical (4) Low back pain radiating to left lower extremity: Code(s): M54.50 - Low back pain, unspecified; M79.605 - Pain in left leg Category: Medical (5) Leg cramping: Code(s): R25.2 - Cramp and spasm Category: Medical (6) Cramping of hands: Code(s): R25.2 - Cramp and spasm Category: Medical Plan ANNIE on cpap therapy, with h/o of copd, and heart sugery, continue on cpap as her co-morbidities and risk vs. benefits exceed usng cpap. [employer] - nose pillows - and hose with humidification. [employer] [facility] [employer] services ([email or web address]/) Continue on cpap as her co-morbidities and risk vs. benefits exceed usng cpap. [employer] - nose pillows - and hose with humidification. RLS / PLMD - 18. 5/ hour, continue use of Magnesium daily at bedtime 400mg po daily. Folate elevated, will recheck iron levels, and start her on B12. Labs reviewed:Labs from [facility] are normal with exception of folate >20. HDL was 90, TSH, vit d, b12, homocysteine and mma all normal. Miesha, life labs at [facility] Dr. andre Verduzco in 3 months for compliance. Orders: Orders Ferritin Today D52.0 - Dietary folate deficiency anemia IRON PROFILE Today D52.0 - Dietary folate deficiency anemia, G47.9 - Sleep disorder, unspecified, R53.83 - Other fatigue Vitamin B12 and Folate Today D52.0 - Dietary folate deficiency anemia Vitamin B6 Today D52.0 - Dietary folate deficiency anemia Vitamin B12 Today D52.0 - Dietary folate deficiency anemia Vitamin B1 Today D52.0 - Dietary folate deficiency anemia Vitamin D 25-OH Total Today D52.0 - Dietary folate deficiency anemia Medications: Refilled magnesium oxide may hold for loose stools 400 mg PO BEDTIME 30 tabs 11RF 30 days Patient Instructions: Sleep Hygiene provided: set a scheduled bedtime and wake time to help regulate the circadian rhythm and balance the release of pituitary hormones. Sleep in a dark room, temperatures below 68 degrees, and no devices n bed. Limit caffeinated products 6 hours prior to bed, and limit fluids 2-4 hours prior to bed. Gentle night yoga, diffusing essential oils, and playing soft music can be relaxing. Coding Level of Care Code Est Pt Level 4 (18018) Diagnoses Organic periodic limb movement disorder G47.61 Obstructive sleep apnea G47.33 Neuroleptic-induced tardive dyskinesia G24.01; T43.505A Low back pain radiating to left lower extremity M54.50; M79.605 Leg cramping R25.2 Cramping of hands R25.2
== END 2025-02-28 15:07 | disposition home or self-care (01) ==
LOC: HO.HSMS 13:46
PROVIDERS: PCP Internal Medicine; Visit Provider Physician Assistant Medical
DX: G47.61 Periodic limb movement disorder (principal); G47.33 Obstructive sleep apnea (adult) (pediatric); G24.01 Drug induced subacute dyskinesia; T43.505A Adverse effect of unspecified antipsychotics and neuroleptics, initial encounter; M54.50 Low back pain, unspecified; M79.605 Pain in left leg; R25.2 Cramp and spasm
CPT/HCPCS: 99214

== ENCOUNTER → 2025-02-28 13:46 | Outpatient (BNVA) | payer MEDICARE, SELFPAY | PROVIDERS: PCP Internal Medicine; Visit Provider Physician Assistant Medical | DX: G47.61 Periodic limb movement disorder (principal); G47.33 Obstructive sleep apnea (adult) (pediatric); G24.01 Drug induced subacute dyskinesia; T43.505A Adverse effect of unspecified antipsychotics and neuroleptics, initial encounter; M54.50 Low back pain, unspecified; M79.605 Pain in left leg | CPT/HCPCS: 99212 ==